=== PATIENT | male | born 1975 | race Two or more races ===

== ENCOUNTER 2020-03-10 01:45 | Emergency (ER) | payer BC ==
[2020-03-10] MEDS ORDERED: LORazepam 2 MG/ML VIAL IV STA (01:51)
[2020-03-10] MEDS ORDERED: HALOPERIDOL 5MG/ML VIAL (J1630 PER 1) IM STA (01:51)
[2020-03-10 02:00] LABS: HEMATOCRIT 49.9 % (42.0-52.0); HEMOGLOBIN 16.5 g/dl (13.5-17.5); MEAN CORPUSCULAR HEMOGLOBIN 28.8 pg (27.0-33.0); MEAN CORPUSCULAR HGB CONC 33.1 g/dl (32.0-36.5); MEAN CORPUSCULAR VOLUME 87.1 fl (80.0-96.0); PLATELET COUNT, AUTOMATED 343 10^3/uL (150-450); RED BLOOD COUNT 5.73 10^6/uL (4.30-6.10); WHITE BLOOD COUNT 13.6 10^3/uL (4.0-10.0)
[2020-03-10 02:36] LABS: ACETAMINOPHEN LEVEL < 2.0 UG/ML (10.0-30.0); ALBUMIN 4.4 GM/DL (3.2-5.2); ALT/SGPT 27 U/L (12-78); BILIRUBIN,DIRECT 0.1 MG/DL (0.0-0.2); BILIRUBIN,TOTAL 0.5 MG/DL (0.2-1.0); BLOOD UREA NITROGEN 8 MG/DL (7-18); CALCIUM LEVEL 8.9 MG/DL (8.5-10.1); CARBON DIOXIDE LEVEL 24 MEQ/L (21-32); CHLORIDE LEVEL 106 MEQ/L (98-107); CREATININE FOR GFR 1.11 MG/DL (0.70-1.30); ETHYL ALCOHOL (ETHANOL) 0.251 % (0.000-0.010); GLOMERULAR FILTRATION RATE > 60.0 (>60); GLUCOSE, FASTING 143 MG/DL (70-100); POTASSIUM SERUM 4.6 MEQ/L (3.5-5.1); SALICYLATE LEVEL 3.8 MG/DL (5.0-30.0); SODIUM LEVEL 143 MEQ/L (136-145); TOTAL PROTEIN 8.4 GM/DL (6.4-8.2)
[2020-03-10 02:38] LABS: AMPHETAMINES LEVEL URINE NEGATIVE (NEGATIVE); BARBITURATES URINE NEGATIVE (NEGATIVE); BENZODIAZEPINES URINE NEGATIVE (NEGATIVE); CANNABINOIDS URINE POSITIVE (NEGATIVE); COCAINE METABOLITE URINE NEGATIVE (NEGATIVE); METHADONE URINE NEGATIVE (NEGATIVE); OPIATES URINE NEGATIVE (NEGATIVE); PHENCYCLIDINE URINE NEGATIVE (NEGATIVE)
[2020-03-10 04:00] VITALS: BP 142/90
== END 2020-03-10 15:11 | disposition home or self-care (01) ==
LOC: M ED 01:45 → EDBD 01:45 → M ED 15:11
DX: F10.10 Alcohol abuse, uncomplicated (principal)
CPT/HCPCS: 80048; 80076; 80307; 84443; 85027; 96374; 96375; 99285; G0480; J1630; J2060

== ENCOUNTER → 2020-11-12 | Outpatient (CLI) | payer BC | LOC: M OUTALCOH 13:15 | PROVIDERS: ATTEND Psychiatry & Neurology Psychiatry | DX: Z13.39 Encounter for screening examination for other mental health and behavioral disorders (principal) ==

== ENCOUNTER 2020-12-03 08:40 | Outpatient (RCR) | payer BC | END 2020-12-07 | LOC: M OUTALCOH 08:40 | PROVIDERS: ATTEND Psychiatry & Neurology Psychiatry | DX: F10.20 Alcohol dependence, uncomplicated (principal); F17.200 Nicotine dependence, unspecified, uncomplicated ==

== ENCOUNTER 2021-01-20 00:19 | Emergency (ER) | payer BC ==
[~2021-01-20] VITALS: Ht 175.3 cm; Wt 71.3 kg
--- OUTSIDE RECORDS SUMMARY | 2021-01-20 00:24 | CCD | Summary of Care ---
Author Author [facility] Organization [facility] Address Unknown Phone Unavailable Care Team Providers Care U[employer] [place] Burnisher Name Role Phone Abelardo Thompson MD PP Reason for Visit * Reason Comments Alcohol Problem "Im here to detox from alco hol." * Auth/Cert Diagnoses / Procedures Referred By Contact Referred To Conta ct Specialty Diagnoses Alcohol withdrawal (CMS/HCC) Alcohol abuse Alcohol withdrawal syndrome without complication (CMS/HCC) [place] [address] [address] [address] [place] [address] Referral ID Status Reason Start Date Expiration Visits Vi sits Date Requested Authorized [id number] 1 1 Encounter Details Care Team Description Date Type Department Tone Whitney MD -57 [place] [address] Edilia Pond DO [address] [place] [address] Alcohol withdrawal syndrome without comp lication (CMS/HCC) (Primary Dx) 11/03/2020 Emergency [facility] 11/04/2020 10-42 [place] [address] Discharge Summary - DO John Barbosa 11/04/2020 1:44 PM EDT Inpatient Discharge Summary Patient Name: Amos OTERO Age: 7 1975 45 y.o. Patient Admitting Provider: Tone Whitney MD Discharging Provider: DO EDILIA Barbosa DO Primary Care Physician at Discharge: ABELARDO THOMPSON MD [phone] Admission Date: LOS: 0 Days Discharge Date: 11/04/2020 Admission Diagnoses: Alcohol withdrawal (CMS/[facility]) [F10.239] Alcohol abuse [F10.10] Alcohol withdrawal syndrome without complication (CMS/[facility]) [F10.230] Discharge Diagnoses: Active Problems: Alcohol abuse Essential hypertension History of dysthymic disorder Assessment and Plan: Assessment/Plan Medical Problems Problem List Alcohol abuse Essential hypertension History of dysthymic disorder A & P Notes: Mild alcohol withdrawal with underlying alcohol use disorder resolved. Patient discharged home. He will decide on what type of rehabilitation he would like if he chooses to enter rehabilitation. Discharge Instructions and Follow-Ups: Activity: activity as tolerated Diet: regular diet Recommended follow ups: The patient should follow up with PCP within 1 week(s) of discharge. Future Appts: No future appointments. Follow-up Provider: Primary care provider (PCP) Abelardo Thompson MD [address] [place] [address] Subjective HPI: Alcohol withdrawal resolved. Hospital Course: Patient was brought to hospital on observation status for alcohol use disorder with alcohol withdrawal. Patient only required very low benzodiazepine. By the next day his alcohol withdrawal symptoms are clear resolved. He had no tremors. Patient had no tachycardia throughout his ER visit and hospitalization . Mild elevation of blood pressures however patient does have underlying essential hypertension. As the patient is medically stable this time will be discharged. Patient was interested alcohol rotation however he does not wish to go directly to inpatient alcohol rehabilitation. There is not a bed available at our facility. Patient does not identify that he wishes inpatient rehabilitation at this time. Allergies: Allergies Allergen Reactions Banana Anaphylaxis Severity: Anaphylaxis - Severe; Type: Food; Severity: Anaphylaxis - Severe; Ingredients: banana; Type: Drug; Discharge Medications: Your medication list CONTINUE taking these medications Instructions Last Dose Given Next Dose Due Minipress 1 mg capsule Generic drug: prazosin PARoxetine 20 mg tablet Commonly known as: PAXIL SEROqueL 25 mg tablet Generic drug: QUEtiapine Consults: IP CONSULT TO HOSPITALIST IP CONSULT TO HOSPITAL INTERVENTION SERVICES IP CONSULT TO NUTRITION SERVICES Laboratory Results: Recent Results (from the past 24 hour(s)) Extra Urine Collection Time: 11/03/20 2:00 PM Result Value Ref Range Extra Tube Hold for add-on Urinalysis with reflex microscopic Collection Time: 11/03/20 2:01 PM Result Value Ref Range Color, Urine Light Yellow Yellow, Light Yellow, Straw, Clear, Colorless, Dark Yellow Clarity, Urine Clear Clear pH, Urine 8.0 (A) 5.0, 5.5, 6.0, 6.5, 7.0, 7.5 Leukocytes, Urine Negative Negative, Trace Nitrite, Urine Negative Negative Protein, Urine 100 (A) Negative, Trace mg/dL Glucose, Urine Normal Normal mg/dL Bilirubin, Urine Negative Negative Specific [place], Urine 1.015 1.005 - 1.030 Ketones, Urine Negative Negative, Trace mg/dL Urobilinogen, Urine Normal Normal mg/dL Blood, Urine Negative Negative Urinalysis microscopic Collection Time: 11/03/20 2:01 PM Result Value Ref Range RBC, Urine None Seen 0 - 2 /HPF WBC, Urine 0-2 0 - 2 /HPF Squamous Epithelial, Urine 1+ /lpf Bacteria, Urine None Seen Few, None Seen /HPF Urine Drug Screen Collection Time: 11/03/20 2:01 PM Result Value Ref Range Amphetamine+Me thamphetamine Screen, Ur Negative Negative (Cutoff: 1000 ng/mL) Benzodiazepine s Screen, Urine Negative Negative (Cutoff: 200 ng/mL) Cannabinoid Screen, Urine Positive (A) Negative (Cutoff: 50 ng/mL) Cocaine Screen, Urine Negative Negative (Cutoff: 300 ng/mL) Barbiturate Screen, Ur Negative Negative (Cutoff: 200 ng/mL) Opiate Scrn, Ur Negative Negative (Cutoff: 300 ng/mL) Creatinine, Urine UDS 119.6 >30.0 mg/dL Basic metabolic panel Collection Time: 11/04/20 4:54 AM Result Value Ref Range Sodium 135 135 - 146 mmol/L Potassium 3.6 3.5 - 5.3 mmol/L Chloride 103 98 - 107 mmol/L CO2 27 21 - 32 mmol/L BUN 13 7 - 23 mg/dL Creatinine 0.7 0.7 - 1.3 mg/dL Glucose 106 (H) 65 - 99 mg/dL Calcium 8.7 8.4 - 10.4 mg/dL Anion Gap 5 5 - 15 eGFR >60 >60 mL/min/1.73m*2 BUN/Creatinine Ratio 19 CBC w/ auto diff (Lab Performable) Collection Time: 11/04/20 4:54 AM Result Value Ref Range Auto WBC 6.0 4.0 - 10.5 10*3/uL RBC 4.44 4.00 - 5.80 10*6/ L Hemoglobin 13.6 13.0 - 18.0 g/dL Hematocrit 39.4 37.0 - 50.0 % MCV 88.7 77.0 - 100.0 fL MCH 30.6 26.0 - 33.0 pg MCHC 34.5 31.0 - 36.0 g/dL RDW 13.1 12.0 - 17.0 % MPV 11.1 8.0 - 12.0 fL Neutrophils Relative 55.7 35.0 - 78.0 % Lymphocytes Relative 34.1 20.0 - 42.0 % Monocytes Relative 6.4 0.0 - 15.0 % Eosinophils Relative 2.9 <=10.0 % Basophils Relative 0.7 <=2.0 % Neutrophils Absolute 3.32 1.40 - 8.40 10*3/uL Lymphocytes Absolute 2.03 1.00 - 4.00 10*3/uL Monocytes Absolute 0.38 0.00 - 1.50 10*3/uL Eosinophils Absolute 0.17 <=0.70 10*3/uL Basophils Absolute 0.04 <=0.10 10*3/uL Platelets 146 125 - 425 10*3/uL Immature Neutrophils Relative 0.2 <=0.5 % Immature Neutrophils Absolute 0.01 <=0.40 10*3/uL Procedures: Radiology Studies: CT Head wo IV Contrast PROCEDURE: CT HEAD/BRAIN W/O CONTRAST ORD#:[id number] EXAM DATE: 03/19/2018 14:04 ACC#: [id number] -REPORT: HISTORY: seizure. TECHNIQUE: Noncontrast CT of the head. This CT exam was performed using one or more of the following dose reduction techniques: automated exposure control, adjustment of the mA and/or kV according to patient size, and/or use of iterative reconstruction techniques. COMPARISON: None. FINDINGS: The ventricles are normal in size. No acute intracranial hemorrhage, mass effect, or midline shift is seen. Polypoid mucosal disease is noted in the sphenoid sinuses bilaterally. There is dehiscence of the lamina papyracea bilaterally. There is under pneumatization of the left mastoid complex. -IMPRESSION: No CT evidence of acute intracranial abnormality. DWS: [id number] -TECHNICAL NOTE: This CT exam was performed using one or more of the following dose reduction techniques: automated exposure control, adjustment of the mA and/or kV according to patient size, and/or use of iterative reconstruction techniques. [facility] RADIOLOGY FLUOROSCOPY TIME SINCE 07/08/2009: 0 sec (=0.00 min) EXAM DATE: 03/19/2018 14:04 ORDERED BY:LUCITA BOWIE [employer] [facility] PACS IMAGES READ BY: ROSANGELA CASTANEDA MD SIGNED 03/19/2018 14:14 BY ROSANGELA CASTANEDA MD [facility] [[email or web address]] ACC#: [id number] Pending Labs: Discharge Disposition: Discharge to Home (Routine) Code Status at Discharge: FULL Objective Physical Examination: Physical Exam Constitutional: Appearance: He is well-developed. Cardiovascular : Rate and Rhythm: Normal rate and regular rhythm. Heart sounds: Normal heart sounds. No murmur heard. Pulmonary: Effort: Pulmonary effort is normal. Breath sounds: Normal breath sounds. Abdominal: General: Bowel sounds are normal. Palpations: Abdomen is soft. Neurological: Comments: No tremors. Gait normal. Physical Exam at Discharge: Condition of Patient on Discharge: Good Visit Vitals BP 140/90 (BP Location: Rt Upper Arm, Patient Position: Sitting) Pulse 80 Temp 36.5 C (97.7 F) (Oral) Resp 18 Ht 5' 9" Wt 156 lb 15.5 oz (71.2 kg) SpO2 100% BMI 23.18 kg/m Smoking Status Current Every Day Smoker BSA 1.86 m Attendings Time: Total discharge planning, communication/d iscussion and coordination of care today was less than 30 min EDILIA POND DO Allergies Comments Active Allergy Reactions Severity Noted Date Severity: Anaphylaxis - Severe; Type: Food; Severity: Anaphylaxis - Severe; Ingredients: banana; Type: Drug; Banana Anaphylaxis High 12/26/2017 documented as of this encounter (statuses as of 11/05/2020) Medications End Date Status Medication Sig Dispensed Refills Start Date Active QUEtiapine (SEROqueL) 25 Take 1 tablet 0 mg tablet by mouth. Active prazosin (Minipress) 1 mg Take 1 0 capsule capsule by mouth. Active PARoxetine (PAXIL) 20 mg Take 1 tablet 0 tablet by mouth once a day. documented as of this encounter (statuses as of 11/05/2020) Active Problems Problem Noted Date Alcohol abuse 11/03/2020 Essential hypertension 11/03/2020 History of dysthymic disorder 11/03/2020 documented as of this encounter (statuses as of 11/05/2020) Resolved Problems Problem Noted Date Resolved Date Alcohol withdrawal 11/03/2020 11/04/2020 documented as of this encounter (statuses as of 11/05/2020) Immunizations Name Administration Dates Next Due Influenza Split 11/26/2009 Influenza, Quadrivalent 12/30/2017 Td 08/05/2009 documented as of this encounter Social History Date Tobacco Use Types Packs/Day Years Used Current Every Day Smoker 0.5 Comments Alcohol Use Standard Drinks/Week Not Asked 98 (1 standard drink = 0.6 oz pure alcohol) Sex Assigned at Date Recorded Male 11/03/2020 11:04 AM EDT Industry Job Start Date Occupation Not on file Not on file Not on file Date Recorded COVID-19 Exposure Response 11/03/2020 11:06 AM EDT In the last month, have you been in contact with No / Unsure someone who was confirmed or suspected to have Coronavirus / COVID-19? documented as of this encounter Last Filed Vital Signs Reading Time Taken Comments Vital Sign 140/90 11/04/2020 10:58 AM EDT Blood Pressure 80 11/04/2020 10:58 AM EDT Pulse 36.5 C (97.7 F) 11/04/2020 10:58 AM EDT Temperature 18 11/04/2020 10:58 AM EDT Respiratory Rate 100% 11/04/2020 7:03 AM EDT Oxygen Saturation - - Inhaled Oxygen Concentration 71.2 kg (156 lb 15.5 oz) 11/03/2020 6:16 PM EDT Weight 175.3 cm (5' 9") 11/03/2020 6:16 PM EDT Height 23.18 11/03/2020 6:16 PM EDT Body Mass Index documented in this encounter Functional Status Date of Assessment Functional Status Response 11/03/2020 Are you deaf or do you have serious difficulty No hearing? 11/03/2020 Are you blind or do you have serious difficulty No seeing, even when wearing glasses? 11/03/2020 Do you have serious difficulty walking or climbing N o stairs? 11/03/2020 Do you have serious difficulty dressing or No bathing? 11/03/2020 Because of a physical, mental, or emotional No condition, do you have serious difficul ty doing errands alone such as visiting the doct or? Date of Assessment Cognitive Status Response 11/03/2020 Because of a physical, mental, or emotional No condition, do you have serious difficul ty concentrating, remembering, or making d ecisions? (5 years old or older) documented as of this encounter Discharge Summaries * Edilia Pond DO - 11/04/2020 1:44 PM EDT Inpatient Discharge Summary Patient Name: Amos OTERO Age: 7 1975 45 y.o. Patient Admitting Provider: Tone Whitney MD Discharging Provider: DO EDILIA Barbosa DO Primary Care Physician at Discharge: ABELARDO THOMPSON MD [phone] Admission Date: LOS: 0 Days Discharge Date: 11/04/2020 Admission Diagnoses: Alcohol withdrawal (CMS/[facility]) [F10.239] Alcohol abuse [F10.10] Alcohol withdrawal syndrome without complication (CMS/[facility]) [F10.230] Discharge Diagnoses: Active Problems: Alcohol abuse Essential hypertension History of dysthymic disorder Assessment and Plan: Assessment/Plan Medical Problems Problem List Alcohol abuse Essential hypertension History of dysthymic disorder A & P Notes: Mild alcohol withdrawal with underlying alcohol use disorder resolved. Patient discharged home. He will decide on what type of rehabilitation he would like if he chooses to enter rehabilitation. Discharge Instructions and Follow-Ups: Activity: activity as tolerated Diet: regular diet Recommended follow ups: The patient should follow up with PCP within 1 week(s) of discharge. Future Appts: No future appointments. Follow-up Provider: Primary care provider (PCP) Abelardo Thompson MD [address] [place] [address] Subjective HPI: Alcohol withdrawal resolved. Hospital Course: Patient was brought to hospital on observation status for alcohol use disorder w ith alcohol withdrawal. Patient only required very low benzodiazepine. By the next day his alcohol withdrawal symptoms are clear resolved. He had no tremors. Patient had no tachycardia throughout his ER visit and hospitalization. Mild elevation of blood pressures however patient does have underlying essential hype rtension. As the patient is medically stable this time will be discharged. Jacquelyn mathew was interested alcohol rotation however he does not wish to go directly to inpatient alcohol rehabilitation. There is not a bed available at our facility. Patient does not identify that he wishes inpatient rehabilitation at this time . Allergies: Allergies Allergen Reactions Banana Anaphylaxis Severity: Anaphylaxis - Severe; Type: Food; Severity: Anaphylaxis - Severe; Ingredients: banana; Type: Drug; Discharge Medications: Your medication list CONTINUE taking these medications Instructions Last Dose Given Next Dose Due Minipress 1 mg capsule Generic drug: prazosin PARoxetine 20 mg tablet Commonly known as: PAXIL SEROqueL 25 mg tablet Generic drug: QUEtiapine Consults: IP CONSULT TO HOSPITALIST IP CONSULT TO HOSPITAL INTERVENTION SERVICES IP CONSULT TO NUTRITION SERVICES Laboratory Results: Recent Results (from the past 24 hour(s)) Extra Urine Collection Time: 11/03/20 2:00 PM Result Value Ref Range Extra Tube Hold for add-on Urinalysis with reflex microscopic Collection Time: 11/03/20 2:01 PM Result Value Ref Range Color, Urine Light Yellow Yellow, Light Yellow, Straw, Clear, Colorless, Dark Y ellow Clarity, Urine Clear Clear pH, Urine 8.0 (A) 5.0, 5.5, 6.0, 6.5, 7.0, 7.5 Leukocytes, Urine Negative Negative, Trace Nitrite, Urine Negative Negative Protein, Urine 100 (A) Negative, Trace mg/dL Glucose, Urine Normal Normal mg/dL Bilirubin, Urine Negative Negative Specific [place], Urine 1.015 1.005 - 1.030 Ketones, Urine Negative Negative, Trace mg/dL Urobilinogen, Urine Normal Normal mg/dL Blood, Urine Negative Negative Urinalysis microscopic Collection Time: 11/03/20 2:01 PM Result Value Ref Range RBC, Urine None Seen 0 - 2 /HPF WBC, Urine 0-2 0 - 2 /HPF Squamous Epithelial, Urine 1+ /lpf Bacteria, Urine None Seen Few, None Seen /HPF Urine Drug Screen Collection Time: 11/03/20 2:01 PM Result Value Ref Range Amphetamine+Methamphetamine Screen, Ur Negative Negative (Cutoff: 1000 ng/mL) Benzodiazepines Screen, Urine Negative Negative (Cutoff: 200 ng/mL) Cannabinoid Screen, Urine Positive (A) Negative (Cutoff: 50 ng/mL) Cocaine Screen, Urine Negative Negative (Cutoff: 300 ng/mL) Barbiturate Screen, Ur Negative Negative (Cutoff: 200 ng/mL) Opiate Scrn, Ur Negative Negative (Cutoff: 300 ng/mL) Creatinine, Urine UDS 119.6 >30.0 mg/dL Basic metabolic panel Collection Time: 11/04/20 4:54 AM Result Value Ref Range Sodium 135 135 - 146 mmol/L Potassium 3.6 3.5 - 5.3 mmol/L Chloride 103 98 - 107 mmol/L CO2 27 21 - 32 mmol/L BUN 13 7 - 23 mg/dL Creatinine 0.7 0.7 - 1.3 mg/dL Glucose 106 (H) 65 - 99 mg/dL Calcium 8.7 8.4 - 10.4 mg/dL Anion Gap 5 5 - 15 eGFR >60 >60 mL/min/1.73m*2 BUN/Creatinine Ratio 19 CBC w/ auto diff (Lab Performable) Collection Time: 11/04/20 4:54 AM Result Value Ref Range Auto WBC 6.0 4.0 - 10.5 10*3/uL RBC 4.44 4.00 - 5.80 10*6/L Hemoglobin 13.6 13.0 - 18.0 g/dL Hematocrit 39.4 37.0 - 50.0 % MCV 88.7 77.0 - 100.0 fL MCH 30.6 26.0 - 33.0 pg MCHC 34.5 31.0 - 36.0 g/dL RDW 13.1 12.0 - 17.0 % MPV 11.1 8.0 - 12.0 fL Neutrophils Relative 55.7 35.0 - 78.0 % Lymphocytes Relative 34.1 20.0 - 42.0 % Monocytes Relative 6.4 0.0 - 15.0 % Eosinophils Relative 2.9 <=10.0 % Basophils Relative 0.7 <=2.0 % Neutrophils Absolute 3.32 1.40 - 8.40 10*3/uL Lymphocytes Absolute 2.03 1.00 - 4.00 10*3/uL Monocytes Absolute 0.38 0.00 - 1.50 10*3/uL Eosinophils Absolute 0.17 <=0.70 10*3/uL Basophils Absolute 0.04 <=0.10 10*3/uL Platelets 146 125 - 425 10*3/uL Immature Neutrophils Relative 0.2 <=0.5 % Immature Neutrophils Absolute 0.01 <=0.40 10*3/uL Procedures: Radiology Studies: CT Head wo IV Contrast PROCEDURE: CT HEAD/BRAIN W/O CONTRAST ORD#:[id number] EXAM DATE: 03/19/2018 14:04 ACC#: [id number] -REPORT: HISTORY: seizure. TECHNIQUE: Noncontrast CT of the head. This CT exam was performed using one or more of the following dose reduction techniques: automated exposure control, adjustment of the mA and/or kV according to patient size, and/or use of iterative reconstruction techniques. COMPARISON: None. FINDINGS: The ventricles are normal in size. No acute intracranial hemorrhage, mass effect, or midline shift is seen. Polypoid mucosal disease is noted in the sphenoid sinuses bilaterally. There is dehiscence of the lamina papyracea bilaterally. There is under pneumatization of the left mastoid complex. -IMPRESSION: No CT evidence of acute intracranial abnormality. DWS: [id number] -TECHNICAL NOTE: This CT exam was performed using one or more of the following dose reduction techniques: automated exposure control, adjustment of the mA and/or kV according to patient size, and/or use of iterative reconstruction techniques. [facility]UM[facility] RADIOLOGY FLUOROSCOPY TIME SINCE 07/08/2009: 0 sec (=0.00 min) EXAM DATE: 03/19/2018 14:04 ORDERED BY:LUCITA BOWIE [facility] PACS IMAGES READ BY: ROSANGELA CASTANEDA MD SIGNED 03/19/2018 14:14 BY ROSANGELA CASTANEDA MD [facility] [[email or web address]] ACC#: [id number] Pending Labs: Discharge Disposition: Discharge to Home (Routine) Code Status at Discharge: FULL Objective Physical Examination: Physical Exam Constitutional: Appearance: He is well-developed. Cardiovascular: Rate and Rhythm: Normal rate and regular rhythm. Heart sounds: Normal heart sounds. No murmur heard. Pulmonary: Effort: Pulmonary effort is normal. Breath sounds: Normal breath sounds. Abdominal: General: Bowel sounds are normal. Palpations: Abdomen is soft. Neurological: Comments: No tremors. Gait normal. Physical Exam at Discharge: Condition of Patient on Discharge: Good Visit Vitals BP 140/90 (BP Location: Rt Upper Arm, Patient Position: Sitting) Pulse 80 Temp 36.5 C (97.7 F) (Oral) Resp 18 Ht 5' 9" Wt 156 lb 15.5 oz (71.2 kg) SpO2 100% BMI 23.18 kg/m Smoking Status Current Every Day Smoker BSA 1.86 m Attendings Time: Total discharge planning, communication/discussion and coordination of care tosal y was less than 30 min EDILIA POND DO documented in this encounter Discharge Instructions * Discharge Instr - AVS First Page* Safia Sampson RN - 11/04/2020 12:46 PM EDT Seek Emergency Treatment If needed, seek immediate medical attention at your local emergency department o r urgent care. Should you develop worsening chest discomfort, worsening shortne ss of breath, or other issues that may be immediately life threatening, call 9-1 -1. documented in this encounter H&P Notes * Tone Whitney MD - 11/03/2020 4:18 PM EDT Images from the original note were not included. [facility] Hospitalist History & Physical Examination Patient Name: Amos Lilly Patient Admission Date: 11/03/2020 12:22 PM Date of Service: 11/03/20 Attending Provider: Tone Whitney MD Length of Stay in Days: 0 ISOLATION: CODE STATUS: FULL Chief Complaint: Alcohol abuse, with withdrawal symptoms, wants to go to rehab History of Present Illness: this is a 45-year-old male with past medical history of hypertension, dysthymic disorder and alcohol abuse. He was inmate for 16 yr and was released in 2018. Afterwards he struggled with a lcohol and substance abuse. 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 After this episode he remained sober for 3 years, and relapsed earlier this year. At this point drinks 12-14 beers every day. He has tried to cut down his alcohol c onsumption by himself but feels after a couple of days due to easy access and av ailability. Reached out to [facility] yesterday for a possible inpatient detox, but was de clined due to no bed availability. He presented to ER today after experiencing withdrawal symptoms. His last alcohol consumption was yesterday at 9 PM. He is complaining of anorexia, diaphoresis, nausea and 4 episodes of vomiting. He was complaining of some tactile hallucinations. In ER his vitals were blood pressu re152/101, heart rate 64, respiratory rate 18, SPO2 100%. He was given Valium 10 mg in the ER. His blood alcohol level was less than 0.01. And his lab work was unremarkable. Past Medical History: History reviewed. No pertinent past medical history. Past Surgical History: History reviewed. No pertinent surgical history. Family History: Reviewed and positive for HTN in father Social History: Alcohol intake, 12-14 beers/day Breast/ PAP Examinations N/A Allergies: Allergies Allergen Reactions Banana Anaphylaxis Severity: Anaphylaxis - Severe; Type: Food; Severity: Anaphylaxis - Severe; Ingredients: banana; Type: Drug; Review of Systems: Review of Systems Constitutional: Positive for appetite change. Negative for chills, fatigue, feve r and unexpected weight change. Respiratory: Negative for cough, chest tightness and wheezing. Cardiovascular: Negative for chest pain and palpitations. Gastrointestinal: Positive for nausea and vomiting. Negative for abdominal pain. Endocrine: Negative. Genitourinary: Negative. Allergic/Immunologic: Negative for food allergies. Neurological: Positive for headaches. Negative for weakness. Psychiatric/Behavioral: Negative for behavioral problems and hallucinations. The patient is nervous/anxious. Phical Examination: Vital Signs: Vitals 11/03/2020 11/03/2020 11/03/2020 11/03/2020 11/03/2020 11/03/2020 11/03/2020 Systolic 154 - - 134 - - 152 Diastolic 100 - - 109 - - 90 Pulse 64 68 58 80 59 60 59 Temp - - - - - - 98.1 Resp 16 16 19 18 14 21 18 Height (in) - - - - - - 69 Weight (lb) - - - - - - 156.97 BMI (kg/m2) - - - - - - 23.18 kg/m2 BSA (m2) - - - - - - 1.86 m2 Some recent data might be hidden Examination: Physical Exam Constitutional: Appearance: Normal appearance. Eyes: Conjunctiva/sclera: Right eye: Right conjunctiva is injected. Left eye: Left conjunctiva is injected. Pupils: Pupils are equal, round, and reactive to light. Cardiovascular: Rate and Rhythm: Normal rate and regular rhythm. Pulses: Normal pulses. Heart sounds: Normal heart sounds. No murmur heard. Pulmonary: Effort: Pulmonary effort is normal. Breath sounds: Normal breath sounds. No wheezing, rhonchi or rales. Abdominal: General: Bowel sounds are normal. Palpations: Abdomen is soft. Musculoskeletal: General: Normal range of motion. Cervical back: No rigidity. Skin: General: Skin is warm and dry. Capillary Refill: Capillary refill takes less than 2 seconds. Neurological: General: No focal deficit present. Mental Status: He is oriented to person, place, and time. Psychiatric: Mood and Affect: Mood is anxious. Labortary Data: Results from last 7 days Lab Units 11/03/20 1317 HEMOGLOBIN g/dL 14.9 HEMATOCRIT % 42.3 WBC AUTO 10*3/uL 6.3 PLATELETS AUTO 10*3/uL 198 Lab Results Component Value Date NEUTOPHILPCT 78.8 (H) 11/03/2020 LYMPHOPCT 14.4 (L) 11/03/2020 MONOPCT 5.4 11/03/2020 EOSPCT 0.5 11/03/2020 Results from last 7 days Lab Units 11/03/20 1317 SODIUM mmol/L 142 POTASSIUM mmol/L 4.4 CHLORIDE mmol/L 104 GLUCOSE mg/dL 119* BUN mg/dL 13 CREATININE mg/dL 0.8 CALCIUM mg/dL 9.5 MAGNESIUM mg/dL 1.7 Lab Results Component Value Date PROT 8.2 11/03/2020 ALBUMIN 4.5 11/03/2020 AST 113 (H) 11/03/2020 ALT 107 (H) 11/03/2020 ALKPHOS 112 11/03/2020 TSH 1.060 12/28/2017 No results found for: LDH Lab Results Component Value Date INR 0.97 11/03/2020 Assesment & Plan of Care: 1. Acute alcohol withdrawal with past h/o DT and seizures 2. Dysthymic disorder 3. HTN Plan: CIWA score of 12 for NV, diaphoresis, tongue fasciculations, tactile hallucnitio ns and mild headache Admit for observation Diazepam as per ciwa score Ativan IV PRN for seizure. He is getting banana bag. Oral multivitamins. Will check phosphate levels, replace as needed. Will get urine for toxicology to r/o concomitant abuse. In-patient rehab no longer available at [facility]. Discussed with shelter case manager regardi ng placement once medically stable. Continue minipress for HTN. Continue paxil and seroquel for dysthymic disorder. DVT ppx with lovenox. Disposition: Needs in patient detox program Author: TONE WHITNEY MD Note created: 11/03/2020 at: 8:15 PM OTHER DIAGNOSTICS: EKG Encounter Date: 11/03/20 ECG 12 lead Result Value Diagnosis Class Abnormal Ventricular Heart Rate 63 Atrial Heart Rate 63 VA Interval 198 QRSD Interval 80 QT Interval 406 QTC Interval 415 P [place] 77 QRS [place] 73 T Wave [place] 43 Impression Normal sinus rhythm Minimal voltage criteria for LVH, may be normal variant Septal infarct , age undetermined Abnormal ECG When compared with ECG of 19-MAR-2018 14:01, Septal infarct is now present ST no longer elevated in Anterior leads Nonspecific T wave abnormality now evident in Anterior leads Confirmed by Cassius Godinez ([id number]) on 11/03/2020 1:43:08 PM Imaging: CT Head wo IV Contrast PROCEDURE: CT HEAD/BRAIN W/O CONTRAST ORD#:[id number] EXAM DATE: 03/19/2018 14:04 ACC#: [id number] -REPORT: HISTORY: seizure. TECHNIQUE: Noncontrast CT of the head. This CT exam was performed using one or more of the following dose reduction techniques: automated exposure control, adjustment of the mA and/or kV according to patient size, and/or use of iterative reconstruction techniques. COMPARISON: None. FINDINGS: The ventricles are normal in size. No acute intracranial hemorrhage, mass effect, or midline shift is seen. Polypoid mucosal disease is noted in the sphenoid sinuses bilaterally. There is dehiscence of the lamina papyracea bilaterally. There is under pneumatization of the left mastoid complex. -IMPRESSION: No CT evidence of acute intracranial abnormality. DWS: [id number] -TECHNICAL NOTE: This CT exam was performed using one or more of the following dose reduction techniques: automated exposure control, adjustment of the mA and/or kV according to patient size, and/or use of iterative reconstruction techniques. CUMULATIVE [facility] RADIOLOGY FLUOROSCOPY TIME SINCE 07/08/2009: 0 sec (=0.00 min) EXAM DATE: 03/19/2018 14:04 ORDERED BY:LUCITA BOWIE [employer] [facility] PACS IMAGES READ BY: ROSANGELA CASTANEDA MD SIGNED 03/19/2018 14:14 BY ROSANGELA CASTANEDA MD [facility] [[email or web address]] ACC#: [id number] Other Diagnostics: Home Medications: Prior to Admission medications Medication Sig Start Date End Date Taking? Authorizing Provider PARoxetine (PAXIL) 20 mg tablet Take 1 tablet by mouth once a day. Historical Provider, prazosin (Minipress) 1 mg capsule Take 1 capsule by mouth. Historical Provide rMD QUEtiapine (SEROqueL) 25 mg tablet Take 1 tablet by mouth. Historical Provide MD verónica Other assessment/ Problem List: Assessment/Plan Medical Problems Problem List * (Principal) Alcohol withdrawal (CMS/HCC) Essential hypertension Alcohol abuse History of dysthymic disorder Author: TONE WHITNEY MD Note created: 11/03/2020 at: 8:15 PM documented in this encounter Nursing Notes * Safia Sampson RN - 11/04/2020 12:50 PM EDT Pt tired, spent a lot of writers shift napping. Pt is easy to wake and pleasant. Monitored for change in condition and medicated per MAR. Provided discharge pap erwork to pt who is agreeable with discharge and states understanding of instruc tions. * DIANNE DOLAN - 11/04/2020 4:11 AM EDT Pt resting in bed without pain with call bains within reach. VSS. Assessment isaías suyapa. No complaints of pain. CIWA 0. Bed check off. No acute complications. * Monisha Hollins RN - 11/03/2020 8:52 PM EDT Patient arrived to unit at 1810 from ED. Patient is resting bed. Patient has had no complaints of pain. Patient received and ate dinner. Patient states that he would like to go to alcohol rehab. No complications. documented in this encounter ED Notes * Kingsley Bynum RN - 11/03/2020 11:13 AM EDT Patient states he wants to detox from alcohol. Patient states he has about 14 be ers a day. No tremors present. documented in this encounter Miscellaneous Notes * Hospital Course - Edilia Pond DO - 11/04/2020 1:43 PM EDT Patient was brought to hospital on observation status for alcohol use disorder w ith alcohol withdrawal. Patient only required very low benzodiazepine. By the next day his alcohol withdrawal symptoms are clear resolved. He had no tremors. Patient had no tachycardia throughout his ER visit and hospitalization. Mild elevation of blood pressures however patient does have underlying essential hype rtension. As the patient is medically stable this time will be discharged. Jacquelyn mathew was interested alcohol rotation however he does not wish to go directly to inpatient alcohol rehabilitation. There is not a bed available at our facility. Patient does not identify that he wishes inpatient rehabilitation at this time . * Case Management - Sapphire Cabello - 11/04/2020 1:25 PM EDT Spoke with pt's nurse, who states pt was just discharged. Pt discharged prior to this expert medical writer being able to complete safety evaluation. * Care Plan - Safia Sampson RN - 11/04/2020 8:33 AM EDT Problem: Pain - Adult Goal: Verbalizes/displays adequate comfort level or baseline comfort level Outcome: Progressing Problem: Skin/Tissue Integrity Goal: Skin integrity remains intact Outcome: Progressing Goal: Oral mucous membranes remain intact Outcome: Progressing Problem: Safety Adult - Fall Goal: Free from fall injury Outcome: Progressing Problem: Discharge Planning Goal: Discharge to home or other facility with appropriate resources Outcome: Progressing Problem: Metabolic/Fluid and Electrolytes - Adult Goal: Electrolytes maintained within normal limits Outcome: Progressing Goal: Hemodynamic stability and optimal renal function maintained Outcome: Progressing Goal: Glucose maintained within prescribed range Outcome: Progressing Problem: Musculoskeletal - Adult Goal: Return mobility to safest level of function Outcome: Progressing Goal: Return ADL status to a safe level of function Outcome: Progressing Goals: End of Shift Summary: See nursing note * Case Management - Shreya Orantes RN - 11/04/2020 7:38 AM EDT Obs admit alchol abuse w/ WD syptoms wants rehab. PO vitamin replacement, IV multiple vit bag x 1L, PRN valium per CIWA -AR score. HIS consult Monitor labs. . Unable to confirm d/c plan at this time CM will con tinue to follow ---- Received call from Levi Ahmadi RN addiction medicine , regarding HIS consult . Pt does not want help at this time. The expert medical writer was asked by Levi to give pt in formation on [facility] in [address] [place] [id number] the is where Pt resides . Information provided to pt by Sapphire Mustafa. Pt being d/c today fup per d/c instructions. * Care Plan - Nery Patton RN - 11/04/2020 5:25 AM EDT Problem: Pain - Adult Goal: Verbalizes/displays adequate comfort level or baseline comfort level Outcome: Progressing Problem: Skin/Tissue Integrity Goal: Skin integrity remains intact Outcome: Progressing Goal: Oral mucous membranes remain intact Outcome: Progressing Problem: Safety Adult - Fall Goal: Free from fall injury Outcome: Progressing Problem: Discharge Planning Goal: Discharge to home or other facility with appropriate resources Outcome: Progressing Problem: Chronic Conditions and Co-morbidities Goal: Patient's chronic conditions and co-morbidity symptoms are monitored and m aintained or improved Outcome: Progressing Problem: Metabolic/Fluid and Electrolytes - Adult Goal: Electrolytes maintained within normal limits Outcome: Progressing Goal: Hemodynamic stability and optimal renal function maintained Outcome: Progressing Goal: Glucose maintained within prescribed range Outcome: Progressing Problem: Musculoskeletal - Adult Goal: Return mobility to safest level of function Outcome: Progressing Goal: Return ADL status to a safe level of function Outcome: Progressing Goals: Identify possible barriers to meeting goals/advancing plan of care: HIS consult Stability of the patient: Stable End of Shift Summary: Pt received from previous RN at 0300. Pt asleep during my time. No tremors noted when awakened for assessment. Call bains within reach. * Care Plan - Monisha Holilns RN - 11/03/2020 10:40 PM EDT Problem: Discharge Planning Goal: Discharge to home or other facility with appropriate resources Outcome: Not Progressing Flowsheets (Taken 11/03/20201923) Discharge to home or other facility with appropriate resources: Identify barriers to discharge with patient and caregiver Arrange for needed discharge resources and transportation as appropriate Identify discharge learning needs (meds, wound care, etc) Refer to discharge planning if patient needs post-hospital services based on physician order or complex needs related to functional status, cognitive garry lity or social support system Problem: Metabolic/Fluid and Electrolytes - Adult Goal: Electrolytes maintained within normal limits Outcome: Not Progressing Flowsheets (Taken 11/03/20201924) Electrolytes maintained within normal limits: Monitor labs and assess patient for signs and symptoms of electrolyte imb alances Administer electrolyte replacement as ordered Monitor response to electrolyte replacements, including repeat lab result s as appropriate Problem: Musculoskeletal - Adult Goal: Return mobility to safest level of function Outcome: Not Progressing Flowsheets (Taken 11/03/20201924) Return mobility to safest level of function: Assess patient stability and activity tolerance for standing, transferrin g and ambulating with or without assistive devices Assist with transfers and ambulation using safe patient handling equipmen t as needed Instruct patient/family in ordered activity level Goal: Return ADL status to a safe level of function Outcome: Not Progressing Flowsheets (Taken 11/03/20201924) Return activities of daily living status to a safe level of function: Assess patient's activities of daily living deficits and provide assistiv e devices as needed Assist and instruct patient to increase activity and self care Problem: Pain - Adult Goal: Verbalizes/displays adequate comfort level or baseline comfort level Outcome: Progressing Problem: Infection - Adult Goal: Absence of infection during hospitalization Outcome: Progressing Goal: Absence of fever/infection during anticipated neutropenic period Outcome: Progressing Problem: Skin/Tissue Integrity Goal: Skin integrity remains intact Outcome: Progressing Goal: Oral mucous membranes remain intact Outcome: Progressing Problem: Safety Adult - Fall Goal: Free from fall injury Outcome: Progressing Problem: Chronic Conditions and Co-morbidities Goal: Patient's chronic conditions and co-morbidity symptoms are monitored and m aintained or improved Outcome: Progressing Problem: Metabolic/Fluid and Electrolytes - Adult Goal: Hemodynamic stability and optimal renal function maintained Outcome: Progressing Goal: Glucose maintained within prescribed range Outcome: Progressing Problem: Musculoskeletal - Adult Goal: Maintain proper alignment of affected body part Outcome: Progressing Goals: Monitor vital signs. Monitor for withdrawal symptoms. Monitor pain. Identify possible barriers to meeting goals/advancing plan of care: Withdrawal s ymptoms Stability of the patient: Moderately Stable - Low risk of patient condition decl ining or worsening End of Shift Summary: Report received from ED RN. Patient alert and oriented x4 upon arrival to unit. Blood pressure slightly elevated, refer to flowsheets for documentation, otherwise VSS. CIWA score 5, see MAR for medications. Reassessed CIWA at a score of 4. Patient has no complaints of pain. Patient's last BM was t ranjit prior to admission. Scheduled medications administered. Patient not on tele metry. Admission documentation completed. Patient declines to appoint a health c are proxy at this time. Patient states that he would like to go to alcohol rehab ilitation. Patient resting in bed with brakes on, call bains within reach, bed at lowest height. documented in this encounter Plan of Treatment Health Maintenance Due Date Last Done Comments CT Colonography 1974 Cologuard 1974 Colonoscopy 1974 Colorectal Cancer 1974 Screening FIT-DNA 1974 FIT 1974 FOBT 1974 HIV Screening 1974 Hepatitis C Screening 1974 Sigmoidoscopy 1974 Pneumococcal Vaccine: 1980 Pediatrics (0 to 5 Years) and At-Risk Patients (6 to 64 Years) (1 of 2 - PPSV23) DTaP,Tdap,and Td Vaccines 09/02/2009 08/05/2009 (2 - Tdap) MMR Vaccines (1 of 1 - 01/27/2018 Standard series) Influenza Vaccine (#1) 2020 12/30/2017, 11/26/2009 Diabetes Screening 12/28/2020 12/28/2017 Lipid Panel 12/28/2022 12/28/2017 HIB Vaccines Aged Out No longer eligible based on patient's age to complete this topic HPV Vaccines Aged Out No longer eligible based on patient's age to complete this topic Hepatitis A Vaccines Aged Out No longer eligibl e based on patient's age to complete this topic Hepatitis B Vaccines Aged Out No longer eligibl e based on patient's age to complete this topic IPV Vaccines Aged Out No longer eligible based on patient's age to complete this topic Meningococcal Vaccine Aged Out No longer eligib le based on patient's age to complete this topic documented as of this encounter Procedures Comments Procedure Name Priority Date/Time Associated Diag nosis CBC AUTO DIFF Routine 11/04/2020 4:54 AM EDT CBC WITH AUTO Routine 11/04/2020 DIFFERENTIAL 4:54 AM EDT BASIC METABOLIC PANEL Routine 11/04/2020 4:54 AM EDT DRUG SCREEN, URINE Add-On 11/03/2020 2:01 PM EDT URINALYSIS MICROSCOPIC STAT 11/03/2020 2:01 PM EDT URINALYSIS WITH REFLEX STAT 11/03/2020 MICROSCOPIC 2:01 PM EDT EXTRA URINE STAT 11/03/2020 2:00 PM EDT COVID-19 ORDERABLE [facility] STAT 11/03/2020 1:36 PM EDT SARS-COV-2 BY NAAT STAT 11/03/2020 1:36 PM EDT ECG 12-LEAD STAT 11/03/2020 1:21 PM EDT CBC AUTO DIFF STAT 11/03/2020 1:17 PM EDT CBC WITH AUTO STAT 11/03/2020 DIFFERENTIAL 1:17 PM EDT APTT STAT 11/03/2020 1:17 PM EDT PROTIME-INR STAT 11/03/2020 1:17 PM EDT PHOSPHORUS Add-On 11/03/2020 1:17 PM EDT MAGNESIUM STAT 11/03/2020 1:17 PM EDT ETHANOL STAT 11/03/2020 1:17 PM EDT COMPREHENSIVE METABOLIC STAT 11/03/2020 PANEL 1:17 PM EDT EXTRA TUBES Routine 11/03/2020 1:16 PM EDT YELLOW TOP Routine 11/03/2020 1:16 PM EDT LAVENDER TOP Routine 11/03/2020 1:16 PM EDT documented in this encounter Results * CBC w/ auto diff (Lab Performable) (11/04/2020 4:54 AM EDT) Auto WBC 6.0 4.0 - 10.5 10*3/uL [facility]ON GENERAL RBC 4.44 4.00 - 5.80 10*6/ S [facility] L GENERAL Hemoglobin 13.6 13.0 - 18.0 g/dL [facility] Hematocrit 39.4 37.0 - 50.0 % [facility] GENERAL MCV 88.7 77.0 - 100.0 fL [facility] GENERAL MCH 30.6 26.0 - 33.0 pg [facility] GENERAL MCHC 34.5 31.0 - 36.0 g/dL [facility] GENERAL RDW 13.1 12.0 - 17.0 % [facility] GENERAL MPV 11.1 8.0 - 12.0 fL [facility] GENERAL Neutrophils 55.7 35.0 - 78.0 % [facility] Relative GENERAL Lymphocytes 34.1 20.0 - 42.0 % [facility] Relative GENERAL Monocytes 6.4 0.0 - 15.0 % [facility] Relative GENERAL Eosinophils 2.9 <=10.0 % [facility] Relative GENERAL Basophils 0.7 <=2.0 % [facility] Relative GENERAL Neutrophils 3.32 1.40 - 8.40 10*3/uL [facility] Absolute GENERAL Lymphocytes 2.03 1.00 - 4.00 10*3/uL [facility] Absolute GENERAL Monocytes 0.38 0.00 - 1.50 10*3/uL [facility] Absolute GENERAL Eosinophils 0.17 <=0.70 10*3/uL [facility] Absolute GENERAL Basophils 0.04 <=0.10 10*3/uL [facility] Absolute GENERAL Platelets 146 125 - 425 10*3/uL [facility] ON GENERAL Immature 0.2 <=0.5 % [facility] Neutrophils GENERAL Relative Immature 0.01 <=0.40 10*3/uL [facility] Neutrophils GENERAL Absolute Specimen Blood - Blood, Venous Performing Organization Address City/State/ZIP Code P julianne Number [facility] GENERAL [address] [place] [address] * Basic metabolic panel (11/04/2020 4:54 AM EDT) Sodium 135 135 - 146 mmol/L [facility] GENERAL Potassium 3.6 3.5 - 5.3 mmol/L [facility] GENERAL Chloride 103 98 - 107 mmol/L [facility] GENERAL CO2 27 21 - 32 mmol/L [facility] GENERAL BUN 13 7 - 23 mg/dL [facility] Creatinine 0.7 0.7 - 1.3 mg/dL [facility] Glucose 106 (H) 65 - 99 mg/dL [facility] Calcium 8.7 8.4 - 10.4 mg/dL [facility] N [facility] Anion Gap 5 5 - 15 [facility] eGFR >60 >60 mL/min/1.73m*2 [facility] GENER[facility] BUN/Creatinine 19 [facility] Ratio GENERAL Specimen Blood - Blood, Venous Performing Organization Address [facility] P julianne Number [facility] [place] [place] [address] * Urine Drug Screen (11/03/2020 2:01 PM EDT) Amphetamine+Met Negative Negative (Cutoff: [facility] hamphetamine 1000 ng/mL) GENERAL Screen, Ur Benzodiazepines Negative Negative (Cutoff: [facility] Screen, Urine 200 ng/mL) GENERAL Cannabinoid Positive (A) Negative (Cutoff: [facility] Screen, Urine ng/mL) GENERAL Cocaine Screen, Negative Negative (Cutoff: [facility] Urine 300 ng/mL) GENERAL Barbiturate Negative Negative (Cutoff: [facility] Screen, Ur 200 ng/mL) GENERAL Opiate Scrn, Ur NegativeComment: Please note Negative (Cutoff : [facility] that the Opiate assay does not 300 ng/mL) GENERAL detect Oxycodone and Metabolites. Creatinine, 119.6 >30.0 mg/dL [facility] Urine UDS GENERAL Specimen Urine - Urine, Clean Catch Narrative [facility] - 11/03/2020 9:27 PM EDT Drug of Abuse tests are screening results only. Positive results are not confirmed by independent methods and should be used for medical (treatment) purposes only. Unconfirmed screening results should not be used for non-medical purposes(employment or legal testing). Performing Organization Address [facility] P julianne Number [facility] [place] [address] * Urinalysis microscopic (11/03/2020 2:01 PM EDT) RBC, Urine None Seen 0 - 2 /HPF [facility] GENER[facility] WBC, Urine 0-2 0 - 2 /HPF [facility] [place] GENERAL Squamous 1+ /lpf [facility] Epithelial, GENERAL Urine Bacteria, Urine None Seen Few, None Seen /HPF [facility] [place] GENERAL Specimen Urine - Urine, Clean Catch Performing Organization Address [facility] P julianne Number [facility] [place] [place] [address] * Urinalysis with reflex microscopic (11/03/2020 2:01 PM EDT) Color, Urine Light Yellow Yellow, Light [facility] Yellow, Straw, GENERAL Clear, Colorless, Dark Yellow Clarity, Urine Clear Clear [facility] [place] GENERAL pH, Urine 8.0 (A) 5.0, 5.5, 6.0, 6.5, [facility] 7.0, 7.5 GENERAL Leukocytes, Negative Negative, Trace [facility] Urine GENERAL Nitrite, Urine Negative Negative [facility] GENER[facility] Protein, Urine 100 (A) Negative, Trace [facility] mg/dL GENERAL Glucose, Urine Normal Normal mg/dL [facility] GENERAL Bilirubin, Negative Negative [facility] Urine GENERAL Specific 1.015 1.005 - 1.030 [facility] [place], Urine GENERAL Ketones, Urine Negative Negative, Trace [facility] mg/dL GENERAL Urobilinogen, Normal Normal mg/dL [facility] Urine GENERAL Blood, Urine Negative Negative [facility] [place] GENERAL Specimen Urine - Urine, Clean Catch Performing Organization Address [facility] P julianne Number [facility] [place] [place] [address] * EXTRA URINE (11/03/2020 2:00 PM EDT) Extra Tube Hold for add-onComment: Auto [facility] [place] resulted GENERAL Specimen Urine - Urine, Clean Catch Performing Organization Address [facility] P julianne Number [facility] [place] [place] [address] * SARS-COV-2 by NAAT (11/03/2020 1:36 PM EDT) SARS-COV-2 by Negative Negative, [facility] NAAT [facility] Specimen Swab - Nasopharyngeal structure (body structure) Narrative [facility] - 11/03/2020 4:09 PM EDT NUCLEIC ACID SEQUENCES OF THE 2019 NOVEL CORONAVIRUS WERE NOT DETECTED BY PCR. NOTE: THIS TEST WAS DEVELOPED FOR THE PURPOSE OF DIAGNOSTIC TESTING TO ALLOW FOR RAPID RESPONSE DURING A DECLARED PUBLIC HEALTH EMERGENCY AND HAS EUA CLEARANCE FROM THE FDA. NEGATIVE RESULTS DO NOT PRECLUDE 2019_nCoV INFECTION AND SHOULD NOT BE USED THE SOLE BASIS FOR PATIENT MANAGEMENT DECISIONS. Performing Organization Address City/State/ZIP Code P julianne Number [facility] [id number] [place] [address] * ECG 12 lead (11/03/2020 1:21 PM EDT) Diagnosis Class Abnormal MUSE Ventricular 63 BPM MUSE Heart Rate Atrial Heart 63 BPM MUSE Rate VA Interval 198 ms MUSE QRSD Interval 80 ms MUSE QT Interval 406 ms MUSE QTC Interval 415 ms MUSE P [place] 77 degrees MUSE QRS [place] 73 degrees MUSE T Wave [place] 43 degrees MUSE Specimen Impressions MUSE - 11/03/2020 1:21 PM EDT Normal sinus rhythm Minimal voltage criteria for LVH, may be normal variant Septal infarct , age undetermined Abnormal ECG When compared with ECG of 19-MAR-2018 14:01, Septal infarct is now present ST no longer elevated in Anterior leads Nonspecific T wave abnormality now evident in Anterior leads Confirmed by Cassius Godinez ([id number]) on 11/03/2020 1:43:08 PM Narrative Procedure Note Cassius Godinez MD - 11/03/2020 IMPRESSION: Normal sinus rhythm Minimal voltage criteria for LVH, may be normal variant Septal infarct , age undetermined Abnormal ECG When compared with ECG of 19-MAR-2018 14:01, Septal infarct is now present ST no longer elevated in Anterior leads Nonspecific T wave abnormality now evident in Anterior leads Confirmed by Cassius Godinez ([id number]) on 11/03/2020 1:43:08 PM Performing Organization Address City/State/ZIP Code P julianne Number [address] [place] [address] * Phosphorus (11/03/2020 1:17 PM EDT) Phosphorus 3.4 2.5 - 4.5 mg/dL [facility] Specimen Blood - Blood, Venous Performing Organization Address City/State/ZIP Code P julianne Number [facility] [address] [place] [address] * CBC w/ auto diff (Lab Performable) (11/03/2020 1:17 PM EDT) [facility] Auto WBC 6.3 4.0 - 10.5 10*3/uL [facility] RBC 4.76 4.00 - 5.80 10*6/ [facility] L GENERAL Hemoglobin 14.9 13.0 - 18.0 g/dL [facility] GENERAL Hematocrit 42.3 37.0 - 50.0 % [facility] MCV 88.9 77.0 - 100.0 fL [facility] MCH 31.3 26.0 - 33.0 pg [facility] MCHC 35.2 31.0 - 36.0 g/dL [facility] GENERAL RDW 13.4 12.0 - 17.0 % [facility] MPV 10.5 8.0 - 12.0 fL [facility] Neutrophils 78.8 (H) 35.0 - 78.0 % [facility] Relative GENERAL Lymphocytes 14.4 (L) 20.0 - 42.0 % [facility] Relative GENERAL Monocytes 5.4 0.0 - 15.0 % [facility] Relative GENERAL Eosinophils 0.5 <=10.0 % [facility] Relative GENERAL Basophils 0.6 <=2.0 % [facility] Relative GENERAL Neutrophils 4.99 1.40 - 8.40 10*3/uL [facility] Absolute GENERAL Lymphocytes 0.91 (L) 1.00 - 4.00 10*3/uL [facility] Absolute GENERAL Monocytes 0.34 0.00 - 1.50 10*3/uL [facility] Absolute GENERAL Eosinophils 0.03 <=0.70 10*3/uL [facility] Absolute GENERAL Basophils 0.04 <=0.10 10*3/uL [facility] Absolute GENERAL Platelets 198 125 - 425 10*3/uL [facility] ON GENERAL Immature 0.3 <=0.5 % [facility] Neutrophils GENERAL Relative Immature 0.02 <=0.40 10*3/uL [facility] Neutrophils GENERAL Absolute Specimen Blood - Blood, Venous Performing Organization Address [facility] P julianne Number [facility] [place] [place] [address] * Magnesium (11/03/2020 1:17 PM EDT) Magnesium 1.7 1.6 - 2.4 mg/dL [facility] Specimen Blood - Blood, Venous Performing Organization Address [facility] P julianne Number [facility] [place] [place] [address] * Ethanol (11/03/2020 1:17 PM EDT) Ethanol Lvl <0.01 <0.01 g/dL [facility] Specimen Blood - Blood, Venous Narrative [facility] - 11/03/2020 2:05 PM EDT This test is for medical use only Performing Organization Address [facility] P julianne Number [facility] [place] [address] * APTT (11/03/2020 1:17 PM EDT) aPTT 37 22 - 37 Seconds [facility] Specimen Blood - Blood, Venous Narrative [facility] - 11/03/2020 1:43 PM EDT aPTT THERAPEUTIC RANGE FOR UNFRACTIONATED HEPARIN IS 61-100 seconds. aPTT Therapeutic range for unfractionated heparin in Acute Coronary Syndrome-NH patients is 50-70 seconds. Performing Organization Address [facility] P julianne Number [facility] [place] [address] * Protime-INR (11/03/2020 1:17 PM EDT) Protime 11.6 9.0 - 13.0 seconds [facility] INR 0.97 0.76 - 1.09 [facility] Specimen Blood - Blood, Venous Narrative [facility] - 11/03/2020 1:43 PM EDT LESS INTENSE THERAPEUTIC RANGE: 2.00 TO 3.00 MORE INTENSE THERAPEUTIC RANGE: 2.50 TO 3.50 THERAPEUTIC RANGE FOR MECHANICAL HEART VALVE: 2.50 TO 3.50 Note: The INR is intended to be used only for patients on coumadin type anticoagulants at stable dosing levels Performing Organization Address [facility] P julianne Number [facility] [address] [place] [address] * Comprehensive metabolic panel (11/03/2020 1:17 PM EDT) Sodium 142 135 - 146 mmol/L [facility] Potassium 4.4 3.5 - 5.3 mmol/L [facility] GENERAL Chloride 104 98 - 107 mmol/L [facility] CO2 31 21 - 32 mmol/L [facility] Anion Gap 7 5 - 15 [facility] BUN 13 7 - 23 mg/dL [facility] Creatinine 0.8 0.7 - 1.3 mg/dL [facility] BUN/Creatinine 16 [facility] Ratio GENERAL Glucose 119 (H) 65 - 99 mg/dL [facility] Calcium 9.5 8.4 - 10.4 mg/dL [facility] GENERAL AST 113 (H) <59 U/L [facility] ALT (SGPT) 107 (H) <50 U/L [facility] Alkaline 112 38 - 126 U/L [facility] Phosphatase GENERAL Total Protein 8.2 6.3 - 8.2 g/dL [facility] Albumin 4.5 3.5 - 5.0 g/dL [facility] A/G Ratio 1.22 [facility] Total Bilirubin 0.8 0.1 - 1.3 mg/dL [facility] eGFR >60 >60 mL/min/1.73m*2 [facility] Specimen Blood - Blood, Venous Performing Organization Address [facility]/ZIP Code P julianne Number [facility] [place] [place] [address] * Lavender Top (11/03/2020 1:16 PM EDT) Extra Tube Hold for add-onComment: [facility] Specimen Blood - Blood, Venous Performing Organization Address City/[facility]/ZIP Code P julianne Number [facility] [place] [place] [address] * Yellow Top (11/03/2020 1:16 PM EDT) Extra Tube Hold for add-onComment: [facility] resulted GENERAL Specimen Blood - Blood, Venous Performing Organization Address City/[facility]/ZIP Code P julianne Number [facility] [place] [place] [address] documented in this encounter Visit Diagnoses Diagnosis Alcohol withdrawal syndrome without com plication (CMS/HCC) Alcohol abuse Nondependent alcohol abuse, unspecified drinking behavior Essential hypertension Unspecified essential hypertension History of dysthymic disorder documented in this encounter Administered Medications Action Date Dose Rate Site Medication Order MAR Action 11/03/2020 1:31 PM EDT 10 mg diazePAM (VALIUM) tablet 10 mg Given 10 mg, oral, Once, On Tue11/03/20 at 1300, For 1 dose diazePAM (VALIUM) tablet 10 mg 10 mg, oral, Every 1 hour PRN, other, for CIWA-AR score of 10-19, Starting on Tue11/03/20 at 1617, For 7 days, Dose: 10 mg PO every 1 hour PRN for CIWA-AR score 10-19. Hold for sedation. 11/04/2020 8:26 AM EDT 10 mg diazePAM (VALIUM) tablet 10 mg Given 10 mg, oral, Every 4 hours PRN, other, for CIWA-AR score 5-9, Starting on Tue11/03/20 at 1617, For 7 days, Dose: 10 m g PO every 4 hours PRN for CIWA-AR score 5-9. Hold for sedation. 10 mg Given 11/03/2020 9:22 PM EDT 10 mg Given 11/03/2020 5:25 PM EDT diazePAM (VALIUM) tablet 15 mg 15 mg, oral, Every 1 hour PRN, other, For CIWA-Ar score greater than 19, Starting on Tue11/03/20 at 1617, For 7 days, Dose: 15 mg PO every 1 hour PRN for CIWA-Ar score greater than 19. Hold for sedation. 11/04/2020 8:26 AM EDT 40 mg Right Lo wer Abdomen enoxaparin (LOVENOX) syringe 40 mg Given 40 mg, subcutaneous, Every 24 hours scheduled, First dose on Tue11/03/20 at 1618, For 30 days, Subcutaneous Injection Only! Give subcutaneous in the abdominal wall only, Indications: venous thrombosis 40 mg Left Lower Abdomen Given 11/03/2020 5:21 PM EDT 11/04/2020 8:26 AM EDT 1 mg folic acid (FOLVITE) tablet 1 mg Given 1 mg, oral, Daily with breakfast, First dose on Tue11/04/20 at 0800, For 30 day s 11/04/2020 8:26 AM EDT 1 tablet multivitamin 1 tablet Given 1 tablet, oral, Daily, First dose on 11/03/20 at 1730, For 30 days, This medication MUST be disposed of in black pharmaceutical waste bin. Do NOT dispose of in blue bin 1 tablet Given 11/03/2020 5:21 PM EDT 11/04/2020 8:26 AM EDT 20 mg PARoxetine (PAXIL) tablet 20 mg Given 20 mg, oral, Daily, First dose on Tue11/04/20 at 0900, For 30 days, HAZARDOUS - Handle with care 11/03/2020 9:22 PM EDT 1 mg prazosin (MINIPRESS) capsule 1 mg Given 1 mg, oral, Nightly, First dose on Tue11/03/20 at 2200, For 30 days 11/04/2020 8:26 AM EDT 25 mg QUEtiapine (SEROquel) tablet 25 mg Given 25 mg, oral, Every morning, First dose on Tue11/04/20 at 0900, For 30 days 11/03/2020 2:56 PM EDT 250 mL/hr 250 mL/hr sodium chloride 0.9 % infusion 1,000 mL New Bag with multiple vitamin 10 mL, thiamine 100 mg, folic acid 1 mg infusion 250 mL/hr, intravenous, at 250 mL/hr, Once, On Tue11/03/20 at 1417, For 1 dos e sodium chloride flush 2 mL 2 mL, intravenous, As needed, line care , Starting on Tue11/03/20 at 1617, 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 11/03/2020 11/04/2020 Medication Order 11/02/2020 1331 (Given - Provider: Erlinda huitron RN) diazePAM (VALIUM) tablet 10 mg (COMPLETED) 10 mg, oral, Once, On Tue11/03/20 at 1300, For 1 dose 172 (Given - Provider: Erlinda huitron RN) 08 (Given - Provider: Safia Sampson RN) enoxaparin (LOVENOX) syringe 40 mg 40 mg, subcutaneous, Every 24 hours scheduled, First dose on Tue11/03/20 at 1618, For 30 days, Subcutaneous Injection Only! Give subcutaneous in the abdominal wall only, Indications: venous thrombosis 825 (Given - Provider: Safia Sampson , LOKESH) folic acid (FOLVITE) tablet 1 mg 1 mg, oral, Daily with breakfast, First dose on Tue11/04/20 at 0800, For 30 day s 172 (Given - Provider: Erlinda huitron RN) 08 (Given - Provider: Safia Sampson , LOKESH) multivitamin 1 tablet 1 tablet, oral, Daily, First dose on 11/03/20 at 1730, For 30 days, This medication MUST be disposed of in black pharmaceutical waste bin. Do NOT dispose of in blue bin 08 (Given - Provider: Safia Sampson , LOKESH) PARoxetine (PAXIL) tablet 20 mg 20 mg, oral, Daily, First dose on Tue11/04/20 at 0900, For 30 days, HAZARDOUS - Handle with care 2121 (Given - Provider: Monisha xie RN) prazosin (MINIPRESS) capsule 1 mg 1 mg, oral, Nightly, First dose on Tue11/03/20 at 2200, For 30 days 08 (Given - Provider: Safia Sampson RN) QUEtiapine (SEROquel) tablet 25 mg 25 mg, oral, Every morning, First dose on Tue11/04/20 at 0900, For 30 days 1456 (New Bag - Provider: Erlinda epstein RN)1942 (Stopped - Provider: DIANNE DOLAN - Comment: completed) sodium chloride 0.9 % infusion 1,000 mL with multiple vitamin 10 mL, thiamine 100 mg, folic acid 1 mg infusion (COMPLETED) 250 mL/hr, intravenous, at 250 mL/hr, Once, On Tue11/03/20 at 1417, For 1 dos e 2121 (Given - Provider: Monisha xie RN) 825 (Given - Provider: Safia Sampson RN)123 (Given - Provider: Safia Sampson RN) thiamine (VITAMIN B-1) tablet 100 mg 100 mg, oral, 3 times daily, First dose on Tue11/03/20 at 2100, For 3 days 11/03/2020 11/04/2020 Medication Order 11/02/2020 172 (See Alternative - Provider: Amilcar Wyatt RN)2121 (See Alternative - Provider: Monisha Hollins RN) 08 (See Alternative - Provider: Safia Sampson RN) diazePAM (VALIUM) tablet 10 mg(Linked Group 1) 10 mg, oral, Every 1 hour PRN, other, for CIWA-AR score of 10-19, Starting on Tue11/03/20 at 1617, For 7 days, Dose: 10 mg PO every 1 hour PRN for CIWA-AR score 10-19. Hold for sedation. 172 (Given - Provider: Erlinda huitron RN)2121 (Given - Provider: Monisha Hollins RN) 08 (Given - Provider: Safia Sampson RN) diazePAM (VALIUM) tablet 10 mg(Linked Group 1) 10 mg, oral, Every 4 hours PRN, other, for CIWA-AR score 5-9, Starting on Tue11/03/20 at 1617, For 7 days, Dose: 10 m g PO every 4 hours PRN for CIWA-AR score 5-9. Hold for sedation. 1724 (See Alternative - Provider: Amilcar Wyatt, RN)2121 (See Alternative - Provider: Monisha Hollins, LOKESH) 825 (See Alternative - Provider: Safia Sampson, LOKESH) diazePAM (VALIUM) tablet 15 mg(Linked Group 1) 15 mg, oral, Every 1 hour PRN, other, For CIWA-Ar score greater than 19, Starting on Tue11/03/20 at 1617, For 7 days, Dose: 15 mg PO every 1 hour PRN for CIWA-Ar score greater than 19. Hold for sedation. 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
Dose: 15 mg PO ever y 1 hour PRN for CIWA-Ar score greater than 19. Hold for sedation.
Or diazePAM (VALIUM) tablet 10 mgJump to m ed 10 mg, oral, Every 1 hour PRN, other, f or CIWA-AR score of 10-19, Starting on Tue11/03/20 at 1617, For 7 days
Dose: 10 mg PO every 1 ho ur PRN for CIWA-AR score 10-19. Hold for sedation.
Or diazePAM (VALIUM) tablet 10 mgJump to m ed 10 mg, oral, Every 4 hours PRN, other, for CIWA-AR score 5-9, Starting on Tue11/03/20 at 1617, For 7 days
Dose: 10 mg PO every 4 hours VA N for CIWA-AR score 5-9. Hold for sedation.
Group 2: Insert peripheral IV (COMPLETED) Once, On Tue11/03/20 at 1618, For 1 [facility] Performed And Maintain IV access (CANCELED) Until discontinued, Starting on 10/09 at 1618, Until Specified And Saline lock IV (COMPLETED) Once, On Tue11/03/20 at 1618, For 1 [facility] Performed And sodium chloride flush 2 mLJump to med 2 mL, intravenous, As needed, line care , Starting on Tue11/03/20 at 1617
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
--- OUTSIDE RECORDS SUMMARY | 2021-01-20 00:24 | CCD | Continuity of Care Document ---
Author Author [facility] Organization [facility] Address Unknown Phone Unavailable Care Team Providers Care Pigment Processor Name Role Phone Seema Post Unavailable Unavailable Allergies, Adverse Reactions, Alerts Substance Reaction Status Criticality banana Active No Information Medications Medication Instructions Dosage Effective Dates (start - stop) Sta tus Comments doxycycline monohydrate 100 mg tablet 1 tab po bid x 7 days (#14 ) - Active Problems Condition Effective Dates (start - stop) Clinical Status C omments Human immunodeficiency virus [HIV] counseling Encntr screen for infections w sexl mode of transmiss Contact w and exposure to infect w a sexl mode of transmiss Other sex counseling Encounter for oth general cnsl and advice on contraception Procedures Procedure Date OFFICE/OUTPATIENT VISIT, NEW CHYLMD TRACH, URINE N.GONORRHOEAE, URINE CHYLMD TRACH, PHARYNGEAL N.GONORRHOEAE, PHARYNGEAL HCS Without Test CVR Blood Pressure CVR Med.Svc. Height/Weight CVR Back Stayer.Svc. Contraceptive CVR Back Stayer.Svc. Other CVR Back Stayer.Svc. STI / H Results Test Name Date and Time Measure Units Reference Range Abnormal Flag St atus Comments Panel Description: Chlamydia trachomatis rRNA [Presence] in Specimen by ADRIANNE with probe detection Final Urine CT/GC Combo - CT 00:00:00 Negative N Final Performed by:
[facility] ([id number])

Panel Description: Amplified GC - Urine Final Urine CT/GC Combo - GC 00:00:00 Negative N Final : NoThis information has been disclosed to you from confidential records which are protected by law. Privacy laws prohibityou from making any further disclosure of this information without the specific written consent of the person to whom itpertains, or otherwise permitted by law. Any unauthorized further disclosure in violation of the law may result in a fineor correction sentence or both. A general authorization for the release of medical or other information is not, except inlimited circumstances set forth in this part, sufficient authorization for further disclosure.This document contains private and confidential health information protected by state and federal law. If youhave received this document in error, please call the Director Private for [facility] at ext [phone] [email or web address] [email or web address]

Performed by:
[facility] ([id number])

Advance Directives Directive Yes / No Effective Date File Name No Information Encounters Encounter Description Practice Location Reason(s) For Visit Diagnose s Date Provider Providers Copied on Encounter OFFICE/OUTPATIENT VISIT, [facility], [address] [place] [address], [id number], tel:[phone] [facility] STI Exposure/Screening/Testing (M) (chief complaint) Human immunodeficiency virus [HIV] counselingEncntr screen for infections w sexl mode of transmissContact w and exposure to infect w a sexl mode of transmissOther sex counselingEncounter for oth general cnsl and advice on contraception Ko Stephenson. [address] [place] [address], [id number], [place]. tel:[phone] Referring Provider: Seema Thayer, [address] [place] [address], [id number]. tel:[phone] Family History Family Member Diagnosis Age At Onset No Information Immunizations Vaccine Date Status Comments No Information Payers Payer name Insurance type Covered green party ID Authorization(s ) Medicaid MC [id number] Social History Type Description Quantity Date Captured Comments Alcohol Use Details Unknown Caffeine Use Details Unknown Tobacco Use Status Cigarette smoker Smoking Status Current every day smoker Smoking Tobacco Use Details Cigarette: No Details Available Cigarette: No Details Available Sex Male Vital Signs Date / Time: Height Weight BMI Pulse Rate Blood Pressure Temperatu re Respiratory Rate Body Surface Area Head Circumference BMI percentile Pulse Ox In haled Ox 11:22 AM 69.00 in 157.60 lbs 23.27 kg/meter(2) 138/8 2 mm[Hg] Chief Complaint And Reason For Visit Most recent encounter only, dated '12/29/2020 11:15'. STI Exposure/Screening/Testing (M) (chief complaint) Reason For Referral Reason For Referral No Information Plan Of Treatment Date Type Action Status Goal Tobacco cessation counseling com pleted History Of Present Illness Encounter Date Complaint History Of Present I llness No Information Functional Status Date Functional Assessment No Information Medications Administered Medication Instructions Dosage Effective Dates (start - stop) Sta tus Comments No Information Instructions Date Instruction Additional Informati on No Information Assessments Type Assessment Date assessment Human immunodeficiency virus [HIV] couns eling assessment Encntr screen for infections w sexl mode of transmiss assessment Contact w and exposure to infect w a sex l mode of transmiss assessment Other sex counseling assessment Encounter for oth general cnsl and advic e on contraception Goals Health Concern Goal Type Priority Status Date No Information Medical Equipment Description Device [place] Device Identifier Effective Fabian es (start - stop) Status No Information Mental Status Date Cognitive Assessment Orientation - Oriented to ti me, place, person, situation.Normal Orientation Health Concerns Observation Date No Information Concern Status Date No Information Physical Examination Exam Findings Details Neurological Normal Level of consciousne ss - Normal. Orientation - Normal. Psychiatric Normal Orientation - [place] ed to time, place, person & situation.
--- OUTSIDE RECORDS SUMMARY | 2021-01-20 00:24 | CCD ---
Author Author [facility] Organization [facility] Address Unknown Phone Unavailable Care Team Providers Care Hide Examiner Name Role Phone Dalton Thayer Unavailable Unavailable Dalton Thayer Unavailable Unavailable Dalotn Thayer Unavailable Unavailable Dalton Thayer Unavailable Unavailable Dalton Thayer Unavailable Unavailable Dalton Thayer Unavailable Unavailable Goliad, J Seema PA Unavailable Unavailable Dalton Thayer PA Unavailable Unavailable Dalton Thayer PA Unavailable Unavailable GoliadDalton PA Unavailable Unavailable Dalton Thayer PA Unavailable Unavailable Dalton Thayer PA Unavailable Unavailable Dalton Thayer PA Unavailable Unavailable Goliad J Seema PA Unavailable Unavailable Goliad, J Seema PA Unavailable Unavailable Goliad, J Seema PA Unavailable Unavailable Goliad, J Seema PA Unavailable Unavailable Dalton Thayer PA Unavailable Unavailable Dalton Thayer PA Unavailable Unavailable Dalton Thayer PA Unavailable Unavailable Flaca, Dalton Stephenson PA Unavailable Unavailable Flaca, Dalton Stephenson PA Unavailable Unavailable MD Annita Cruz MD Unavailable Anthony AUGUSTINE MD Annita Unavailable Alisa, E Shaneka Unavailable Unavailable Alisa, E Shaneka Unavailable Unavailable Alisa, E Shaneka Unavailable Unavailable Alisa, E Shaneka Unavailable Unavailable Alisa, E Shaneka Unavailable Unavailable Alisa, E Shaneka Unavailable Unavailable Alisa, E Shaneka Unavailable Unavailable Alisa, E Shaneka Unavailable Unavailable Alisa, E Shaneka Unavailable Unavailable Alisa, E Shaneka Unavailable Unavailable Alisa, E Shaneka Unavailable Unavailable Alisa, E Shaneka Unavailable Unavailable Alisa, E Shaneka Unavailable Unavailable Alisa, E Shaneka Unavailable Unavailable Alisa, E Shaneka Unavailable Unavailable Alisa, E Shaneka Unavailable Unavailable Alisa, E Shaneka Unavailable Unavailable Alisa, E Shaneka Unavailable Unavailable Alisa, E Shaneka Unavailable Unavailable Alisa, E Shaneka Unavailable Unavailable Alisa, E Shaneka Unavailable Unavailable Alisa, E Shaneka Unavailable Unavailable Alisa, E Shaneka Unavailable Unavailable Alisa, E Shaneka Unavailable Unavailable Alisa, E Shaneka Unavailable Unavailable Alisa, E Shaneka Unavailable Unavailable Alisa, E Sahneka Unavailable Unavailable Alisa, E Shaneka Unavailable Unavailable Alisa, E Shaneka Unavailable Unavailable Alisa, E Shaneka Unavailable Unavailable Alisa, E Shaneka Unavailable Unavailable Alisa, E Shaneka Unavailable Unavailable Alisa, E Shaneka Unavailable Unavailable Alisa, E Shaneka Unavailable Unavailable Alisa, E Shaneka Unavailable Unavailable Alisa, E Shaneka Unavailable Unavailable Marcin Riggs MD Unavailable Unavailable Oneil, Marcin Gabriel MD Unavailable Unavailable Oneil, Marcin Gabriel MD Unavailable Unavailable Oneil, Marcin Gabriel MD Unavailable Unavailable Oneil, Marcin Gabriel MD Unavailable Unavailable Oneil, Marcin Gabriel MD Unavailable Unavailable Oneil, Marcin Gabriel MD Unavailable Unavailable Oneil, Marcin Gabriel MD Unavailable Unavailable Oneil, Marcin Gabriel MD Unavailable Unavailable Oneil, Marcin Gabriel MD Unavailable Unavailable Oneil, Marcin Gabriel MD Unavailable Unavailable Oneil, Marcin Gabriel MD Unavailable Unavailable Oneil, Marcin Gabriel MD Unavailable Unavailable Oneil, Marcin Gabriel MD Unavailable Unavailable Oneil, Marcin Gabriel MD Unavailable Unavailable Oneil, Marcin Gabriel MD Unavailable Unavailable Oneil, Marcin Gabriel MD Unavailable Unavailable Oneil, Marcin Gabriel MD Unavailable Unavailable Oneil, Marcin Gabriel MD Unavailable Unavailable Oneil, Marcin Gabriel MD Unavailable Unavailable Oneil, Marcin Gabriel MD Unavailable Unavailable Oneil, Marcin Gabriel MD Unavailable Unavailable Oneil, Marcin Gabriel MD Unavailable Unavailable Oneil, Marcin Gabriel MD Unavailable Unavailable Oneil, Marcin Gabriel MD Unavailable Unavailable Oneil, Marcin Gabriel MD Unavailable Unavailable Oneil, Marcin Gabriel MD Unavailable Unavailable Oneil, Marcin Gabriel MD Unavailable Unavailable Oneil, Marcin Gabriel MD Unavailable Unavailable Oneil, Macrin Gabriel MD Unavailable Unavailable Oneil, Marcin Gabriel MD Unavailable Unavailable Oneil, Marcin Gabriel MD Unavailable Unavailable Oneil, Marcin Gabriel MD Unavailable Unavailable Oneil, Marcin Gabriel MD Unavailable Unavailable Oneil, Marcin Gabriel MD Unavailable Unavailable Oneil, Marcin Gabriel MD Unavailable Unavailable Oneil, Marcin Gabriel MD Unavailable Unavailable Oneil, Marcin Gabriel MD Unavailable Unavailable Oneil, Marcin Gabriel MD Unavailable Unavailable Oneil, Marcin Gabriel MD Unavailable Unavailable Oneil, Marcin Gabriel MD Unavailable Unavailable Oneil, Marcin Gabriel MD Unavailable Unavailable Oneil, Marcin Gabriel MD Unavailable Unavailable Oneil, Marcin Gabriel MD Unavailable Unavailable Oneil, Marcin Gabriel MD Unavailable Unavailable Oneil, Marcin Gabriel MD Unavailable Unavailable Oneil, Marcin Gabriel MD Unavailable Unavailable Oneil, Marcin Gabriel MD Unavailable Unavailable Oneil, Marcin Gabriel MD Unavailable Unavailable Oneil, Marcin Gabriel MD Unavailable Unavailable Oneil, Marcin Gabriel MD Unavailable Unavailable Oneil, Marcin Gabriel MD Unavailable Unavailable Oneil, Marcin Gabriel MD Unavailable Unavailable Oneil, Marcin Gabriel MD Unavailable Unavailable Oneil, Marcin Gabriel MD Unavailable Unavailable Oneil, Marcin Gabriel MD Unavailable Unavailable Oneil, Marcin Gabriel MD Unavailable Unavailable Oneil, Marcin Gabriel MD Unavailable Unavailable Oneil, Marcin Gabriel MD Unavailable Unavailable Oneil, Marcin Gabriel MD Unavailable Unavailable Oneil, Marcin Gabriel MD Unavailable Unavailable Oneil, Marcin Gabriel MD Unavailable Unavailable Oneil, Marcin Gabriel MD Unavailable Unavailable Oneil, A Nery AUGUSTINE Unavailable Unavailable Oneil, A Nery AUGUSTINE Unavailable Unavailable Oneil, A Nery AUGUSTINE Unavailable Unavailable Oneil, A Nery AUGUSTINE Unavailable Unavailable Oneil, A Nery AUGUSTINE Unavailable Unavailable Oneil, A Nery AUGUSTINE Unavailable Unavailable Oneil, A Nery AUGUSTINE Unavailable Unavailable Oneil, A Nery AUGUSTINE Unavailable Unavailable Oneil, A Nery AUGUSTINE Unavailable Unavailable Oneil, A Nery AUGUSTINE Unavailable Unavailable Oneil, A Nery AUGUSTINE Unavailable Unavailable Oneil, A Nery AUGUSTINE Unavailable Unavailable Oneil, A Nery AUGUSTINE Unavailable Unavailable Oneil, A Nery AUGUSTINE Unavailable Unavailable Oneil, A Nery AUGUSTINE Unavailable Unavailable Oneil, A Nery AUGUSTINE Unavailable Unavailable Oneil, A Nery AUGUSTINE Unavailable Unavailable Oneil, A Nery AUGUSTINE Unavailable Unavailable Oneil, A Nery AUGUSTINE Unavailable Unavailable Oneil, A Nery AUGUSTINE Unavailable Unavailable Alisa, E Shaneka Unavailable Unavailable Alisa, E Shaneka Unavailable Unavailable Alisa, E Shaneka Unavailable Unavailable Alisa, E Shaneka Unavailable Unavailable Alisa, E Shaneka Unavailable Unavailable Alisa, E Shaneka Unavailable Unavailable Alisa, E Shaneka Unavailable Unavailable Alisa, E Shaneka Unavailable Unavailable Alisa, E Shaneka Unavailable Unavailable Alisa, E Shaneka Unavailable Unavailable Alisa, E Shaneka Unavailable Unavailable Alisa, E Shaneka Unavailable Unavailable Alisa, E Shaneka Unavailable Unavailable Alisa, E Shaneka Unavailable Unavailable Alisa, E Shaneka Unavailable Unavailable Alisa, E Shaneka Unavailable Unavailable Alisa, E Shaneka Unavailable Unavailable Alisa, E Shaneka Unavailable Unavailable Alisa, E Shaneka Unavailable Unavailable Alisa, E Shaneka Unavailable Unavailable Alisa, E Shaneka Unavailable Unavailable Alisa, E Shaneka Unavailable Unavailable Alisa, E Shaneka Unavailable Unavailable Alisa, E Shaneka Unavailable Unavailable Alisa, E Shaneka Unavailable Unavailable Alisa, E Shaneka Unavailable Unavailable Alisa, E Shaneka Unavailable Unavailable Alisa, E Shaneka Unavailable Unavailable Alisa, E Shaneka Unavailable Unavailable Alisa, E Shaneka Unavailable Unavailable Alisa, E Shaneka Unavailable Unavailable Alisa, E Shaneka Unavailable Unavailable Alisa, E Shaneka Unavailable Unavailable Alisa, E Shaneka Unavailable Unavailable Alisa, E Shaneka Unavailable Unavailable Alisa, E Shaneka Unavailable Unavailable [place]ori [place] DO Unavailable Unavailab le Qandah, Basem Dionicio Aziz DO Unavailable Unavailab le Qandah, Basem Dionicio Aziz DO Unavailable Unavailab le Qandah, Basem Dionicio Aziz DO Unavailable Unavailab le Qandah, Basem Dionicio Aziz DO Unavailable Unavailab le Qandah, Basem Dionicio Aziz DO Unavailable Unavailab le Qandah, Basem Dionicio Aziz DO Unavailable Unavailab le Qandah, Basem Dionicio Aziz DO Unavailable Unavailab le Qandah, Basem Dionicio Aziz DO Unavailable Unavailab le Qandah, Basem Dionicio Aziz DO Unavailable Unavailab le Qandah, Basem Dionicio Aziz DO Unavailable Unavailab le Qandah, Basem Dionicio Aziz DO Unavailable Unavailab le Qandah, Basem Dionicio Aziz DO Unavailable Unavailab le Qandah, Basem Dionicio Aziz DO Unavailable Unavailab le Qandah, Basem Dionicio Aziz DO Unavailable Unavailab le Qandah, Basem Dionicio Aziz DO Unavailable Unavailab le Qandah, Basem Dionicio Aziz DO Unavailable Unavailab le Qandah, Basem Dionicio Aziz DO Unavailable Unavailab le Qandah, Basem Dionicio Aziz DO Unavailable Unavailab le Qandah, Basem Dionicio Aziz DO Unavailable Unavailab le Qandah, Basem Dionicio Aziz DO Unavailable Unavailab le Qandah, Basem Dionicio Aziz DO Unavailable Unavailab le Qandah, Basem Dionicio Aziz DO Unavailable Unavailab le Qandah, Basem Dionicio Aziz DO Unavailable Unavailab le Qandah, Basem Dionicio Aziz DO Unavailable Unavailab le Qandah, Basem Dionicio Aziz DO Unavailable Unavailab le Qandah, Basem Dionicio Aziz DO Unavailable Unavailab le Qandah, Basem Dionicio Aziz DO Unavailable Unavailab le Qandah, Basem Dionicio Aziz DO Unavailable Unavailab le Qandah, Basem Dionicio Aziz DO Unavailable Unavailab le Qandah, Basem Dionicio Aziz DO Unavailable Unavailab le Qandah, Basem Dionicio Aziz DO Unavailable Unavailab le Qandah, Basem Dionicio Aziz DO Unavailable Unavailab le Qandah, Basem Dionicio Aziz DO Unavailable Unavailab le Qandah, Basem Dionicio Aziz DO Unavailable Unavailab le Qandah, Basem Dionicio Aziz DO Unavailable Unavailab le Qandah, Basem Dionicio Aziz DO Unavailable Unavailab le Qandah, Basem Dionicio Aziz DO Unavailable Unavailab le Qandah, Basem Dionicio Aziz DO Unavailable Unavailab le Qandah, Basem Dionicio Aziz DO Unavailable Unavailab le Qandah, Basem Dionicio Aziz DO Unavailable Unavailab le Qandah, Basem Dionicio Aziz DO Unavailable Unavailab le Qandah, Basem Dionicio Aziz DO Unavailable Unavailab le Qandah, Basem Dionicio Aziz DO Unavailable Unavailab le Qandah, Basem Dionicio Aziz DO Unavailable Unavailab le Qandah, Basem Dionicio Aziz DO Unavailable Unavailab le Qandah, Basem Dionicio Aziz DO Unavailable Unavailab le Qandah, Basem Dionicio Aziz DO Unavailable Unavailab le Qandah, Basem Dionicio Aziz DO Unavailable Unavailab le Qandah, Basem Dionicio Aziz DO Unavailable Unavailab le Qandah, Basem Dionicio Aziz DO Unavailable Unavailab le Qandah, Basem Dionicio Aziz DO Unavailable Unavailab le Qandah, Basem Dionicio Aziz DO Unavailable Unavailab le Qandah, Basem Dionicio Aziz DO Unavailable Unavailab le Qandah, Basem Dionicio Aziz DO Unavailable Unavailab le Qandah, Basem Dionicio Aziz DO Unavailable Unavailab le Qandah, Basem Dionicio Aziz DO Unavailable Unavailab le Qandah, Basem Dionicio Aziz DO Unavailable Unavailab le Qandah, Basem Dionicio Aziz DO Unavailable Unavailab le Qandah, Basem Dionicio Aziz DO Unavailable Unavailab le Qandah, Basem Dionicio Aziz DO Unavailable Unavailab le Qandah, Basem Dionicio Aziz DO Unavailable Unavailab le Qandah, Basem Dionicio Aziz DO Unavailable Unavailab le Qandah, Basem Dionicio Aziz DO Unavailable Unavailab le Qandah, Basem Dionicio Aziz DO Unavailable Unavailab le Qandah, Basem Dionicio Aziz DO Unavailable Unavailab le Qandah, Basem Dionicio Aziz DO Unavailable Unavailab le Qandah, Basem Dionicio Aziz DO Unavailable Unavailab le Qandah, Basem Dionicio Aziz DO Unavailable Unavailab le Qandah, Basem Dionicio Aziz DO Unavailable Unavailab le Qandah, Basem Dionicio Aziz DO Unavailable Unavailab le Qandah, Basem Dionicio Aziz DO Unavailable Unavailab le Qandah, Basem Dionicio Aziz DO Unavailable Unavailab le Qandah, Basem Dionicio Aziz DO Unavailable Unavailab le Qandah, Basem Dionicio Aziz DO Unavailable Unavailab le Qandah, Basem Dionicio Aziz DO Unavailable Unavailab le Qandah, Basem Dionicio Aziz DO Unavailable Unavailab le Gehr, J Goran MS, PAC Unavailable Unavailable Gehr, J Goran MS, PAC Unavailable Unavailable Gehr, J Goran MS, PAC Unavailable Unavailable Gehr, J Goran MS, PAC Unavailable Unavailable Gehr, J Goran MS, PAC Unavailable Unavailable Gehr, J Goran MS, PAC Unavailable Unavailable Gehr, J Goran MS, PAC Unavailable Unavailable Gehr, J Goran MS, PAC Unavailable Unavailable Gehr, J Goran MS, PAC Unavailable Unavailable Gehr, J Goran MS, PAC Unavailable Unavailable Gehr, J Goran MS, PAC Unavailable Unavailable Gehr, J Goran MS, PAC Unavailable Unavailable Gehr, J Goran MS, PAC Unavailable Unavailable Gehr, J Goran MS, PAC Unavailable Unavailable Gehr, J Goran MS, PAC Unavailable Unavailable Gehr, J Goran MS, PAC Unavailable Unavailable Gehr, J Goran MS, PAC Unavailable Unavailable Gehr, J Goran MS, PAC Unavailable Unavailable Gehr, J Goran MS, PAC Unavailable Unavailable Gehr, J Goran MS, PAC Unavailable Unavailable Gehr, J Goran MS, PAC Unavailable Unavailable Gehr, J Goran MS, PAC Unavailable Unavailable Gehr, J Goran MS, PAC Unavailable Unavailable Gehr, J Goran MS, PAC Unavailable Unavailable Gehr, J Goran MS, PAC Unavailable Unavailable Gehr, J Goran MS, PAC Unavailable Unavailable Gehr, J Goran MS, PAC Unavailable Unavailable Gehr, J Goran MS, PAC Unavailable Unavailable Gehr, J Goran MS, PAC Unavailable Unavailable Gehr, J Goran MS, PAC Unavailable Unavailable SPEICHER, P EDILIA MD Unavailable Unavailable SPEICHER, P EDILIA MD Unavailable Unavailable SPEICHER, P EDILIA MD Unavailable Unavailable SPEICHER, P EDILIA MD Unavailable Unavailable SPEICHER, P EDILIA MD Unavailable Unavailable SPEICHER, P EDILIA MD Unavailable Unavailable SPEICHER, P EDILIA MD Unavailable Unavailable SPEICHER, P EDILIA MD Unavailable Unavailable SPEICHER, P EDILAI MD Unavailable Unavailable SPEICHER, P EDILIA MD Unavailable Unavailable SPEICHER, P EDILIA MD Unavailable Unavailable SPEICHER, P EDILIA MD Unavailable Unavailable Re-disclosure Warning The records that you are about to access may contain information from federally-assisted alcohol or drug abuse programs. If such information is present, then the following federally mandated warning applies: This information has been disclosed to you from records protected by federal confidentiality rules (42 CFR part 2). The federal rules prohibit you from making any further disclosure of this information unless further disclosure is expressly permitted by the written consent of the person to whom it pertains or as otherwise permitted by 42 CFR part 2. A general authorization for the release of medical or other information is NOT sufficient for this purpose. The Federal rules restrict any use of the information to criminally investigate or prosecute any alcohol or drug abuse patient.The records that you are about to access may contain highly sensitive health information, the redisclosure of which is protected by Article 27-F of the [facility] Public Health law. If you continue you may have access to information: Regarding HIV / AIDS; Provided by facilities licensed or operated by the [facility] Office of Mental Health; or Provided by the [facility] Office for People With Developmental Disabilities. If such information is present, then the following [facility] mandated warning applies: This information has been disclosed to you from confidential records which are protected by state law. State law prohibits you from making any further disclosure of this information without the specific written consent of the person to whom it pertains, or as otherwise permitted by law. Any unauthorized further disclosure in violation of state law may result in a fine or snf sentence or both. A general authorization for the release of medical or other information is NOT sufficient authorization for further disc losure. Allergies and Adverse Reactions Type Description Substance Reaction Status Data Source(s ) Propensity to adverse reactions banana extract Banana Extract Active [facility] ([facility]) Propensity to adverse reactions ALLERGIES NOT ON FILE ALLERGIES NOT O N FILE [facility] Propensity to adverse reactions NO KNOWN ALLERGIES NO KNOWN ALLERGIES [facility] Propensity to adverse reactions NO KNOWN ALLERGIES NO KNOWN ALLERGIES [facility] Family History Family Member Name Family Member Gender Family Member Status Date o f Status Description Data Source(s) Unknown Female Diagnosis 02/13/2010 12:00:00 AM EST [facility] ([facility]) Unknown Female Diagnosis 02/13/2010 12:00:00 AM EST [facility] ([facility]) Encounters Encounter Providers Location Date Indications Data Source(s ) [facility]: [facility] [place] 08:31:00 AM EST - 01/05/2021 08:31:00 AM EST [facility] ([facility]) OFFICE/OUTPATIENT VISIT, [facility] Attender: Seema PARSONS [facility] 12/29/2020 11:15:00 AM EST - 12/29/2020 11:15:00 AM ES T Encounter for oth general cnsl and advice on contraceptionOther sex counselingContact w and exposure to infect w a sexl mode of transmissEncntr screen for infections w sexl mode of transmissHuman immunodeficiency virus [HIV] counseling [facility] ([facility]) Encounter for oth general cnsl and advic e on contraception Other sex counseling Contact w and exposure to infect w a sex l mode of transmiss Encntr screen for infections w sexl mode of transmiss Human immunodeficiency virus [HIV] couns eli Observation Attender: EDILIA POND MDAttender: MD Annita steven MD 11/03/2020 12:22:00 PM EDT - 11/04/2020 01:30:00 PM EDT Alcohol Problem [facility] Alcohol Problem Patient discharged. Office Visit Attender: Goran Christianson MS, PAC [facility] 10:15:00 AM EST [facility] ([facility]) Outpatient Attender: Shaneka Garayerrer: Shaneka nevarez [place]-[facility] 01/14/2020 10:12:05 AM EST - 01/14/2020 11:59:00 PM EST [facility] Patient discharged. Outpatient Attender: Shaneka Garayerrer: Shaneka nevarez [place] 01/14/2020 10:11:53 AM EST - 01/14/2020 10:11:53 AM EST [facility] Patient discharged. Outpatient Attender: Shaneka Mcconnelleferrer: Shaneka nevarez [place] 01/14/2020 10:11:39 AM EST - 01/14/2020 10:11:39 AM EST [facility] Patient discharged. Attender: Shaneka Cuellar [place] 12/31/2019 09:48:19 A M EST [facility] Outpatient Attender: Jaci [facility] 12/27/2019 12:30:00 P M EST [facility] ([facility]) Unknown [address] [place] [address] 12/25/2019 12:00:00 AM EST eCW1 ([facility]) Outpatient [address] [place] [address] 12/17/2019 12:00:00 AM EST eCW1 ([facility]) Outpatient Attender: Shaneka Garayerrer: Shaneka nevarez 5F-DI 12/04/2019 10:17:06 AM EDT - 12/04/2019 11:59:00 PM EDT [facility] Patient discharged. 5F-DI 12/04/2019 10:09:31 AM EDT [facility] Attender: Shaneka Cuellar 5F-FLCS 12/04/2019 10:08:30 A M EDT [facility] Attender: Shaneka Cuellar 5F-FLCS 12/04/2019 10:05:25 A M EDT [facility] Outpatient Attender: Shaneka Garayerrer: Shaneka nevarez 5F-DI 12/04/2019 09:31:11 AM EDT - 12/04/2019 10:16:00 AM EDT [facility] Patient discharged. Attender: Shaneka Cuellar 5F-FLCS 11/30/2019 04:55:21 P M EDT [facility] Unknown [address] [place] [address] 11/22/2019 12:00:00 AM EDT eCW1 ([facility]) Medications Medication Brand Name Start Date Product Form Dose Route Admi nistrative Instructions Pharmacy Instructions Status Indications Reaction Description Data Source(s) Doxycycline Monohydrate 100 MG Oral Tabl et doxycycline monohydrate 100 mg tablet doxycycline monohydrate 100 mg tablet 12/29/2020 12:00:00 AM EST completed 1 tab po bid x 7 days (#14) [facility] ([facility]) Insurance Providers Payer name Policy type / Coverage type Policy ID Covered democrat ID Covered democrat's relationship to sepulveda Policy Sepulveda Plan Information MEDICAID [id number] Patient [id number] CORRECTIONAL FACILITIES [id number] Patient is Insur ed [id number] [place] [id number] A [id number] CORRECTIONS B [id number] Self [id number] BLUE CHOICE/BLUE CHOICE OPTIO Medicaid [id number] [place]ICAID [place] [id number] Self [id number] [place]ID [place] [id number] Self [id number] [place] [id number] Self [id number] [place] [id number] Self [id number] [place]ICAID [place] [id number] [id number] [place] [id number] Self [id number] [place] [id number] Self [id number] [place] [id number] xxxxxxxxxxxx [id number] EXCELLUS MEDICAID REPLACEMENT Excellus [id number] self [id number] [place] [id number] Self [id number] Medicaid [id number] Self [id number] Excellus [id number] self [id number] Medicaid [id number] Self [id number] BCBS [place] [id number] SP [id number] [place] PPO [id number] SP [id number] "" Excellus [id number] Self [id number] Medicaid [id number] Self [id number] [place] PPO [id number] SP [id number] Excell [id number] Self [id number] Problems, Conditions, and Diagnoses Code Display Name Description Problem Type Effective Dates Data Source(s) F10.230 Alcohol dependence with withdrawal, unco mplicated Alcohol dependence with withdrawal, uncomplicated Diagnosis 11/03/2020 12:22:00 PM EDT [facility] Alcohol Problem Alcohol Problem Diagnosis 11/03/2020 12:2 2:00 PM EDT [facility] from [facility] etoh withdrawal from [facility] etoh withdrawal Di agnosis 11/03/2020 10:56:00 AM EDT [facility] M41.9 Scoliosis, unspecified Scoliosis, unspecified Diagnosi s 01/14/2020 10:11:39 AM EST [facility] M41.9 Scoliosis, unspecified Scoliosis, unspecified Diagnosi s 12/04/2019 10:17:06 AM EDT [facility] M41.9 [id number] Scoliosis of cervicothoracic spi ne, unspecified scoliosis type Problem 12/17/2019 12:00:00 AM EST eCW1 ([facility]) Surgeries/Procedures Procedure Description Date Indications Data Source(s) CVR Head Filter Press Tender.Svc. STI / H 12/29/2020 12:00:00 AM EST - 12/29/2020 12:00:00 AM EST [facility] ([facility]) CVR Head Filter Press Tender.Svc. Other 12/29/2020 12:00:00 AM EST - 2020 12:00:00 AM EST [facility] ([facility]) CVR Head Filter Press Tender.Svc. Contraceptive 12/29/2020 12 :00:00 AM EST - 12/29/2020 12:00:00 AM EST [facility] ([facility]) CVR Med.Svc. Height/Weight 12/29/2020 12 :00:00 AM EST - 12/29/2020 12:00:00 AM EST [facility] ([facility] [place] [facility]) CVR Blood Pressure 12/29/2020 12:00:00 AM EST - 2020 12:00:00 AM EST [facility] ([facility]) HCS Without Test 12/29/2020 12:00:00 AM EST - 12/30/19 12:00:00 AM EST [facility] ([facility]) N.GONORRHOEAE, PHARYNGEAL 12/29/2020 12: 00:00 AM EST - 12/29/2020 12:00:00 AM EST [facility] ([facility]) CHYLMD TRACH, PHARYNGEAL 12/29/2020 12:0 0:00 AM EST - 12/29/2020 12:00:00 AM EST [facility] ([facility]) N.GONORRHOEAE, URINE 12/29/2020 12:00:00 AM EST - 12/29/2020 12:00:00 AM EST [facility] ([facility]) CHYLMD TRACH, URINE 12/29/2020 12:00:00 AM EST - 12/29 12:00:00 AM EST [facility] ([facility]) OFFICE/OUTPATIENT VISIT, [facility] 12/29/2020 12:00:00 AM EST - 12/29/2020 12:00:00 AM EST [facility] ([facility]) CONTRAINDICATION TO SAUL/ARB CONTRAINDICATION TO SAUL/ARB 10/09 12:40:57 PM EDT [facility] DISCHARGE PATIENT DISCHARGE PATIENT 11/04/2020 12:40:57 PM EDT [facility] IV TO SALINE LOCK IV TO SALINE LOCK 11/04/2020 12:40:57 PM EDT [facility] FOLLOW UP PRIMARY PHYSICIAN FOLLOW UP PRIMARY PHYSICIAN 10/09 12:40:52 PM EDT [facility] DISCHARGE ACTIVITY DISCHARGE ACTIVITY 11/04/2020 12:40:52 PM EDT [facility] ADULT DISCHARGE DIET ADULT DISCHARGE DIET 11/04/2020 12:40:52 PM ED T [facility] NOTIFY PROVIDER (COMMUNICATION) NOTIFY PROVIDER (COMMUNICATI ON) 11/04/2020 12:40:52 PM EDT [facility] IP CONSULT TO NUTRITION SERVICES IP CONSULT TO NUTRITION SER VICES 11/04/2020 08:00:29 AM EDT [facility] BASIC METABOLIC PANEL BASIC METABOLIC PANEL 11/04/2020 04:54:00 AM EDT [facility] IP CONSULT TO HOSPITAL INTERVENTION SERVICES IP CONSUL T TO HOSPITAL INTERVENTION SERVICES 11/03/2020 04:17:08 PM EDT [facility] SALINE LOCK IV SALINE LOCK IV 11/03/2020 04:17:08 PM EDT [facility] INSERT SALINE LOCKIV INSERT SALINE LOCKIV 11/03/2020 04:17:08 PM ED T [facility] MAINTAIN IV ACCESS MAINTAIN IV ACCESS 11/03/2020 04:17:08 PM EDT [facility] PULSE OXIMETRY PULSE OXIMETRY 11/03/2020 04:17:08 PM EDT [facility] VITAL SIGNS VITAL SIGNS 11/03/2020 04:17:08 PM EDT [facility] ACTIVITY ACTIVITY 11/03/2020 04:17:08 PM EDT [facility] ADULT DIET ADULT DIET 11/03/2020 04:17:08 PM EDT [facility] FULL CODE FULL CODE 11/03/2020 04:17:08 PM EDT [facility] ALCOHOL AND OR DRUG ASSESSMENT ALCOHOL AND OR DRUG ASSESSMEN T 11/03/2020 04:17:[address] [facility] PLACE IN OBSERVATION PLACE IN OBSERVATION 11/03/2020 04:16:46 PM ED T [facility] ED TO FLOOR BED REQUEST ED TO FLOOR BED REQUEST 11/03/2020 04:08:30 PM EDT [facility] IP CONSULT TO HOSPITALIST IP CONSULT TO HOSPITALIST 11/03/2020 0 2:15:17 PM EDT [facility] DRUG SCREEN, URINE DRUG SCREEN, URINE 11/03/2020 02:01:00 PM EDT [facility] URINALYSIS MICROSCOPIC URINALYSIS MICROSCOPIC 11/03/2020 02:01:00 P M EDT [facility] URINALYSIS WITH REFLEX MICROSCOPIC URINALYSIS WITH REFLEX AL CROSCOPIC 11/03/2020 02:01:00 PM EDT [facility] EXTRA URINE EXTRA URINE 11/03/2020 02:00:00 PM EDT [facility] SARS-COV-2 BY NAAT SARS-COV-2 BY NAAT 11/03/2020 01:36:00 PM EDT [facility] COVID-19 ORDERABLE [facility] COVID-19 ORDERABLE [facility] 11/03/2020 01:36:00 P M EDT [facility] ECG 12-LEAD ECG 12-LEAD 11/03/2020 01:21:39 PM EDT [facility] PHOSPHORUS PHOSPHORUS 11/03/2020 01:17:00 PM EDT [facility] CBC AUTO DIFF CBC AUTO DIFF 11/03/2020 01:17:00 PM EDT [facility] MAGNESIUM MAGNESIUM 11/03/2020 01:17:00 PM EDT [facility] ETHANOL ETHANOL 11/03/2020 01:17:00 PM EDT [facility] APTT APTT 11/03/2020 01:17:00 PM EDT [facility] PROTIME-INR PROTIME-INR 11/03/2020 01:17:00 PM EDT [facility] COMPREHENSIVE METABOLIC PANEL COMPREHENSIVE METABOLIC PANEL 11/03/2020 01:17:00 PM EDT [facility] CBC WITH AUTO DIFFERENTIAL CBC WITH AUTO DIFFERENTIAL 2020 01:17:00 PM EDT [facility] LAVENDER TOP LAVENDER TOP 11/03/2020 01:16:00 PM EDT [facility] YELLOW TOP YELLOW TOP 11/03/2020 01:16:00 PM EDT [facility] EXTRA TUBES EXTRA TUBES 11/03/2020 01:16:00 PM EDT [facility] XR SCOLIOSIS 1 VIEW <td>XR SCOLIOSIS 1 VIEW</td> <td>Routine</td><td>12/04/2019 10:18 AM EDT</td><td> Scoliosis, unspecified</td><td> </td> 12/04/2019 02:18:15 PM EDT Scoliosis, unspecified [facility] Scoliosis, unspecified Results ID Date Data Source [id number] 12/29/2020 12:00:00 AM EST [facility] ([facility]) Name Value Range Interpretation Code Description Data Dipika rce(s) Supporting Document(s) Negative Normal (applies to non-numeric resul ts) Urine CT/GC Combo - GC [facility] ([facility]) : NoThis information has been di sclosed to you from confidential records which are protected by law. Privacy laws prohibityou from making any further disclosure of this information without the specific written consent of the person to whom itpertains, or otherwise permitted by law. Any unauthorized further disclosure in violation of the law may result in a fineor snf sentence or both. A general authorization for the release of medical or other information is not, except inlimited circumstances set forth in this part, sufficient authorization for further disclosure.This document contains private and confidential health information protected by state and federal law. If youhave received this document in error, please call the Atmospheric Technician for CDD at ext [phone] [email or web address] [email or web address] Performed by: [employer] ([id number]) ID Date Data Source [id number] 12/29/2020 12:00:00 AM EST [facility] ([facility]) Name Value Range Interpretation Code Description Data Dipika rce(s) Supporting Document(s) Negative Normal (applies to non-numeric resul ts) Urine CT/GC Combo - CT [facility] ID Date Data Source [id number] 11/04/2020 05:28:29 PM EDT [facility] Name Value Range Interpretation Code Description Data Dipika rce(s) Supporting Document(s) Disch [facility]m [facility] HILCPf4uYmNEIdDs51/UKUwbRKKyl5QbYOblOHp2OIrxEWGrR9RwJAV6sV7pVTE9ZTvYLtIwRwFyAOL6 lbm [file] 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/jG8fK/OVa75q9S/j35Kz73Le6iu2d6mrgtxB+qTNyLYrprD [file] ICAgICAgICAgICAgICAgICAgICAgICAgICAgICAgIC AgICAgICAgICAgICAgICAgICAgICAgICAgICAgICAgICAgICAgICAgICAgICAgICAgICAgICAgICAgIC AgDQogICAgICAgICAgICAgICAgICAgICAgICAgICAgICAgICAgICAgICAgICAgICAgICAgICAgICAgIC AgICAgICAgICAgICAgICAgICAgICAgICAgICAgICAg ICAgICAgICAgICAgDQogICAgICAgICAgICAgICAgICAgICAgICAgICAgICAgICAgICAgICAgICAgICAg ICAgICAgICAgICAgICAgICAgICAgICAgICAgICAgICAgICAgICAgICAgICAgICAgICAgICAgDQogICAg ICAgICAgICAgICAgICAgICAgICAgICAgICAgICAgIC AgICAgICAgICAgICAgICAgICAgICAgICAgICAgICAgICAgICAgICAgICAgICAgICAgICAgICAgICAgIC AgICAgDQogICAgICAgICAgICAgICAgICAgICAgICAgICAgICAgICAgICAgICAgICAgICAgICAgICAgIC AgICAgICAgICAgICAgICAgICAgICAgICAgICAgICAg ICAgICAgICAgICAgICAgDQogICAgICAgICAgICAgICAgICAgICAgICAgICAgICAgICAgICAgICAgICAg ICAgICAgICAgICAgICAgICAgICAgICAgICAgICAgICAgICAgICAgICAgICAgICAgICAgICAgICAgDQog ICAgICAgICAgICAgICAgICAgICAgICAgICAgICAgIC AgICAgICAgICAgICAgICAgICAgICAgICAgICAgICAgICAgICAgICAgICAgICAgICAgICAgICAgICAgIC AgICAgICAgDQogICAgICAgICAgICAgICAgICAgICAgICAgICAgICAgICAgICAgICAgICAgICAgICAgIC AgICAgICAgICAgICAgICAgICAgICAgICAgICAgICAg ICAgICAgICAgICAgICAgICAgDQogICAgICAgICAgICAgICAgICAgICAgICAgICAgICAgICAgICAgICAg ICAgICAgICAgICAgICAgICAgICAgICAgICAgICAgICAgICAgICAgICAgICAgICAgICAgICAgICAgICAg DQogICAgICAgICAgICAgICAgICAgICAgICAgICAgIC AgICAgICAgICAgICAgICAgICAgICAgICAgICAgICAgICAgICAgICAgICAgICAgICAgICAgICAgICAgIC GvZCCyOBShKQRtWOj6R2xtOLIiEISbXK6rKPj8Dg4+ADdHBlGrUKK3haMexW0LNA3aw0YvDDfzVFBag0 ClKQq8QS8ZUTJlEEkkTG8MWEaxtj7LPCJbWEUaqCUA q6maRbVeFVO5RTGtPnwkYF5XRHMhV3jtvfBmQDGqQNZJLPsqTWDSPGsxIJURHCOlKYBwKcUqSnFsJYDn RQNvSHYMOWN3BPEyDgSwYJMtANIzHY5XBAUeN332auYiDU3ROe0YCoHiXO1cja5SPLAsYKIgCpfHRbo4 CBovQC2KfXInqDN4MvSmFTLJQkDeO6ebh4YfXHAhFM DCCXvmLK2Ys2ZefTCsGIl+Vd8FKQ8sc9FuFPn9BkTxHC8pas3UMNfKKpIrB0JccCtyBPDyu6BbDAFsIA VLjX0hJZP7NVG2MJ3ptwffJOJMnIFyY1athsxeZW0sLKDnVT5nBK5fODNlVZSyHwD3UTOICA5FPHZsTC LjfNWwPANlZDJUJY1GPMkuQIC7IOFupsJbyTHhHEif YE4KUHWbugNfZZRvHNKJUVf+Qx5CEF9gm4DhJKp7AIUgQI5iok6KNZdAXzHtW3E5iNOhZ5R5GHhhJt7T UODsHCFvXBPzJLUNENceRL4ZOU9easG6SX9PxRXrWSIjJBAugJDhPYn4E77quBYrUMwvAX1MCQR+Nahid+ Wx1ILJJcMTUuDJNjSqJdVHCZVoUmZ3UnU7DMj0WtH9 CvGT03lGovgwWhTRzcGD8NJT6yBFEsMGYWEJ4FoYDkfQ0feiF1TsYlUOPWNnYeO08zfIHsIZJpHIQfYT SzJw2FAKLeT4KidpDpaLfeznZtSBHdDHLIGT9RETtkssVmaETdfBwwFG42uUsyAO0JRx0ZSrSnMK3urd 0OmIUsXl1KZFR6KR1GOFDoKHJpFLUhHAF2GCEsBfFf JLooQAQkWLYdZYG8UPHxZTEvNO2PKeUzELBnCsb9VQJkPXSyRPYgrp0FOZNmJOM6XVK7RiIsOPFiWDGv OCiwURQqCJViQTS3IYFhKQNxYY7IWwFkLODzOBO3WDPxZRVaOGOrsa1TIVRrVGTxLkK7QPJeLPLlATOa MVgkUGYdFHL3KFM5LFBdQUMcLG8NYgLbAQTaIUTuEc ZnCZYmDJSvvc1AGCVwMTYtShChZVVrGTQaDDYrANqsBJDkFHF2XXMkATFgYPHrGA0DSxJxTSUnNOitTQ ixFUTuXFPjhr4ELPKkQLPgAPTqLWVdQFToFBPoGBdeGDWaQRAvOwF1UCPiMBZiUV4KXvOoBVCrFRK5Yi LrEZQyDIDaor2EECSyJWOpRvD2VLNbPCNuKUFnQYhh SKVoLRRsSNT7CILpCXBeBY6IOgOdXJZwPBElGuHaGOSbPRXkhk9UWLWhDWSjKgUjFaSnGIWgEOEyRXmh CODpPHG0Eiw0GRLpLCBcQY0TCrEyFTJlEDazPQJsMYGvBEWouw1DRUPnZVFaVFg0RhNoTERrNSFrNXrn PIEdACH8FHL5QNDrXIQfRR1CCxTdSYClXYvaPQTtQE TsGWJqqg9JVLZsSFOuXJCuPESuIZYmRUFgESsrDEJlKZUaUCDtKBZfCGYpKY2OSlYiPKAkPbF8XVHxOO RjWXMupm5TNBToKNTgQTL2XZXtGFIvMPUnNYhnDPZuDTStOLI3CKXfNDXiWV2WKwXeIKCmEpXkGQmtMA EkBARlho1GNNSwQRJdIeHzJDRyMEBjDWYtWBwyOYVy IPZlRuH3TPFrCSNrSR3UYcHsLEAbAoBxFZQxVHIwAZEack1JLTUmMEXdQuYvBrLoJWNcZZXgAFmeHXAm OWG5IAU3STWnHPItJH2QWhIdKCYhVfV6TkUuAEGcVAFnfj9XSEPiCYOiSqCdASSwWLZrFNNvKNrdMQJc JUY8JRI3ZGNzYBRgHV3TCrFkKGUiWorbPHTvFDWuBQ Ijqn1KXXOiVGUkFIW3BzWjFDCsNJUfRDbcOIRnKSN1CSftHJVjOGQwDA3VYeCuERRnGxy7UvKhYKHwNK Emar5CNOSjJJL1VDNrGuAzSYHfYUQpRBvlBMIaBNHsMLd4PBJtHQLhSD8FQwHvAMJkXBI5UaKlFEIxSA Qskr8ZsDGppJxyar0GQMcWHb3XzWvuWZT7UWhkKy4h uSY2QPNfUKCYSu5LqkNyZCFmZXASQGjjXRJtBULbDHJtIVPcCsZqQmG2OxVcIzMlHhI6GDX3AcCbXQXb XjH1QOT4S9GvVnVlGFC6XazfSjP3XkLkQiA0YEAzHdP1VCN+JZ0sNFc+Lh0Jz4MqljR6rsXuQJq9HMg0 NZ5FBHJTB3WKPh== ID Date Data Source [id number] 11/04/2020 05:28:21 PM EDT [facility] Name Value Range Interpretation Code Description Data Dipika rce(s) Supporting Document(s) Nursing [facility] VNROHx3tCbAGVsZd74/DQUnxCXLsk8DzOYbwSCc9IDfjKPNeI8KnYFQ2yP9qBXR6ZVrTQgSaTgJkTEH9 lbm UgHvvTFzCtHOFhKznPBfGeQOaqAkrcyFArLE8CmVS9FESdP49vIDBcWUMcY3StFCCbOOr+Tx9HRFMmxL EjCX8ZJbpV4Vdsq6k2UO1qxQ/PjqnYEOATIDlRIeNwdgCEr7d4ar6uoBZLxG6y76grc58jDzj/M/Zr5C wJRcl9iB09uf/PhaKUin9/sKsrjJwe1e/7BCAJom5A P/1eqeoAjup4P8QYTnVEXHBF3wIc/uY9FblxE7o14rK63xbGOZH6+gyBJxVZH49bk+s7ThkvtNPfwFZ1 0Vj7eGWmAG7pGRyZhLpbOmpLiU+eUDiytKWqMpr0fmlGtpzW4ZslSSMw8dbQJHAD0C9FI5taWKGszaYZ ZboA3PJMq1vlHPsJP66jk94Hssw9Zzpsg+WqWEq4UN X7E1wuLZ58UG8RxNCe50Xzn1DKiqivSNMhyBdmRtGrYZmK8XwwoCWJQ+dM350gGr4y4wu93WmO++BkVq jJvLvmk9BdS3BcQ/VgIS3abjw4d1B0oSsIi7yMESozRliIyFa7oJo22PTgIekZnMkjB+fOm1fxQBLfVo rz2J1DJ9JXm+faECW4R5EFhedfiAMredPOquvaz+Nikhil [file] LxYPsNDkUxRX8GEEo= ID Date Data Source [id number] 11/04/2020 05:44:52 AM EDT [facility] Name Value Range Interpretation Code Description Data Dipika rce(s) Supporting Document(s) SODIUM (MMOL/L) IN SER/PLAS 135-146 [facility] POTASSIUM (MMOL/L) IN SER/PLAS 3.5-5.3 [facility] CHLORIDE (MMOL/L) IN SER/PLAS 98-107 [facility] CARBON DIOXIDE, TOTAL (MMOL/L) IN SER/PLAS 21-32 [facility] UREA NITROGEN (MG/DL) IN SER/PLAS 7-23 [facility] CREATININE (MG/DL) IN SER/PLAS 0.7-1.3 [facility] GLUCOSE (MG/DL) IN SER/PLAS 65-99 Above high normal [facility] CALCIUM (MG/DL) IN SER/PLAS 8.4-10.4 [facility] ANION GAP IN SER/PLAS 5-15 [facility] GLOMERULAR FILTRATION RATE ML/MIN/1.73 SQ M.PREDICTED >60 [facility] UREA NITROGEN/CREATININE (MASS RATIO) IN SER/PLAS [facility] ID Date Data Source [id number] 11/04/2020 05:33:18 AM EDT [facility] Name Value Range Interpretation Code Description Data Dipika rce(s) Supporting Document(s) LEUKOCYTES(10*3/UL) IN BLOOD BY AUTOMATED COUNT 4.0-10.5 [facility] ERYTHROCYTES (10*6/UL) IN BLOOD BY AUTOMATED COUNT 4.00-5. 80 [facility] HEMOGLOBIN (G/DL) IN BLOOD 13.0-18.0 [facility] HEMATOCRIT (%) IN BLOOD BY AUTOMATED COUNT 37.0-50.0 [facility] ERYTHROCYTE MEAN CORPUSCULAR VOLUME (FL) BY AUTOMATED COUNT 77.0-100.0 [facility] ERYTHROCYTE MEAN CORPUSCULAR HEMOGLOBIN (PG) BY AUTOMATED COUNT 26.0-33.0 [facility] ERYTHROCYTE MEAN CORPUSCULAR HEMOGLOBIN CONCENTRATION (G/DL) BY AUTOMATED 31.0-36.0 [facility] ERYTHROCYTE DISTRIBUTION WIDTH (RATIO) BY AUTOMATED COUNT 12.0-17.0 [facility] PLATELET MEAN VOLUME (FL) IN BLOOD BY AUTOMATED COUNT 8.0- 12.0 [facility] NEUTROPHILS/100 LEUKOCYTES IN BLOOD BY AUTOMATED COUNT 35. 0-78.0 [facility] LYMPHOCYTES/100 LEUKOCYTES IN BLOOD BY AUTOMATED COUNT 20. 0-42.0 [facility] MONOCYTES/100 LEUKOCYTES IN BLOOD BY AUTOMATED COUNT 0.0-1 5.0 [facility] EOSINOPHILS/100 LEUKOCYTES IN BLOOD BY AUTOMATED COUNT <=1 0.0 [facility] BASOPHILS/100 LEUKOCYTES IN BLOOD BY AUTOMATED COUNT <=2.0 [facility] NEUTROPHILS (10*3/UL) IN BLOOD BY AUTOMATED COUNT 1.40-8.4 0 [facility] LYMPHOCYTES (10*3/UL) IN BLOOD BY AUTOMATED COUNT 1.00-4.0 0 [facility] MONOCYTES (10*3/UL) IN BLOOD BY AUTOMATED COUNT 0.00-1.50 [facility] EOSINOPHILS (10*3/UL) IN BLOOD BY AUTOMATED COUNT <=0.70 [facility] BASOPHILS (10*3/UL) IN BLOOD BY AUTOMATED COUNT <=0.10 [facility] PLATELETS (10*3/UL) IN BLOOD AUTOMATED COUNT 125-425 [facility] IMMATURE NEUTROPHILS/100 LEUKOCYTES IN BLOOD BY AUTOMATED COUNT <=0.5 [facility] IMMATURE NEUTROPHILS (10*3/UL) IN BLOOD BY AUTOMATED COUNT <=0.40 [facility] ID Date Data Source [id number] 11/04/2020 04:12:26 AM EDT [facility] Name Value Range Interpretation Code Description Data Dipika rce(s) Supporting Document(s) Nursing [facility] OZAOYu4zXbDISoOo88/EOAqkJJKxx9FlPGvlSJe0LFrjBSWjD3YcNJU8hE8pCLK0VWvZDlZkKeCfYGC1 lbm NcVwmXLyCfKWXyDqlHLkOjPIliDktetPUhRR6KlUX2VMKmL83pXIZwRGGqP5HvDYs8Ef5+AOehFSU7jq JzwL4DCTLTTIgW9mTMqm+0/+NMpVmdW9xFaPyR0ssWMQ1SjSiQhwFmJjrr53WIt146gra+B+6TD3HoJG SffHxu/w3iZQb369o42ttQWQr/84840mB8Wfn+JWqx QM/W0r0zWGU8ZTWqEwRtqmo/EUjW7L8jJz6dAykKUjOfoJfODsRs/lpvXWQ/tOoRIcAZqjFH1XQAwh3P 0OdP0UXoDEuHEWavhJIFuzXAUMDmPrk5enAXJWNg5flUqAghOmxnLkuNKoFhTNArESFsPIQGTFLHjUbt iEBNcacOHm41fEbgpqCNNDljEu27nFN2TUPJBydDbo FHcDYb9fJdCezGcNZmZFFf9vWIjFQbfNQF5McmKYbFUCEihcwE7S8buUaqLfGq2w/Qi3t1hSlvK1vXxd ND26ybPjU0jJCgy5lut7BcrFAANEWlO+X4g3YA8iNkmn0BowK0gB7QMBOCwCsXhXRUp+E9SAfszrdtEm J52lGpk8kyoEm67WVBUx0fOVA3JSgvGfnlGjdFHQdj ElvJ0kbLYDGZSpDxbbrLcueeqNrNAtoStlxbB3BhLg3xCw6UnceEnBIEm7Xf8h1auKSHPt+f2xL4weEQ MX7VeVz267S1Aokh1+uwzG62nYHcEJ25UOsXMwcVAI7yc0VZaVcSGIl1WDMBsSoLmNp3341UrvQr/LILLIE [file] [place] [file] AgICAgICAgICAgICAgICAgICAgICAgICAgICAgICAgICAgICAgICAgICAgICAgICAgICAgICAgICAgIC UbLMCtBDEwVU3BANIbLKZlDERpKHWwRBIzQENnBAGd ICAgICAgICAgICAgICAgICAgICAgICAgICAgICAgICAgICAgICAgICAgICAgICAgICAgICAgICAgICAg DROiLCRqAVZiOMQgKZWsTCPnDA4JLNIkSENbBYBcVLQhUUSuKZAtWHQhQYTdINWnZJUtDBRzKUHzNXYf ICAgICAgICAgICAgICAgICAgICAgICAgICAgICAgIC WvEEKoEATxHVZkQYVdJEFiKHGpONXiWRVsWQUwXB7GTTHzLFLxUNTsFKVrTZWyHSKmKZUuJQFhHPApYZ AgICAgICAgICAgICAgICAgICAgICAgICAgICAgICAgICAgICAgICAgICAgICAgICAgICAgICAgICAgIC WtLKGmNZFiLFLwLV0HIGUkPIUuEXPiGIGcACFrZTVg ICAgICAgICAgICAgICAgICAgICAgICAgICAgICAgICAgICAgICAgICAgICAgICAgICAgICAgICAgICAg KCKtFVVfTADpCXKmSPHeXYJcDHOyMT8XYBGqMISfYGVmGIYbZXFgQCOdBPMjAOLrPOEqJERgASTcANBb ICAgICAgICAgICAgICAgICAgICAgICAgICAgICAgIC YuQNYfJHUjUDYwDIEmKYIhDBHyLRBvWBLjYQJlVCPpAK2XMCQxYLFhRZTaMLBxLJNmRSTvXBJgHPZjFQ AgICAgICAgICAgICAgICAgICAgICAgICAgICAgICAgICAgICAgICAgICAgICAgICAgICAgICAgICAgIC VsOPIuMUZdAPAuRYYmWI9PXTMoMBRqXSAtMIOgAQQi ICAgICAgICAgICAgICAgICAgICAgICAgICAgICAgICAgICAgICAgICAgICAgICAgICAgICAgICAgICAg RKYdKVNgXODwHFZzPPPaONDxTRBiVCQyBI8RUEVkDSXyLYVzUKWeALZpCZDgJTFeOCKgAIFkVIPyBMVt ICAgICAgICAgICAgICAgICAgICAgICAgICAgICAgIC VrDSDnFFLbJWCyMGHtAXXdEAKmBXCkNTKeGMRhSGQgPXXvEI2LPASfIATtFMUzJHBvBWDcVBMpIZYmVK AgICAgICAgICAgICAgICAgICAgICAgICAgICAgICAgICAgICAgICAgICAgICAgICAgICAgICAgICAgIC MuJTLyOCHxWYZzENYdMSKpRX5XTQ60cGFhw6Y6ZUXq QI6vtny/Hy9MMZrgghGokLElYL3ACmRoNN0pcd4YYoNxRA3ypi1FQYsXDwOlK6Z4tYHqHEPyVOEHKmYg A20cGCviPp18GKtzBCRpJsFfEBg3El2FUrPwS2rtMGKkCsU0NNGnZdAuCNtjRD7Hs8BiqZPhLJm+Pg0K ZB3ow9MwMDuvClLsHV5kdn1SCQyWEzDeY1HwlcR9AY WiFOWzZv5KCRTzAEAfjFKtRkVmOQQKAuCiZ0EwzZ18XKJAVh2+JDzhgcAjQfhNNnFvNABym2HlRRn8TU 1TEFEpDAp6tORmUbBjv5jcHdBJf8LjSUG0MDxOSBStGUIAFmdPJRM7POpkEowlZnCzPGVoPNdfBPKRSO aNHsHxC7Ikr0LsViJ1ATGkNzPkCBgaTZToDeAqLI66 bIioMQ7WMNWgMFSaAI39JLMcCQKfPl2BIo9CMlQtLB3hbg5PYoKcVPFhYxlBAhv7GWxbWZ5MnVEhZ9Jk dOTab3hNPuGbX0XFOREgZZOeSq6JPDQvQmJoCVUaXKkyZD9iKMYoNTBEtLbumbA8AC9RTI4ikjAtJF7Q VrRaLl8iQs7OYpCuZ2RcG9RfYJJxKYMGPWnlRH3GDY xuVM4sHQ2Yx4WBgRTsgS0quk3EDBUvRHWcBmfxyk9ZRwcpX0U0qFwaGSNpEoLcRJZXHLqsAM7HDAVqOD W4GPGjSILwHXLACcGlY05bAE4XY7Rrs25iYfK3IAJxSdGzZPacBB79zNxkcwTjfPXrpHomVN9JKk8+DQ plbmRvYmoNCnhyZWYNCjAgMjUNCjAwMDAwMDAwMDAg GbB0EwXfUt5JELUkPCQbRQRaKwTlIHPzYRMiIFqvIMJgNZP0Dvj7OUSjYUOeVN3NJzAiHVHyCJy8CsSp BKBdYBBlhf3JBFWoDPQgGQR3ZeIdDNFlVUUdZYcgWQVfRSXsCxTaDEQtLSVbHR7AJiWaBBWjGGA2GwHw OSXuRUBuvz7MQDSjVHJqOaP1EtHeOHFdKTGqHQagKM QdAHYfHZw0EGLkEHTlWM8SMnCfDRUhZMS9WRhzTEFbDQLoec9XDSWnSSUsWqqkIsJsKWQpYLMqCIziVN SqQIJxNDB5SORbTSFqQI7BTtVkKBBqEEWvVJDuRCWfOWYlgw7VOLKqDWRvXZU4AMQoSCLnNBPxDMzxFP YcWEH4ZelmIEGyWTNfXP4GNkDfZYVqORJ1YKUuALWj SNVsny6BIJOmHRWlRnNjSOGkMDEdHOFdNEdmODRuTIM6TxB0JHJvBBNfZH0AFmTxIJLsNDqaWBegLWWn WKXxoc2XPLXeCMVlAtW9SkXkGIQdASJyHToiSLDxAJG3EqF0EBNfFSEsLK3YMwOhHAVsRZuvIGJfFSTu LRWjwr3YIIZtDYUkLDLtIZHoZZVmTTVuUGazAHGfCH Z2VTeyXUDoNXHqWL1NFcIbKBErUFd8PnPvRUWcENJbnc5BmZHifEhypm9YZHmYIc0NtShrTCC7QQemZq 1dzIYaUCVcDZYTEt5FamFeKYKiEHSILEtcZGHjZQFfRZFzJQFtXwWdRJE6LSZgAUA3XAR0ZLUqI3StRK ofWeW5JZH4QNGkBuG2BYQqIpU7XuTxJWh3DyAdT5N9 YTJlOGE+TC4cZQm+Ud8Yn0OwvaT6bxDdFDtoDQu3OX4FKKJDG7OVVi== ID Date Data Source [id number] 11/03/2020 10:40:06 PM EDT [facility] Name Value Range Interpretation Code Description Data Dipika rce(s) Supporting Document(s) Nursing [facility] es DALOYk0cUjAYTvZn03/IHFxmGFVwz0AaZUqyQRo1ENwrDVReL7KcCNN9rO6vLSX2JVuIVyGiBzRyDOC4 lbm [file] [id number]= ID Date Data Source [id number] 11/03/2020 09:27:50 PM EDT [facility] Name Value Range Interpretation Code Description Data Dipika rce(s) Supporting Document(s) AMPHETAMINE+METHAMPHETAMINE SCREEN (PRESENCE) IN URINE Negative (Cutoff: 1000 ng/mL) [facility] Drug of Abuse tests are screening result s only.Positive results are not confirmed by independent methodsand should be used for medical (treatment) purposes only.Unconfirmed screening results should not be used fornon-medical purposes(employment or legal testing). BENZODIAZEPINES (PRESENCE) IN URINE BY SCREEN METHOD Negative (Cutoff: 200 ng/mL) [facility] CANNABINOID (PRESENCE) IN URINE BY SCREEN METHOD Negative (Cutoff: 50 ng/mL) Abnormal (applies to non-numeric results) [facility] COCAINE (PRESENCE) IN URINE BY SCREEN METHOD Negative (Cut off: 300 ng/mL) [facility] BARBITURATES PRESENCE IN URINE BY SCREEN METHOD Negative (Cutoff: 200 ng/mL) [facility] OPIATES (PRESENCE) IN URINE BY SCREEN METHOD Negative (Cut off: 300 ng/mL) [facility] Please note that the Opiate assay does n ot detect Oxycodone and Metabolites. CREATININE IN URINE FOR UDS >30.0 [facility] ID Date Data Source [id number] 11/03/2020 03:06:27 PM EDT [facility] Name Value Range Interpretation Code Description Data Dipika rce(s) Supporting Document(s) COLOR OF URINE Yellow, Light Yellow, Straw, Clear, Colorle ss, Dark Yellow [facility] CLARITY OF URINE Clear [facility] PH OF URINE 5.0, 5.5, 6.0, 6.5, 7.0, 7.5 Abn ormal (applies to non-numeric results) [facility] LEUKOCYTE ESTERASE PRESENCE IN URINE BY TEST STRIP Negativ e, Trace [facility] NITRITE PRESENCE IN URINE Negative [facility] PROTEIN IN URINE BY TEST STRIP Negative, Trace A bnormal (applies to non- numeric results) [facility] GLUCOSE IN URINE Normal [facility] BILIRUBIN, PRESENCE IN URINE Negative [facility] SPECIFIC GRAVITY OF URINE 1.005-1.030 [facility] KETONES (MG/DL) IN URINE Negative, Trace [facility] UROBILINOGEN (MG/DL) IN URINE Normal [facility] HEMOGLOBIN PRESENCE IN URINE Negative [facility] ID Date Data Source [id number] 11/03/2020 03:35:45 PM EDT [facility] Name Value Range Interpretation Code Description Data Dipika rce(s) Supporting Document(s) RBC (#/HPF) IN URINE SEDIMENT 0-2 [facility] WBC (LEUKOCYTE) (#/HPF) IN URINE SEDIMENT 0-2 [facility] SQUAMOUS EPITHELIAL CELLS IN URINE SEDIMENT [facility] BACTERIA (#/HPF) IN URINE Few, None Seen [facility] ID Date Data Source [id number] 11/03/2020 04:09:53 PM EDT [facility] Name Value Range Interpretation Code Description Data Dipika rce(s) Supporting Document(s) SARS-COV-2 BY NAAT Negative, Indeterminate [facility] NUCLEIC ACID SEQUENCES OF THE 2019 NOVEL CORONAVIRUSWERE NOT DETECTED BY PCR.NOTE: THIS TEST WAS DEVELOPED FOR THE PURPOSE OFDIAGNOSTIC TESTING TO ALLOW FOR RAPID RESPONSEDURING A DECLARED PUBLIC HEALTH EMERGENCY AND HASEUA CLEARANCE FROM THE FDA. NEGATIVE RESULTS DO NOTPRECLUDE 2019_nCoV INFECTION AND SHOULD NOT BEUSED THE SOLE BASIS FOR PATIENT MANAGEMENT DECISIONS. ID Date Data Source [id number] 11/03/2020 01:36:00 PM EDT [facility] Name Value Range Interpretation Code Description Data Dipika rce(s) Supporting Document(s) SARS-CoV-2 RNA Resp Ql ADRIANNE+probe Negative [facility] This lab was ordered by [facility] and reported by [facility]. ID Date Data Source [id number] 11/03/2020 02:05:45 PM EDT [facility] Name Value Range Interpretation Code Description Data Dipika rce(s) Supporting Document(s) MAGNESIUM (MG/DL) IN SER/PLAS 1.6-2.4 [facility] ID Date Data Source [id number] 11/03/2020 02:05:45 PM EDT [facility] Name Value Range Interpretation Code Description Data Dipika rce(s) Supporting Document(s) SODIUM (MMOL/L) IN SER/PLAS 135-146 [facility] POTASSIUM (MMOL/L) IN SER/PLAS 3.5-5.3 [facility] CHLORIDE (MMOL/L) IN SER/PLAS 98-107 [facility] CARBON DIOXIDE, TOTAL (MMOL/L) IN SER/PLAS 21-32 [facility] ANION GAP IN SER/PLAS 5-15 [facility] UREA NITROGEN (MG/DL) IN SER/PLAS 7-23 [facility] CREATININE (MG/DL) IN SER/PLAS 0.7-1.3 [facility] UREA NITROGEN/CREATININE (MASS RATIO) IN SER/PLAS [facility] GLUCOSE (MG/DL) IN SER/PLAS 65-99 Above high normal [facility] CALCIUM (MG/DL) IN SER/PLAS 8.4-10.4 [facility] ASPARTATE AMINOTRANSFERASE (SGOT) (U/L) IN SER/PLAS <59 Above high normal [facility] ALANINE AMINOTRANSFERASE (SGPT) (U/L) IN SER/PLAS <50 Above high normal [facility] ALKALINE PHOSPHATASE (U/L) IN SER/PLAS 38-126 [facility] PROTEIN (G/DL) IN SER/PLAS 6.3-8.2 [facility] ALBUMIN (G/DL) IN SER/PLAS 3.5-5.0 [facility] ALBUMIN/GLOBULIN (G/G RATIO) IN SER/PLAS [facility] BILIRUBIN TOTAL (MG/DL) IN SER/PLAS 0.1-1.3 [facility] GLOMERULAR FILTRATION RATE ML/MIN/1.73 SQ M.PREDICTED >60 [facility] ID Date Data Source [id number] 11/03/2020 02:05:45 PM EDT [facility] Name Value Range Interpretation Code Description Data Dipika rce(s) Supporting Document(s) ETHANOL (G/DL) IN SER/PLAS <0.01 [facility] [facility] This test is for medical use only ID Date Data Source [id number] 11/03/2020 09:00:45 PM EDT [facility] Name Value Range Interpretation Code Description Data Dipika rce(s) Supporting Document(s) PHOSPHATE (MG/DL) IN SER/PLAS 2.5-4.5 [facility] ID Date Data Source [id number] 11/03/2020 01:49:21 PM EDT [facility] Name Value Range Interpretation Code Description Data Dipika rce(s) Supporting Document(s) LEUKOCYTES(10*3/UL) IN BLOOD BY AUTOMATED COUNT 4.0-10.5 [facility] ERYTHROCYTES (10*6/UL) IN BLOOD BY AUTOMATED COUNT 4.00-5. 80 [facility] HEMOGLOBIN (G/DL) IN BLOOD 13.0-18.0 [facility] HEMATOCRIT (%) IN BLOOD BY AUTOMATED COUNT 37.0-50.0 [facility] ERYTHROCYTE MEAN CORPUSCULAR VOLUME (FL) BY AUTOMATED COUNT 77.0-100.0 [facility] ERYTHROCYTE MEAN CORPUSCULAR HEMOGLOBIN (PG) BY AUTOMATED COUNT 26.0-33.0 [facility] ERYTHROCYTE MEAN CORPUSCULAR HEMOGLOBIN CONCENTRATION (G/DL) BY AUTOMATED 31.0-36.0 [facility] ERYTHROCYTE DISTRIBUTION WIDTH (RATIO) BY AUTOMATED COUNT 12.0-17.0 [facility] PLATELET MEAN VOLUME (FL) IN BLOOD BY AUTOMATED COUNT 8.0- 12.0 [facility] NEUTROPHILS/100 LEUKOCYTES IN BLOOD BY AUTOMATED COUNT 35.0-78.0 Above high normal [facility] LYMPHOCYTES/100 LEUKOCYTES IN BLOOD BY AUTOMATED COUNT 20.0-42.0 Below low normal [facility] MONOCYTES/100 LEUKOCYTES IN BLOOD BY AUTOMATED COUNT 0.0-1 5.0 [facility] EOSINOPHILS/100 LEUKOCYTES IN BLOOD BY AUTOMATED COUNT <=1 0.0 [facility] BASOPHILS/100 LEUKOCYTES IN BLOOD BY AUTOMATED COUNT <=2.0 [facility] NEUTROPHILS (10*3/UL) IN BLOOD BY AUTOMATED COUNT 1.40-8.4 0 [facility] LYMPHOCYTES (10*3/UL) IN BLOOD BY AUTOMATED COUNT 1.00 -4.00 Below low normal [facility] MONOCYTES (10*3/UL) IN BLOOD BY AUTOMATED COUNT 0.00-1.50 [facility] EOSINOPHILS (10*3/UL) IN BLOOD BY AUTOMATED COUNT <=0.70 [facility] BASOPHILS (10*3/UL) IN BLOOD BY AUTOMATED COUNT <=0.10 [facility] PLATELETS (10*3/UL) IN BLOOD AUTOMATED COUNT 125-425 [facility] IMMATURE NEUTROPHILS/100 LEUKOCYTES IN BLOOD BY AUTOMATED COUNT <=0.5 [facility] IMMATURE NEUTROPHILS (10*3/UL) IN BLOOD BY AUTOMATED COUNT <=0.40 [facility] ID Date Data Source [id number] 11/03/2020 01:43:04 PM EDT [facility] Name Value Range Interpretation Code Description Data Dipika rce(s) Supporting Document(s) PROTHROMBIN TIME (PT) IN PPP BY COAGULATION ASSAY 9.0-13.0 [facility] LESS INTENSE THERAPEUTIC RANGE: 2.00 TO 3.00MORE INTENSE THERAPEUTIC RANGE: 2.50 TO 3.50THERAPEUTIC RANGE FOR MECHANICAL HEART VALVE: 2.50 TO 3.50Note: The INR is intended to be used only for patients on coumadin type anticoagulants at stable dosing levels INR IN PPP BY COAGULATION ASSAY 0.76-1.09 [facility] ID Date Data Source [id number] 11/03/2020 01:43:04 PM EDT [facility] Name Value Range Interpretation Code Description Data Dipika rce(s) Supporting Document(s) ACTIVATED PARTIAL THROMBOPLASTIN TIME IN PPP BY COAGULATION ASSAY 22-37 [facility] aPTT THERAPEUTIC RANGE FOR UNFRACTIONATE D HEPARIN IS 61-100 seconds.aPTT Therapeutic range for unfractionated heparin in Acute Coronary Syndrome-AL patients is 50-70 seconds. ID Date Data Source [id number] 11/03/2020 11:15:04 AM EDT [facility] Name Value Range Interpretation Code Description Data Dipika rce(s) Supporting Document(s) ED Triage No [facility] s [id number] [file] [id number] ID Date Data Source [id number] 01/14/2020 05:04:43 PM [facility] Imaging XRAY FXPatient: BLAKE WALKER : [birth year] PACS System: NewsWhipProcedure: MRI LUMBAR SPINE WO CONTRAST Provider: SHANEKA GODOY of the lumbar spine without contrastCLINICAL HISTORY: Scoliosis, back pain, right arm numbness. Initial encounter.TECHNIQUE: Multiplanar multisequence MRI of the lumbar spine was performedwithout contrast.COMPARISON: X-rays performed December 04, 2019.FINDINGS:Lumbar vertebral body height is maintained from L1 through L5. Marrow signal ishomogeneous.No focal or diffuse disc protrusions are demonstrat ed. No significant spinal orforaminal stenosis is noted.Visualized portions of the SI joints are congruent.Paraspinal soft tissues appear unremarkable.The conus terminates normally at the T12-L1 level.IMPRESSION: UNREMARKABLE MRI OF THE LUMBAR SPINE.Report edited for Shahzad Díaz MD 01/14/2020 3:16 PM Electronically Signed by Shahzad Díaz MD 01/14/2020 5:04 PM Name Value Range Interpretation Code Description Data Dipika rce(s) Supporting Document(s) ID Date Data Source [id number] 01/14/2020 01:41:20 PM [facility] Imaging XRAY FXPatient: BLAKE WALKER : [birth year] PACS System: NewsWhipProcedure: MRI THORACIC SPINE WO CONTRAST Provider: SHANEKA GODOY of the thoracic spine without contrastCLINICAL HISTORY: Scoliosis and degenerative change with back pain and right armnumbness. Initial encounter.TECHNIQUE: Multiplanar multisequence MRI of the thoracic spine was performedwithout contrast.COMPARISON: X-rays performed December 04, 2019.FINDINGS:Vertebral body height is maintained from T1 through T12. There is scoliosis ofthe upper thoracic spine convex to the left. The lower curve of the thoracicspine is convex to the right.There are mild disc protrusions at T1-T2 and T2-T3 as well as T3-T4 withoutspinal or foraminal stenosis. Remaining thoracic levels demonstrate relativelynormal height and hydration. No spinal or foraminal stenosis is noted at theselevels.Vertebral body height is maintained. Marrow signal is homogeneous.Thoracic spinal cord demonstrates normal signal.Paraspinal soft tissues appear unremarkable.IMPRESSION: 1. Scoliosis of the thoracic spine with the upper curve convex to the left.2. Degenerative change of the upper thoracic levels at T1-T2, T2-T3, and T3-K3itajaza spinal or foraminal stenosis.3. Normal appearance of the thoracic spinal cord.Report edited for Shahzad Díaz MD 01/14/2020 12:22 PM Electronically Signed by Shahzad Díaz MD 01/14/2020 1:41 PM Name Value Range Interpretation Code Description Data Dipika rce(s) Supporting Document(s) ID Date Data Source [id number] 01/14/2020 01:41:13 PM [facility] XRAY FXPatient: BLAKE WALKER : [birth year] PACS [facility] [employer] [facility] WO CONTRAST Provider: SHANEKA GODOY of the cervical spine without contrastCLINICAL HISTORY: Neck pain with right arm numbness. Initial encounter.TECHNIQUE: Multiplanar multisequence MRI of the cervical spine was performedwithout contrast.COMPARISON: X-rays performed August 07, 2018.FINDINGS:Cervical vertebral body height is maintained from C1 through C7. There isreversal of the cervical lordosis with diffuse moderate degenerative disc andfacet disease noted.Craniocervical junction appears intact. Atlantodens interval is congruent.Proliferative changes with Modic type II endplate changes are noted at theC3-C4, C4-C5, C5-C6 and C6-C7 levels.The C2-C3 disc level appears unremarkable.At C3-C4 there is disco-osteophytic protrusion with uncovertebral joint spurringand facet disease producing mild spinal stenosis and moderate bilateral neuralforaminal stenosis.At the C4-C5 disc level there is disco-osteophytic protrusion with uncovertebraljoint spurring and facet disease producing mild spinal stenosis with moderatebilateral neural foraminal stenosis.At the C5-C6 disc level there is disco-osteophytic protrusion with uncovertebraljoint spurring and facet disease producing moderate spinal stenosis and moderatebilateral neural foraminal stenosis.At the C6-C7 disc level there is disco-osteophytic protrusion with uncovertebraljoint spurring and facet disease producing mild spinal stenosis with moderatebilateral neural foraminal stenosis slightly greater on the right.At the C7-T1 disc level there is disco- osteophytic protrusion with uncovertebraljoint spurring and facet disease without spinal stenosis but with moderatebilateral neural foraminal stenosis. There is Modic type I endplate changeswith inflammatory edema adjacent to the posterior aspect of the disc.The cervical cord demonstrates normal signal.Visualized posterior fossa structures and paraspinal soft tissues appearunremarkable.IMPRESSION: 1. Moderate degenerative changes with reversal of the cervical lordosis.2. Multilevel spinal and foraminal stenosis.3. Multilevel Modic type II endplate changes appearing chronic withinflammatory acute Modic type I endplate changes adjacent to the C7-T1 disclevel.Report edited for Shahzad Díaz MD 01/14/2020 12:15 PM Electronically Signed by Shahzad Díaz MD 01/14/2020 1:41 PM Name Value Range Interpretation Code Description Data Dipika rce(s) Supporting Document(s) ID Date Data Source [id number] 12/04/2019 11:20:27 AM EDT [facility] Patient: BLAKE WALKER : 1975 M RN: [phone] PACS System: [employer] [facility] iRewardChartProcedure: XR SCOLIOSIS 1 VIEW Provider: SHANEKA ANNA STUDYCLINICAL HISTORY: Scoliosis study. Scoliosis study was requested in this adultpatient.History provided is recheck of scoliosis.Current exam is read without any prior studies available.If any outside or prior exams could be retrieved these would be helpful.There is a scoliosis levoconvex in the lower cervical and upper thoracic regionat least 20 degrees, dextroconvex in the thoracic region at least 20 degrees.No gross vertebral body anomaly is identified.Lungs are grossly clear. Bowel gas pattern is nonspecific. There isdegenerative change affecting the spine and hips.IMPRESSION: MARKED SCOLIOSIS, DETAILED ABOVE WITH SOME DEGENERATIVE CHANGE INTHE SPINE AND HIPS.NO ACUTE FRACTURE OR GROSS VERTEBRAL BODY ANOMALY IDENTIFIED IN THIS ADULTPATIENT.IF THERE ARE WORRISOME SYMPTOMS CONSIDER FOLLOW- UP CT OR MRI CLINICALLYAPPROPRIATE.Report edited for Shelia Sutton MD 12/04/2019 11:13 AM Electronically Signed by Shelia Sutton MD 12/04/2019 11:20 AM Name Value Range Interpretation Code Description Data Dipika rce(s) Supporting Document(s) Procedure Social History Code Duration Value Status Description Data Source(s ) Smoking 01/05/2021 12:00:00 AM EST Current every day smoker co mpleted Current every day smoker [facility] ([facility]) 12/29/2020 12:00:00 AM EST Cigarette smoker completed Cig arette smoker [facility] ([facility]) Tobacco smoking status NHIS 11/03/2020 12:00:00 AM EDT Current e very day smoker [facility] Cigarettes smoked current (pack per day) - Reported 11/04/19 12:00:00 AM EDT UNK [facility] Alcohol intake 11/03/2020 12:00:00 AM EDT Not Asked [facility] 12/27/2019 12:00:00 AM EST Current Smoker completed Curre nt Smoker [facility] ([facility]) Smoking 12/17/2019 12:00:00 AM EST Current Smoker completed Curre nt Smoker eCW1 ([facility]) Smoking 12/17/2019 12:00:00 AM EST Current Smoker completed Curre nt Smoker eCW1 ([facility]) Vital Signs ID Date Data Source UNK Name Value Range Interpretation Code Description Data Source(s) Body height 175.26 cm 175.26 cm [facility] ([facility]) Body weight 71.486 kg 71.486 kg [facility] ([facility]) Systolic blood pressure 138 mm[Hg] 138 mm[Hg] N extGen ([facility]) Diastolic blood pressure 82 mm[Hg] 82 mm[Hg] [facility] ([facility]) Body mass index (BMI) [Ratio] 23.27 kg/m2 23.27 kg/m2 [facility] ([facility]) Body height 69 [in_i] 69 [in_i] MEDENT ([facility]) 5'9" Body weight 164.00 [lb_av] 164.00 [lb_av] MEDEN T ([facility]) Body mass index (BMI) [Ratio] 24.2 kg/m2 24.2 k g/m2 [facility] Body mass index (BMI) [Ratio] 24.2 kg/m2 24.2 k g/m2 [facility] ([facility]) Body height 69 [in_i] 69 [in_i] [facility] ([facility] 5'9" Body weight 164.00 [lb_av] 164.00 [lb_av] MEDEN T ([facility]) Respiratory rate 18 /min 18 /min MEDENT ( [facility]) Body height 68.5 [in_i] 68.5 [in_i] eCW1 ([facility]placed [facility]) Body weight 164 [lb_av] 164 [lb_av] eCW1 (Replaced by [facility]) Body mass index (BMI) [Ratio] 24.57 kg/m2 24.57 kg/m2 eCW1 ([facility]) Body temperature 99.1 [degF] 99.1 [degF] eCW1 ( [facility]) Heart rate 82 /min 82 /min eCW1 ([facility]) Respiratory rate 18 /min 18 /min eCW1 ([facility]) Oxygen saturation in Arterial blood by Pulse oximetry 96 % 96 % eCW1 ([facility]) Systolic blood pressure 122 mm[Hg] 122 mm[Hg] e CW1 ([facility]) Diastolic blood pressure 74 mm[Hg] 74 mm[Hg] eCW1 ([facility]) ID Date Data Source [id number] 11/11/2020 02:42:17 PM EDT [facility] Name Value Range Interpretation Code Description Data Source(s) WEIGHT 156.97 lb 156.97 lb [facility] HEIGHT 69 in 69 in [facility] WEIGHT 160 lb 160 lb [facility] HEIGHT 69 in 69 in [facility] Patient Treatment Plan of Care Planned Activity Planned Date Details Description Data Source (s) Doxycycline Monohydrate 100 MG Oral Tablet 12/29[facility]00[facility] [facility]
--- OUTSIDE RECORDS SUMMARY | 2021-01-20 00:24 | CCD | Summary of Care ---
Author Author [facility] Organization [facility] Address Unknown Phone Unavailable Care Team Providers Care Corrective Therapist Name Role Phone Abelardo Thompson MD PP Georgette Villela RN [phone] Unavailabl e Encounter Details Care Team Description Date Type Department Georgette Villela, artist scientific Management 11/05/[address] [facility] [address] [place] [address] Allergies Comments Active Allergy Reactions Severity Noted [...] / COVID-19? 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 Explanation Type Date Recorded Power of Rn Gastroenterology [id number] Advance Directives 11/04/2020 7:12 AM and Living Will Advance Directives 10/21/2019 3:10 PM and Living Will Date Inactivated Comments Code Status Date Activated 11/04/2020 3:54 PM Full Code 11/03/2020 4:17 PM Care Teams Start Date End Date Corrective Therapist Relationship Specialty 09/22/19 Abelardo Thompson MD [facility] - [facility] [address] [place] [address] 11/05/20 11/05/20 Georgette Villela Construction Trades TeacherFinancial Supervisor M, RN Care Coordination documented as of this encounter
--- OUTSIDE RECORDS SUMMARY | 2021-01-20 00:24 | CCD | Continuity of Care Document ---
Author Author [facility] Organization [facility] Address Unknown Phone Unavailable Care Team Providers Care Manager Skilled Name Role Phone Nery Riggs MD Unavailable Unavailable Allergies, Adverse Reactions, Alerts Substance Reaction Status Criticality banana Active No Information Medications Medication Instructions Dosage Effective Dates (start - stop) Sta tus Comments doxycycline monohydrate 100 mg tablet 1 tab po bid x 7 days (#14 ) - No Longer Active Problems Condition Effective Dates (start - stop) Clinical Status C omments Human immunodeficiency virus [HIV] counseling Encntr screen for infections w sexl mode of transmiss Contact w and exposure to infect w a sexl mode of transmiss Other sex counseling Encounter for oth general cnsl and advice on contraception Procedures Procedure Date No Information Results Test Name Date and Time Measure Units Reference Range Abnormal Flag St atus Comments No Information Advance Directives Directive Yes / No Effective Date File Name No Information Encounters Encounter Description Practice Location Reason(s) For Visit Diagnose s Date Provider Providers Copied on Encounter [facility], [address] [place] [address], [id number], tel:[phone] [facility] [place] No Information W colton Gabriel. [address] [place] [address], [id number], . tel:[phone] [facility], [address] [place] [address], [id number], tel:[phone] [facility] [place] Human immunodeficie ncy virus [HIV] counselingEncntr screen for infections w sexl mode of transmissContact w and exposure to infect w a sexl mode of transmissOther sex counselingEncounter for oth general cnsl and advice on contraception Flaca swanson. [address] [place] [address], [id number], [place]. tel:[phone] Referring Provider: Seema Thayer, [address], [place], [id number]. tel:[phone] Family History Family Member Diagnosis Age At Onset No Information Immunizations Vaccine Date Status Comments No Information Payers Payer name Insurance type Covered democrat ID Authorization(s ) No Information Social History Type Description Quantity Date Captured Comments Alcohol Use Details Unknown Caffeine Use Details Unknown Tobacco Use Status Smoking Status Current every day smoker Sex Male Vital Signs Date / Time: Height Weight BMI Pulse Rate Blood Pressure Temperatu re Respiratory Rate Body Surface Area Head Circumference BMI percentile Pulse Ox In haled Ox No Information Chief Complaint And Reason For Visit No Information Reason For Referral Reason For Referral No [...] on No Information Assessments Type Assessment Date No Information Goals Health Concern Goal Type Priority Status Date No Information Medical Equipment Description Device [place] Device Identifier Effective Fabian es (start - stop) Status No Information Mental Status Date Cognitive Assessment No Information Health Concerns Observation Date No Information Concern Status Date No Information Physical Examination Exam Findings Details No Information
[2021-01-20 01:37] LABS: ALT/SGPT 136 U/L (12-78); BILIRUBIN,TOTAL 0.5 MG/DL (0.2-1.0); BLOOD UREA NITROGEN 7 MG/DL (7-18); CALCIUM LEVEL 9.4 MG/DL (8.5-10.1); CARBON DIOXIDE LEVEL 27 MEQ/L (21-32); CHLORIDE LEVEL 103 MEQ/L (98-107); CREATININE FOR GFR 0.83 MG/DL (0.70-1.30); GLOMERULAR FILTRATION RATE > 60.0 (>60); GLUCOSE, FASTING 100 MG/DL (70-100); MAGNESIUM LEVEL 2.2 MG/DL (1.8-2.4); POTASSIUM SERUM 3.9 MEQ/L (3.5-5.1); SODIUM LEVEL 138 MEQ/L (136-145); TOTAL PROTEIN 8.2 GM/DL (6.4-8.2)
[2021-01-20 01:39] LABS: CK-MB VALUE MASS 5.2 NG/ML (<3.6); MB/CK RELATIVE INDEX 0.84 (< OR =4)
[2021-01-20 01:45] LABS: BASO # 0.1 10^3/uL (0.0-0.2); BASO % 0.7 % (0.0-1.0); EOS # 0.1 10^3/uL (0.0-0.5); EOS % 0.8 % (0.0-3.0); HEMATOCRIT 43.4 % (42.0-52.0); HEMOGLOBIN 15.4 g/dl (13.5-17.5); LYMPH # 2.2 10^3/uL (1.5-5.0); LYMPH % 29.8 % (24.0-44.0); MEAN CORPUSCULAR HGB CONC 35.5 g/dl (32.0-36.5); MEAN CORPUSCULAR VOLUME 87.3 fl (80.0-96.0); MONO # 0.6 10^3/uL (0.0-0.8); MONO % 7.8 % (2.0-8.0); NEUTROPHILS # 4.4 10^3/uL (1.5-8.5); NEUTROPHILS % 60.5 % (36.0-66.0); PLATELET COUNT, AUTOMATED 196 10^3/uL (150-450); RED BLOOD COUNT 4.97 10^6/uL (4.30-6.10); WHITE BLOOD COUNT 7.3 10^3/uL (4.0-10.0)
[2021-01-20 01:49] LABS: RSV AMPLIFICATION NEGATIVE (NEGATIVE)
--- OUTSIDE RECORDS SUMMARY | 2021-01-20 02:22 | CCD ---
Author Author [facility] Organization [facility] Address Unknown Phone Unavailable Care Team Providers Care Line Rider Name Role Phone Dalton Thayer Unavailable Unavailable Dalton Thayer Unavailable Unavailable Dalton Thayer Unavailable Unavailable Dalton Thayer Unavailable Unavailable Dalton Thayer Unavailable Unavailable Dalton Thayer Unavailable Unavailable Earlimart, J Seema PA Unavailable Unavailable Dalton Thayer PA Unavailable Unavailable Dalton Thayer PA Unavailable Unavailable EarlimartDalton PA Unavailable Unavailable Dalton Thayer PA Unavailable Unavailable Dalton Thayer PA Unavailable Unavailable Dalton Thayer PA Unavailable Unavailable Earlimart J Seema PA Unavailable Unavailable Earlimart, J Seema PA Unavailable Unavailable Earlimart, J Seema PA Unavailable Unavailable Earlimart, J Seema PA Unavailable Unavailable Dalton Thayer PA Unavailable Unavailable Dalton Thayer PA Unavailable Unavailable Dalton Thayer PA Unavailable Unavailable Flaca, Dalton Stephenson PA Unavailable Unavailable Flaca, Dalton Stephenson PA Unavailable Unavailable MD Annita rCuz MD Unavailable Anthony AUGUSTINE MD Annita Unavailable [...] Oneil, Marcin Gabriel MD Unavailable Unavailable Oneil, Marcni Gabriel MD Unavailable Unavailable Oneil, Marcin Gabriel [...] Aziz DO Unavailable Unavailab le Qandah, Basem Dinoicio Aziz DO Unavailable Unavailab le Qandah, Basem [...] by Article 27-F of the [facility] Public Health law. If you continue you may have access to information: Regarding HIV / AIDS; Provided by facilities licensed or operated by the [facility] Office of Mental Health; or Provided by the [facility] Office for People With Developmental Disabilities. If such information is present, then the following [facility] mandated warning applies: This information has been [...] law may result in a fine or usp sentence or both. A general authorization for the release of medical or other information is NOT sufficient authorization for further disc losure. Allergies and Adverse Reactions Type Description Substance Reaction Status Data Source(s ) Propensity to adverse reactions banana extract Banana Extract Active [facility] ([facility]) Propensity to adverse reactions ALLERGIES NOT ON FILE ALLERGIES NOT O N FILE [facility] Propensity to adverse reactions NO KNOWN ALLERGIES NO KNOWN ALLERGIES [facility] Propensity to adverse reactions NO KNOWN ALLERGIES NO KNOWN ALLERGIES [facility] Family History Family Member Name Family Member Gender Family Member Status Date o f Status Description Data Source(s) Unknown Female Diagnosis 02/13/2010 12:00:00 AM EST Next[facility] ([facility]) Unknown Female Diagnosis 02/13/2010 12:00:00 AM EST [facility] ([facility]) Encounters Encounter Providers Location Date Indications Data Source(s ) Attender: Nery Riggs MD [facility] [place] 08:31:00 AM EST - 01/05/2021 08:31:00 AM EST [facility] ([facility]) OFFICE/OUTPATIENT VISIT, [facility] Attender: Seema PARSONS [facility] 12/29/2020 11:15:00 AM EST - 12/29/2020 11:15:00 AM ES T Encounter for oth general cnsl and advice on contraceptionOther sex counselingContact w and exposure to infect w a sexl mode of transmissEncntr screen for infections w sexl mode of transmissHuman immunodeficiency virus [HIV] counseling NextGen ([facility]) Encounter for oth general cnsl and advic e on contraception Other sex counseling Contact w and exposure to infect w a sex l mode of transmiss Encntr screen for infections w sexl mode of transmiss Human immunodeficiency virus [HIV] couns eli Observation Attender: EDILIA POND MDAttender: MD Annita steven MD 11/03/2020 12:22:00 PM EDT - 11/04/2020 01:30:00 PM EDT Alcohol Problem [facility] Alcohol Problem Patient discharged. Office Visit Attender: Goran Christianson MS, PAC [place] Office 10:15:00 AM EST [facility] ([facility]) Outpatient Attender: Shaneka Garayerrer: Shaneka nevarez [facility] 01/14/2020 10:12:05 AM EST - 01/14/2020 11:59:00 [...] EST [facility] ([facility]) Unknown [address] [place] [address] 12/25/2019 12:00:00 AM EST eCW1 ([facility]) Outpatient [address] [place] [address] 12/17/2019 12:00:00 AM EST eCW1 ([facility]) Outpatient Attender: Shaneka Garayerrer: Shaneka nevarez 5F-DI 12/04/2019 10:17:06 AM EDT - 12/04/2019 11:59:00 PM EDT [facility] Patient discharged. 5F-DI 12/04/2019 10:09:31 AM EDT [facility] Attender: Shaneka Cuellar 5F-FLCS 12/04/2019 10:08:30 A M EDT [facility] Attender: Shaneka Cuellar 5F-FLCS 12/04/2019 10:05:25 A M EDT [facility] Outpatient Attender: Shaneka Garayerrer: Shaneka nevarez 5F-DI 12/04/2019 09:31:11 AM EDT - 12/04/2019 10:16:00 AM EDT [facility] Patient discharged. Attender: Shaneka Cuellar 5F-FLCS 11/30/2019 04:55:21 P M EDT [facility] Unknown [address] [place] [address] 11/22/2019 12:00:00 AM EDT eCW1 ([facility]) Medications Medication Brand Name Start Date Product Form Dose Route Admi nistrative Instructions Pharmacy Instructions Status Indications Reaction Description Data Source(s) Doxycycline Monohydrate 100 MG Oral Tabl et doxycycline monohydrate 100 mg tablet doxycycline monohydrate 100 mg tablet 12/29/2020 12:00:00 AM EST completed 1 tab po bid x 7 days (#14) Next Gen ([facility]) Insurance Providers Payer name Policy type / Coverage type Policy ID Covered republican ID Covered republican's relationship to sepulveda Policy Sepulveda Plan Information MEDICAID [id number] Patient [id number] CORRECTIONAL FACILITIES [id number] Patient is Insur ed [id number] [place] [id number] A [id number] CORRECTIONS B [id number] Self [id number] BLUE CHOICE/BLUE CHOICE OPTIO Medicaid [id number] [place] [id number] Self [id number] [place]ID [place] [id number] Self [id number] [place]ID [place] [id number] Self [id number] MEDICAID [place] [id number] Self [id number] MEDICAID [place] [id number] [id number] [place] EXCELL[place] [id number] Self [id number] [place] EXCELL[place] [id number] Self [id number] [place] EXCELLUS [place] [id number] xxxxxxxxxxxx [id number] EXCELLUS MEDICAID REPLACEMENT Excellus [id number] self [id number] [place]ICAID [place] [id number] Self [id number] Medicaid [id number] Self [id number] Excellus [id number] self [id number] Medicaid [id number] Self [id number] BCBS DONNY HMO [id number] SP [id number] [place] PPO [id number] SP [id number] "" Excellus [id number] Self [id number] Medicaid [id number] Self [id number] [place]BS [place] PPO [id number] SP [id number] Excell [id number] Self [id number] Problems, Conditions, and Diagnoses Code Display Name Description Problem Type Effective Dates Data Source(s) F10.230 Alcohol dependence with withdrawal, unco mplicated Alcohol dependence with withdrawal, uncomplicated Diagnosis 11/03/2020 12:22:00 PM EDT [facility] Alcohol Problem Alcohol Problem Diagnosis 11/03/2020 12:2 2:00 PM EDT [facility] from [facility] etoh withdrawal from [facility] etoh withdrawal Di agnosis 11/03/2020 10:56:00 AM EDT [facility] M41.9 Scoliosis, unspecified Scoliosis, unspecified Diagnosi s 01/14/2020 10:11:39 AM EST [facility] M41.9 Scoliosis, unspecified Scoliosis, unspecified Diagnosi s 12/04/2019 10:17:06 AM EDT [facility] M41.9 [id number] Scoliosis of cervicothoracic spi ne, unspecified scoliosis type Problem 12/17/2019 12:00:00 AM EST eCW1 ([facility]) Surgeries/Procedures Procedure Description Date Indications Data Source(s) CVR Data Input Clerk.Svc. STI / H 12/29/2020 12:00:00 AM EST - 12/29/2020 12:00:00 AM EST [facility] ([facility]) CVR Data Input Clerk.Svc. Other 12/29/2020 12:00:00 AM EST - 2020 12:00:00 AM EST [facility] ([facility]) CVR Data Input Clerk.Svc. Contraceptive 12/29/2020 12 :00:00 AM EST - 12/29/2020 12:00:00 AM EST [facility] ([facility]) CVR Med.Svc. Height/Weight 12/29/2020 12 :00:00 AM EST - 12/29/2020 12:00:00 AM EST [facility] ([facility]) CVR Blood Pressure 12/29/2020 12:00:00 AM EST - 2020 12:00:00 AM EST [facility] ([facility]) HCS Without Test 12/29/2020 12:00:00 AM EST - 12/30/19 12:00:00 AM EST [facility] ([facility]) N.GONORRHOEAE, PHARYNGEAL 12/29/2020 12: 00:00 AM EST - 12/29/2020 12:00:00 AM EST [facility] ([facility]) CHYLMD TRACH, PHARYNGEAL 12/29/2020 12:0 0:00 AM EST - 12/29/2020 12:00:00 AM EST [facility] ([facility]) N.GONORRHOEAE, URINE 12/29/2020 12:00:00 AM EST - 12/29/2020 12:00:00 AM EST [facility] ([facility]) CHYLMD TRACH, URINE 12/29/2020 12:00:00 AM EST - 12/29 12:00:00 AM EST [facility] ([facility]) OFFICE/OUTPATIENT VISIT, [facility] 12/29/2020 12:00:00 AM EST - 12/29/2020 12:00:00 AM EST [facility] ([facility]) CONTRAINDICATION TO SAUL/ARB CONTRAINDICATION TO SAUL/ARB 10/09 12:40:57 PM EDT [facility] DISCHARGE PATIENT DISCHARGE PATIENT 11/04/2020 12:40:57 PM EDT [facility] IV TO SALINE LOCK IV TO SALINE LOCK 11/04/2020 12:40:57 PM EDT [facility] FOLLOW UP PRIMARY PHYSICIAN FOLLOW UP PRIMARY PHYSICIAN 10/09 12:40:52 PM EDT [facility] DISCHARGE ACTIVITY DISCHARGE ACTIVITY 11/04/2020 12:40:52 PM EDT [facility] ADULT DISCHARGE DIET ADULT DISCHARGE DIET 11/04/2020 12:40:52 PM ED T [facility] NOTIFY PROVIDER (COMMUNICATION) NOTIFY PROVIDER (COMMUNICATI ON) 11/04/2020 12:40:52 PM EDT [facility] IP CONSULT TO NUTRITION SERVICES IP CONSULT TO NUTRITION SER VICES 11/04/2020 08:00:29 AM EDT [facility] BASIC METABOLIC PANEL BASIC METABOLIC PANEL 11/04/2020 04:54:00 AM EDT [facility] IP CONSULT TO HOSPITAL INTERVENTION SERVICES IP CONSUL T TO HOSPITAL INTERVENTION SERVICES 11/03/2020 04:17:08 PM EDT [facility] SALINE LOCK IV SALINE LOCK IV 11/03/2020 04:17:08 PM EDT [facility] INSERT SALINE LOCKIV INSERT SALINE LOCKIV 11/03/2020 04:17:08 PM ED T [facility] MAINTAIN IV ACCESS MAINTAIN IV ACCESS 11/03/2020 04:17:08 PM EDT [facility] PULSE OXIMETRY PULSE OXIMETRY 11/03/2020 04:17:08 PM EDT [facility] VITAL SIGNS VITAL SIGNS 11/03/2020 04:17:08 PM EDT [facility] ACTIVITY ACTIVITY 11/03/2020 04:17:08 PM EDT [facility] ADULT DIET ADULT DIET 11/03/2020 04:17:08 PM EDT [facility] FULL CODE FULL CODE 11/03/2020 04:17:08 PM EDT [facility] ALCOHOL AND OR DRUG ASSESSMENT ALCOHOL AND OR DRUG ASSESSMEN T 11/03/2020 04:17:08 PM EDT [facility] PLACE IN OBSERVATION PLACE IN OBSERVATION 11/03/2020 04:16:46 PM ED T [facility] ED TO FLOOR BED REQUEST ED TO FLOOR BED REQUEST 11/03/2020 04:08:30 PM EDT [facility] IP CONSULT TO HOSPITALIST IP CONSULT TO HOSPITALIST 11/03/2020 0 2:15:17 PM EDT [facility] DRUG SCREEN, URINE DRUG SCREEN, URINE 11/03/2020 02:01:00 PM EDT [facility] URINALYSIS MICROSCOPIC URINALYSIS MICROSCOPIC 11/03/2020 02:01:00 P M EDT [facility] URINALYSIS WITH REFLEX MICROSCOPIC URINALYSIS WITH REFLEX IN CROSCOPIC 11/03/2020 02:01:00 PM EDT [facility] EXTRA URINE EXTRA URINE 11/03/2020 02:00:00 PM EDT [facility] SARS-COV-2 BY NAAT SARS-COV-2 BY NAAT 11/03/2020 01:36:00 PM EDT [facility] COVID-19 ORDERABLE [facility] COVID-19 ORDERABLE [facility] 11/03/2020 01:36:00 P M EDT [facility] ECG 12-LEAD ECG 12-LEAD 11/03/2020 01:21:39 PM EDT [facility] PHOSPHORUS PHOSPHORUS 11/03/2020 01:17:00 PM EDT [facility] CBC AUTO DIFF CBC AUTO DIFF 11/03/2020 01:17:00 PM EDT [facility] MAGNESIUM MAGNESIUM 11/03/2020 01:17:00 PM EDT [facility] ETHANOL ETHANOL 11/03/2020 01:17:00 PM EDT [facility] APTT APTT 11/03/2020 01:17:00 PM EDT [facility] PROTIME-INR PROTIME-INR 11/03/2020 01:17:00 PM EDT [facility] COMPREHENSIVE METABOLIC PANEL COMPREHENSIVE METABOLIC PANEL 11/03/2020 01:17:00 PM EDT [facility] CBC WITH AUTO DIFFERENTIAL CBC WITH AUTO DIFFERENTIAL 2020 01:17:00 PM EDT [facility] LAVENDER TOP LAVENDER TOP 11/03/2020 01:16:00 PM EDT [facility] YELLOW TOP YELLOW TOP 11/03/2020 01:16:00 PM EDT [facility] EXTRA TUBES EXTRA TUBES 11/03/2020 01:16:00 PM EDT [facility] XR SCOLIOSIS 1 VIEW <td>XR SCOLIOSIS 1 VIEW</td> <td>Routine</td><td>12/04/2019 10:18 AM EDT</td><td> Scoliosis, unspecified</td><td> </td> 12/04/2019 02:18:15 PM EDT Scoliosis, unspecified [facility] Scoliosis, unspecified Results ID Date Data Source [id number] 12/29/2020 12:00:00 AM EST [facility] ([facility]) Name Value Range Interpretation Code Description Data Dipika rce(s) Supporting Document(s) Negative Normal (applies to non-numeric resul ts) Urine CT/GC Combo - GC [facility] ([facility]) : NoThis information has been di sclosed to you from confidential records which are protected by law. Privacy laws prohibityou from making any further disclosure of this information without the specific written consent of the person to whom itpertains, or otherwise permitted by law. Any unauthorized further disclosure in violation of the law may result in a fineor usp sentence or both. A general authorization for the release of medical or other information is not, except inlimited circumstances set forth in this part, sufficient authorization for further disclosure.This document contains private and confidential health information protected by state and federal law. If youhave received this document in error, please call the [employer] [place] ext [phone] [email or web address] Performed by: [employer]EEP ([id number]) ID Date Data Source [id number] 12/29/2020 12:00:00 AM EST [facility] ([facility]) Name Value Range Interpretation Code Description Data Dipika rce(s) Supporting Document(s) Negative Normal (applies to non-numeric resul ts) Urine CT/GC Combo - CT [facility]) ID Date Data Source [id number] 11/04/2020 05:28:29 PM EDT [facility] Name Value Range Interpretation Code Description Data Dipika rce(s) Supporting Document(s) Disch [facility]m [facility] UUJMRe6bXpEIPaDs54/DVLnnCYFsu5FtAUceBLp0KMayQMUaA1XlDKZ1pJ6eIGX0FJpMRyRxEiTiIQF7 lbm [file] 0pOUiRcykFAmxv9xreGiibMq4x+bulk mail technician+4/jG8fK/XMj93e3Y/o00Me61Pd6nw2j6uhnpdF+qTNyLYrprD [file] ICAgICAgICAgICAgICAgICAgICAgICAgICAgICAgIC AgICAgICAgICAgICAgICAgICAgICAgICAgICAgICAgICAgICAgICAgICAgICAgICAgICAgICAgICAgIC AgDQogICAgICAgICAgICAgICAgICAgICAgICAgICAgICAgICAgICAgICAgICAgICAgICAgICAgICAgIC AgICAgICAgICAgICAgICAgICAgICAgICAgICAgICAg ICAgICAgICAgICAgDQogICAgICAgICAgICAgICAgICAgICAgICAgICAgICAgICAgICAgICAgICAgICAg ICAgICAgICAgICAgICAgICAgICAgICAgICAgICAgICAgICAgICAgICAgICAgICAgICAgICAgDQogICAg ICAgICAgICAgICAgICAgICAgICAgICAgICAgICAgIC AgICAgICAgICAgICAgICAgICAgICAgICAgICAgICAgICAgICAgICAgICAgICAgICAgICAgICAgICAgIC AgICAgDQogICAgICAgICAgICAgICAgICAgICAgICAgICAgICAgICAgICAgICAgICAgICAgICAgICAgIC AgICAgICAgICAgICAgICAgICAgICAgICAgICAgICAg ICAgICAgICAgICAgICAgDQogICAgICAgICAgICAgICAgICAgICAgICAgICAgICAgICAgICAgICAgICAg ICAgICAgICAgICAgICAgICAgICAgICAgICAgICAgICAgICAgICAgICAgICAgICAgICAgICAgICAgDQog ICAgICAgICAgICAgICAgICAgICAgICAgICAgICAgIC AgICAgICAgICAgICAgICAgICAgICAgICAgICAgICAgICAgICAgICAgICAgICAgICAgICAgICAgICAgIC AgICAgICAgDQogICAgICAgICAgICAgICAgICAgICAgICAgICAgICAgICAgICAgICAgICAgICAgICAgIC AgICAgICAgICAgICAgICAgICAgICAgICAgICAgICAg ICAgICAgICAgICAgICAgICAgDQogICAgICAgICAgICAgICAgICAgICAgICAgICAgICAgICAgICAgICAg ICAgICAgICAgICAgICAgICAgICAgICAgICAgICAgICAgICAgICAgICAgICAgICAgICAgICAgICAgICAg DQogICAgICAgICAgICAgICAgICAgICAgICAgICAgIC AgICAgICAgICAgICAgICAgICAgICAgICAgICAgICAgICAgICAgICAgICAgICAgICAgICAgICAgICAgIC GxTWPzDOQuVWNmDKf5D4wqPLAlFWLnRC2xXZf6Sh3+FKhNNpRkBRI6xpYxvN5HDT3or4OrYLqmLKBgi2 FfDSr5DP6UCQBoLKrhDE6MGBesvh7NYFOeDEIszNEL z5jjUlTnIAF5YTImDznyGP9MRTWiH4pofkYrTULrVYKBAMmwZHLPKChlWSPPYVCoFSPkFoUrSxBuLTPr KSNmBYHKJEP1XFMrTgBvBGWzLXKrRM6YIENvM462hvItER6MHy0VFgBrBP7wcr7RKYWnVZHbTxlBPgz0 RDosHN5PkMDkqPA7WwCvBNZXThJhS5ajx7CsOLRfTW RKLEjsOR9Py5YxdVBjBUg+Fw4JEU9gi4YaEXu7SsCuXV8qrc6EOUyKShVfA9LspVorDPYpo8PdAEFgIT AHaQ0iKHZ7DKQ4XG0bwjuvUBBPfHXfO9clqftoXV6sRAYmHC4bOW8yVYQbMHCjPfY7YVAZXJ0CUSEiJY XpmNYcNPZkSJYSDR7OKGbzCTP5HJXavgBsuGKqQJlm JD0YRLGzqyMmLFOlXMBDMXi+Ou9ZYK9ku0BrQQo3GMOeWZ3avu2TSFiCQjEnO7N6eSUgJ2Y6BHxrWf7E TTGmQONoMPQbXKILUHwoQV1OGM8xekI4RE4EhCCpKDPcVYSzqPOzJJn3Q28qlVHnAWdvQJ3TPUX+Nahid+ Ll7CNUSmTCTbDLWqHjOgEOFFSvGtN8ZoI3YIn3ZaT2 LdGB10wOjcdxEeHGwoKP9SNB3dFXGrPOJFJT0KpZMvtN0xcoO6CxScIORKVsVwS99zuEPrWFVzXNSsPY SdNg7AKSGtA1TytxDwoZuairZiDRRlYTYWTX7TGXligaEumSVmgEanIT02jTluAB3SAv3SGsKhOP1pef 1RcYBkNd2XNTH5HP6GOQImVIIhWWWgYLX4CKPeKvFn AGlmGIInISHkRAD4DCMcSSVhXL4VNwFxIWEvSgg7BSRwGCLvMGLvwu7DPRHhOKP2GSF2JjVkYZNrZYGt FRycJDLoLTFwANV0PLPyKRMvNB2SVpCtYKMyIJJ2BLPtVXPfWHBgin5PSLJvNIYvIzT0GXHxIFZnPDPs SWmtENDuLVA9GQU6LPGeVVUnER1RVkMnEANtYTXgXd BmMTJxWAYbpk1DROPbXZPvImPhAOPbMWSqSHFdUOupTJIyXNS0OQKvFAOlIFLuEJ6WEfDkOOPdSWnoVZ pzVOOhQYYxlo9YYXWpXNDpIEYgFIDjWSNvBSYfWZpwCIRuQJYyDxM3EYRbONFnEQ1LNjFsHVAvFKA2Gq EfBCUfMRLruy8QQFLjTDNuQtQ4KJNgEPBfGNQdUMcu CPAgEMYgQWI4DINhTUEgXH8BYsUmGDPrWILlSrOwNRMlBORxmd3IJQZoNEZhAqAsSwAmEAJaLLYaWFos LGLxXUW9Ffj6QCQjYHBiNQ9EYtSbEPDpYJljVXWbJEJdVVGhsl6NVFFlJMLaMSu8HmLiJURiVMAiAMxy CMUzQEE5CGE9FUMeKMVuPD7MJcQpMCFxFBspOEZbVO XvACBtbo4VIDPaTOXsMIAzHQLwGNIfBRXvHGueCIExZTJnXICjNENvEYFvER9GCkPkZWSqAwU5GVPcID AtJUTgsw9KIGLgHDAxGGO3ADJzULBdYZSkQTxsEKSpJQToNYR1PKNfIKGuGK4DZwZbOSPaSjSoFJtdSZ DsDDKnor9JLOZsSPSzQdGrYDFiISJmPDPpQPtnVRFu TXHbXzR5BABsPUNjOB2LSaIsEMQkQyMsDNWnYHDvVGNsml9GMRHfKZJgMjWvRlCsTWBgZFHzDYqkFRLs AJD0PNK4DUCcZCXoIE5AVoLsJUYdRfG1IoNqVHQaAIVzwn0IUADgRHUmOpHvYCNlGOIlQFYmAWkiWVUw WST4HIR5XHQnDPAfUS5XPzBoCNWsMfkrTAZuJHXwQB Plfe3MQTMaKDRqXIC5FiPpQSAcWKMbJUgeRGItSWA1NMkjYANdVOOlUM9EBlKsOPPpTyj2HmMlEBDtYR Abbi1ZWZYqGWP1YLRcAgKnFHTyIRDoDVihHKQnDIJzTCg4JBYsBHKdJE4MLkZzDTYsEFD1SwXwWLAmDV Aryl4DvARlyBkrvl5OGHwVOf9YpSvzGEX9JHyrSc5o lWQ6HPDlTHDOSc0RgwEwULXyHSTHHZafEFPcEKDyZBJpTSRzEiDdQzL7GfVeKzJkVkE2IVT1EoYgSJHb YgS8XYL1X3DeElWtAHK4ZisaIaM9OsSfVpJ0ZZZpGuE5QFO+OG4yPLy+Ji9It8EzhrU9ehSiSFi1HLm1 GX7XFEIJD9XPQl== ID Date Data Source [id number] 11/04/2020 05:28:21 PM EDT [facility] Name Value Range Interpretation Code Description Data Dipika rce(s) Supporting Document(s) [facility] es XUCAFi3cSmVUSsBp12/JHXxtGCKew0WfIZexEGc4FEfvOKNiZ3MdADM4pQ6oQXS4GWjEItSzIuXbDHE8 lbm YrIauFZaNvNTXxQecODgLwEXwxFsuqiZLjVF3OvNM3QJIaP74pAWFxLSHrB8CeIVItZXo+Uo2IGNUukX QcVF7GUlgE7Nvba7d6AE2chZ/LzsoSYAUWGCcYKlUiezXBx8y9du4faPIUqE8n99mhd06nEpe/M/Zr5C kXZhb3eQ16so/PhaKUin9/uGxmoReg6i/8RNGSyp2E P/3vdgcTlop1V9PFZgPZQLQC8kTp/nX0FdecM6x14yC89dtTBKO9+aiYAgGUM69ie+c6UbiyzFOtoTM2 8Qu1mPKfYB9eEJyJeNrjMdcMcZ+qTUoghBAvJyq6yraFielE5AldSSKm0ymMCZDH6B2HK0kwXEWlugSZ QzuM1PFHh9arLIwTE69ts09Eexs5Sshgt+SrJJd2MI U0Q2cvEG94EM7LhABp79Qsa7IOesrzHROapJgmZkCrETvT1BftiFHTI+gX695rTz5g8sk70BgP++BkVq cLrGkcd3InO9RqB/IhKO0xylv5s0E3hZcTn4eBXGltWyhSyIr3ePu20LAxIibHmTsvL+kRj4asDEWhPx vz8K5FB2JMl+yhIIN5C7CGontbhJXnbzIYobrhh+Nikhil [file] [id number]= ID Date Data Source [id number] 11/04/2020 05:44:52 AM EDT [facility] Name Value Range Interpretation Code Description Data Dipika rce(s) Supporting Document(s) SODIUM (MMOL/L) IN SER/PLAS 135-146 [facility] POTASSIUM (MMOL/L) IN SER/PLAS 3.5-5.3 [facility] CHLORIDE (MMOL/L) IN SER/PLAS 98-107 [facility] CARBON DIOXIDE, TOTAL (MMOL/L) IN SER/PLAS 21-32 [facility] UREA NITROGEN (MG/DL) IN SER/PLAS 7-23 [facility] CREATININE (MG/DL) IN SER/PLAS 0.7-1.3 [facility] GLUCOSE (MG/DL) IN SER/PLAS 65-99 Above high normal [facility] CALCIUM (MG/DL) IN SER/PLAS 8.4-10.4 [facility] ANION GAP IN SER/PLAS 5-15 [facility] GLOMERULAR FILTRATION RATE ML/MIN/1.73 SQ M.PREDICTED >60 [facility] UREA NITROGEN/CREATININE (MASS RATIO) IN SER/PLAS [facility] ID Date Data Source [id number] 11/04/2020 05:33:18 AM EDT [facility] Name Value Range Interpretation Code Description Data Dipika rce(s) Supporting Document(s) LEUKOCYTES(10*3/UL) IN BLOOD BY AUTOMATED COUNT 4.0-10.5 [facility] ERYTHROCYTES (10*6/UL) IN BLOOD BY AUTOMATED COUNT 4.00-5. 80 [facility] HEMOGLOBIN (G/DL) IN BLOOD 13.0-18.0 [facility] HEMATOCRIT (%) IN BLOOD BY AUTOMATED COUNT 37.0-50.0 [facility] ERYTHROCYTE MEAN CORPUSCULAR VOLUME (FL) BY AUTOMATED COUNT 77.0-100.0 [facility] ERYTHROCYTE MEAN CORPUSCULAR HEMOGLOBIN (PG) BY AUTOMATED COUNT 26.0-33.0 [facility] ERYTHROCYTE MEAN CORPUSCULAR HEMOGLOBIN CONCENTRATION (G/DL) BY AUTOMATED 31.0-36.0 [facility] ERYTHROCYTE DISTRIBUTION WIDTH (RATIO) BY AUTOMATED COUNT 12.0-17.0 [facility] PLATELET MEAN VOLUME (FL) IN BLOOD BY AUTOMATED COUNT 8.0- 12.0 [facility] NEUTROPHILS/100 LEUKOCYTES IN BLOOD BY AUTOMATED COUNT 35. 0-78.0 [facility] LYMPHOCYTES/100 LEUKOCYTES IN BLOOD BY AUTOMATED COUNT 20. 0-42.0 [facility] MONOCYTES/100 LEUKOCYTES IN BLOOD BY AUTOMATED COUNT 0.0-1 5.0 [facility] EOSINOPHILS/100 LEUKOCYTES IN BLOOD BY AUTOMATED COUNT <=1 0.0 [facility] BASOPHILS/100 LEUKOCYTES IN BLOOD BY AUTOMATED COUNT <=2.0 [facility] NEUTROPHILS (10*3/UL) IN BLOOD BY AUTOMATED COUNT 1.40-8.4 0 [facility] LYMPHOCYTES (10*3/UL) IN BLOOD BY AUTOMATED COUNT 1.00-4.0 0 [facility] MONOCYTES (10*3/UL) IN BLOOD BY AUTOMATED COUNT 0.00-1.50 [facility] EOSINOPHILS (10*3/UL) IN BLOOD BY AUTOMATED COUNT <=0.70 [facility] BASOPHILS (10*3/UL) IN BLOOD BY AUTOMATED COUNT <=0.10 [facility] PLATELETS (10*3/UL) IN BLOOD AUTOMATED COUNT 125-425 [facility] IMMATURE NEUTROPHILS/100 LEUKOCYTES IN BLOOD BY AUTOMATED COUNT <=0.5 [facility] IMMATURE NEUTROPHILS (10*3/UL) IN BLOOD BY AUTOMATED COUNT <=0.40 [facility] ID Date Data Source [id number] 11/04/2020 04:12:26 AM EDT [facility] Name Value Range Interpretation Code Description Data Dipika rce(s) Supporting Document(s) Nursing [facility] es [id number]/YOMpsKPNyz4XkEWtaKYm3LXirBOGmX0ZiQEO7iR6rQOK8BKjJQfDwVwXkKLQ8 lbm FlKsmVQdIsPVCfVflZUmMgWKqlIpaonJUyHX9JvUW0KJVpN52dDQTzKZDnF0NqGBd5Yi2+POerMVI2ob NimH4OAUMDEIsL8eZIpi+0/+JTnOyfY3lTmGuS1hjADW5BjKqPguWaHdaj56BFr909wcz+B+3MO4KvJJ SffHxu/f0xLHi361e94iiNAHw/55244tV9Lln+JWqx QM/Q3w9mVYK9SUNlWrWjjfi/AXfA5G5xVm5lPcbYOtLfzVmDVgTj/lpvXWQ/gXxSHsILvwBA3TXGsc4L 3EbG4YAiGDuBMLdmnPQSitMEACLiWwg2dgPADOOd4gtZjLboPvrvHelRSkAhBPGaBCKpROIMIKUGnGle nPHMlxpCZf36kJkbsdYFOVvbSb79xCL1VXYXIyeZwq PCbNAi3oGaMaiMyYSqDDDs9vUEzNAtfXWN5InfCRrBAOTuvpjY2T0nrSkfJoYx3l/Bk7m7oRnmH4lRmh CC97cvVnJ3hUNaq0gdi3EyiNXDYCMxH+E0q6AL3mMtui8MffC1iF8MIHJQlWnMlVIHe+A4IAklimolXe W40yDis2nfdYe63WHIXp6hOEO6RWjhVfjsMihXWYan PqnG9lmLSXEREsJmbroDwqqipTkSQgaDduntY7UjAu4tXp8IijlCuVIOp7Ll9n6zhNGNCy+d0wT0knCP CR4UtCu298F2Bjhv8+tdbB86lYOwMR14DBxEOykCBU8dp9VMbXpAOLv7TMHCeJeRuJj1048JmzDj/LILLIE [file] AgICAgICAgICAgICAgICAgICAgICAgICAgICAgICAgICAgICAgICAgICAgICAgICAgICAgICAgICAgIC EpUYQcCRHyUV6JBQXgTLWoFRVvOHYxNVTuSJGcDBLx ICAgICAgICAgICAgICAgICAgICAgICAgICAgICAgICAgICAgICAgICAgICAgICAgICAgICAgICAgICAg OGGyHQKoHVXeJSZyGCSjXFHzOP1XTSUqZUQgEFYwASGsILAcLVAxCLSnELIeNSRhQUWzIFIoEALkJQDy ICAgICAgICAgICAgICAgICAgICAgICAgICAgICAgIC JwBQOpPRZySINsFDJaFQJdKRRiVENsNFInXIXiDK6GGGOnLBFjZXUxYNYrBUCnQYGqHROtLKHoVSPgJW AgICAgICAgICAgICAgICAgICAgICAgICAgICAgICAgICAgICAgICAgICAgICAgICAgICAgICAgICAgIC PyPHZjEVQqQMEyZH8ZKSCaBAAbELQiJWJvEAOuEFVc ICAgICAgICAgICAgICAgICAgICAgICAgICAgICAgICAgICAgICAgICAgICAgICAgICAgICAgICAgICAg AWWgXUSqIRMkTSMaCCVuUZDuZQBeDG8DVQEfZMTgNZWiKIGwXTJlAOMyGLZkELRsURVaXWXuPYRqHBSi ICAgICAgICAgICAgICAgICAgICAgICAgICAgICAgIC UeQSTzWPEsDZQrMZBbCMMgGRJlRXDzVUPeTNFiZEYdTS6IHMYdQBAjQGUoUXYvPHVuOVRxVPTiREWeUQ AgICAgICAgICAgICAgICAgICAgICAgICAgICAgICAgICAgICAgICAgICAgICAgICAgICAgICAgICAgIC IoZAJhXNCoIGWnOJXjWJ3DDAEhRXAcGDQqANToJNDm ICAgICAgICAgICAgICAgICAgICAgICAgICAgICAgICAgICAgICAgICAgICAgICAgICAgICAgICAgICAg XZOmFCOoRTYvLPBoFGMnUJEyIMTnCZGtTG5LDGXqZJHlVANoIRNrCQGsTTSvKBAuATHbJCYkYMKrQYXo ICAgICAgICAgICAgICAgICAgICAgICAgICAgICAgIC QpDWVsKHVjVPApJXRzVLDoIZOeHVOsTQJbKAKlWKEwDAGdCZ7SXWHaEQKeDRUrEHBdKMOjJSTeRXHyET AgICAgICAgICAgICAgICAgICAgICAgICAgICAgICAgICAgICAgICAgICAgICAgICAgICAgICAgICAgIC CgOLVwTLZcEMVoTWGrQHGdMQ7BVI18xTKau9Y2SDLy FF8sovi/Ez4PXYncbbTivWSvZZ8YClWrVQ1hag1VDgRqFT8ybt0AGTjOQsLlQ6T0jXMrEVEkFIUFCmUe M62xTUvoPb58OSvtWJLqZoElTDe6Tv1LGjIaX7qoLAUcSrM2XJAtLxCaFRgxDX2Xm9XuaHZqOJu+Pg0K YF8ff1AzEEyqIqKuVO9ftr2PSGlTVnAuP1EqlbR1LC HbNFXxJs4GCSRvQYQyiPHoIiXlBVXMYhKkY7BqjP25QFKOTs9+RCatehXsPcyLDgRjYJJuz2GbKPx1SK 4TZGWcMGu9eOGdNhMgw9yaYkLWh0KsOQM2UJiKZYFnVLEWBxkVNJB4UJrdUghvKfFrKCKaGAsoFQVFHZ oTEtEeX1Psr5EvFdJ7GRWrApYkZXolXUBiXfBlOF39 sZihXN9JXDSgNZLrNM81LBOyXPRzYp0TNl4SYvHgWF1uli9WHtDaOLOkRrmNUya9WMvvVI9EwBAcG6Rt aJTzd8kYNxHsV3COGGWuYQNxOf0PCGTqCwQwTATvQAiyOB2kQLBoEIIGxFlzdxM4IE8UJD5smkQkAY2H ElKtLa1iZo6KFpAtF6XrM1RgOFGcUVQHRDdhQJ6TPU mvMH3qGG6Xx1RBzYOnzD6dql8OMOZkHRZpGxhxcb1FMmsoH4F2uGawPHXlXgDjZTBNYArmAQ6QUTDnJJ S6SGDcABMcQNFGZqXnQ48cOM4RZ9Sny54fOdU7ODAkHhNnKFogNP24mLelaxUebRBftLluTZ5YNa7+DQ plbmRvYmoNCnhyZWYNCjAgMjUNCjAwMDAwMDAwMDAg FjQ9YaYmNv5UOKMvRLWgOKFgCtGdTJZdJKJmJTrgBWFkVAS2Bxd4NPOvHHVyKW9UVjWjVEPyVRo0DcOq NPQfOJNywv1YLATjDUQhPPQ5OyAkKAZcGDUpKQxiWOCxKUWrTjPuGQKuNCVqWN8GZmPeMVLkZUV7PkZd RDLpRFZhyg8TCHEdUNZsUhY1YpNpBKUfYFSnTPxgMN QkVXSfWIl8XESpOHTiDM8APsZyTVQoKRO2MDlhOPXqVWVdfn3MTJZgHLSnYlfrOdEnUKPvGSXpEKvnPU UlYXKkVYX5VAWlYWVwKY7RGlUoVXJlCQAqEHTsZACcRBXngt1LSXFvNWVwUVA2PVImTLDiJRAbZHzcPN WhFUO4WxjzYRBaXRQsBM4HXwBbSYCvKVS9YKLbRECx UYXinm4AUOKlEUFlSfOdGOWxQBQcRIKuOYphHZLuJZM0ImO7UHJjSWEsLA4BGjTjLXYlKUjjZQniYKJo ANBiob8HFRHiZOEfQcS4CfXzDKMmOQWlHCrjRIBqHHY3YtK2BOGjNLVaZU3MKiDwEXBwMGgsYAKqOBHd CWGlps6NKXUeCGNjRUSeSYNcRMOiKHErKSaaQQYmYZ W1PJrxYMYeIWSqQP5CFoNzYLXsPJu0LdWsQUReKIGjsu6KrYMmaPqvqj4QRKoMSp5DePmqLWW0BTfjUw 9scVEqNCXjPPPMXd2GlxVgIIBzZQUMLNqeYTIgGVYfIBYeIPCrPcNmGED2LTFlUTU3ASV1OBLwC2VsUK obSyR2KSI8ODHrUwN4FAHgSnH0WbKmOHh9YkQuX1A1 YTJlOGE+FP4xSOs+Cd9Ek3FmwlN8zzYiEYebKQq4GE2FJKRCO6XPXz== ID Date Data Source [id number] 11/03/2020 10:40:06 PM EDT [facility] Name Value Range Interpretation Code Description Data Dipika rce(s) Supporting Document(s) Nursing [facility] es LXQTIl2zXoBWKiWk95/PXCgbVYVeh2NuUYosCCm3KFxnNXYvX3QjXGS3bX6kHGP7VMlRZdIsJuGvBNF1 lbm [file] [id number]= ID Date Data Source [id number] 11/03/2020 09:27:50 PM EDT [facility] Name Value Range Interpretation Code Description Data Dipika rce(s) Supporting Document(s) AMPHETAMINE+METHAMPHETAMINE SCREEN (PRESENCE) IN URINE Negative (Cutoff: 1000 ng/mL) [facility] Drug of Abuse tests are screening [...] SCREEN METHOD Negative (Cut off: 300 ng/mL) [facility] BARBITURATES PRESENCE IN URINE BY SCREEN METHOD Negative (Cutoff: 200 ng/mL) [facility] OPIATES (PRESENCE) IN URINE BY SCREEN METHOD Negative (Cut off: 300 ng/mL) [facility] Please note that the Opiate assay does n ot detect Oxycodone and Metabolites. CREATININE IN URINE FOR UDS >30.0 [facility] ID Date Data Source [id number] 11/03/2020 03:06:27 PM EDT [facility] Name Value Range Interpretation Code Description Data Dipika rce(s) Supporting Document(s) COLOR OF URINE Yellow, Light Yellow, Straw, Clear, Colorle ss, Dark Yellow [facility] CLARITY OF URINE Clear [facility] PH OF URINE 5.0, 5.5, 6.0, 6.5, 7.0, 7.5 Abn ormal (applies to non-numeric results) [facility] LEUKOCYTE ESTERASE PRESENCE IN URINE BY TEST STRIP Negativ e, Trace [facility] NITRITE PRESENCE IN URINE Negative [facility] PROTEIN IN URINE BY TEST STRIP Negative, Trace A bnormal (applies to non- numeric results) [facility] GLUCOSE IN URINE Normal [facility] BILIRUBIN, PRESENCE IN URINE Negative [facility] SPECIFIC GRAVITY OF URINE 1.005-1.030 [facility] KETONES (MG/DL) IN URINE Negative, Trace [facility] UROBILINOGEN (MG/DL) IN URINE Normal [facility] HEMOGLOBIN PRESENCE IN URINE Negative [facility] ID Date Data Source [id number] 11/03/2020 03:35:45 PM EDT [facility] Name Value Range Interpretation Code Description Data Dipika rce(s) Supporting Document(s) RBC (#/HPF) IN URINE SEDIMENT 0-2 [facility] WBC (LEUKOCYTE) (#/HPF) IN URINE SEDIMENT 0-2 [facility] SQUAMOUS EPITHELIAL CELLS IN URINE SEDIMENT [facility] BACTERIA (#/HPF) IN URINE Few, None Seen [facility] ID Date Data Source [id number] 11/03/2020 04:09:53 PM EDT [facility] Name Value Range Interpretation Code Description Data Dipika rce(s) Supporting Document(s) SARS-COV-2 BY NAAT Negative, Indeterminate [facility] NUCLEIC ACID SEQUENCES OF THE 2019 NOVEL CORONAVIRUSWERE NOT DETECTED BY PCR.NOTE: THIS TEST WAS DEVELOPED FOR THE PURPOSE OFDIAGNOSTIC TESTING TO ALLOW FOR RAPID RESPONSEDURING A DECLARED PUBLIC HEALTH EMERGENCY AND HASEUA CLEARANCE FROM THE FDA. NEGATIVE RESULTS DO NOTPRECLUDE 2019_nCoV INFECTION AND SHOULD NOT BEUSED THE SOLE BASIS FOR PATIENT MANAGEMENT DECISIONS. ID Date Data Source [id number] 11/03/2020 01:36:00 PM EDT [facility] Name Value Range Interpretation Code Description Data Dipika rce(s) Supporting Document(s) SARS-CoV-2 RNA Resp Ql ADRIANNE+probe Negative [facility] This lab was ordered by [facility] and reported by [facility]. ID Date Data Source [id number] 11/03/2020 02:05:45 PM EDT [facility] Name Value Range Interpretation Code Description Data Dipika rce(s) Supporting Document(s) MAGNESIUM (MG/DL) IN SER/PLAS 1.6-2.4 [facility] ID Date Data Source [id number] 11/03/2020 02:05:45 PM EDT [facility] Name Value Range Interpretation Code Description Data Dipika rce(s) Supporting Document(s) SODIUM (MMOL/L) IN SER/PLAS 135-146 Un [facility] POTASSIUM (MMOL/L) IN SER/PLAS 3.5-5.3 [facility] CHLORIDE (MMOL/L) IN SER/PLAS 98-107 [facility] CARBON DIOXIDE, TOTAL (MMOL/L) IN SER/PLAS 21-32 [facility] ANION GAP IN SER/PLAS 5-15 [facility] UREA NITROGEN (MG/DL) IN SER/PLAS 7-23 [facility] CREATININE (MG/DL) IN SER/PLAS 0.7-1.3 [facility] UREA NITROGEN/CREATININE (MASS RATIO) IN SER/PLAS [facility] GLUCOSE (MG/DL) IN SER/PLAS 65-99 Above high normal [facility] CALCIUM (MG/DL) IN SER/PLAS 8.4-10.4 [facility] ASPARTATE AMINOTRANSFERASE (SGOT) (U/L) IN SER/PLAS <59 Above high normal [facility] ALANINE AMINOTRANSFERASE (SGPT) (U/L) IN SER/PLAS <50 Above high normal [facility] ALKALINE PHOSPHATASE (U/L) IN SER/PLAS 38-126 [facility] PROTEIN (G/DL) IN SER/PLAS 6.3-8.2 [facility] ALBUMIN (G/DL) IN SER/PLAS 3.5-5.0 [facility] ALBUMIN/GLOBULIN (G/G RATIO) IN SER/PLAS [facility] BILIRUBIN TOTAL (MG/DL) IN SER/PLAS 0.1-1.3 [facility] GLOMERULAR FILTRATION RATE ML/MIN/1.73 SQ M.PREDICTED >60 [facility] ID Date Data Source [id number] 11/03/2020 02:05:45 PM EDT [facility] Name Value Range Interpretation Code Description Data Dipika rce(s) Supporting Document(s) ETHANOL (G/DL) IN SER/PLAS <0.01 [facility] This test is for medical use only ID Date Data Source [id number] 11/03/2020 09:00:45 PM EDT [facility] Name Value Range Interpretation Code Description Data Dipika rce(s) Supporting Document(s) PHOSPHATE (MG/DL) IN SER/PLAS 2.5-4.5 [facility] ID Date Data Source [id number] 11/03/2020 01:49:21 PM EDT [facility] Name Value Range Interpretation Code Description Data Dipika rce(s) Supporting Document(s) LEUKOCYTES(10*3/UL) IN BLOOD BY AUTOMATED COUNT 4.0-10.5 [facility] ERYTHROCYTES (10*6/UL) IN BLOOD BY AUTOMATED COUNT 4.00-5. 80 [facility] HEMOGLOBIN (G/DL) IN BLOOD 13.0-18.0 [facility] HEMATOCRIT (%) IN BLOOD BY AUTOMATED COUNT 37.0-50.0 [facility] ERYTHROCYTE MEAN CORPUSCULAR VOLUME (FL) BY AUTOMATED COUNT 77.0-100.0 [facility] ERYTHROCYTE MEAN CORPUSCULAR HEMOGLOBIN (PG) BY AUTOMATED COUNT 26.0-33.0 [facility] ERYTHROCYTE MEAN CORPUSCULAR HEMOGLOBIN CONCENTRATION (G/DL) BY AUTOMATED 31.0-36.0 [facility] ERYTHROCYTE DISTRIBUTION WIDTH (RATIO) BY AUTOMATED COUNT 12.0-17.0 [facility] PLATELET MEAN VOLUME (FL) IN BLOOD BY AUTOMATED COUNT 8.0- 12.0 [facility] NEUTROPHILS/100 LEUKOCYTES IN BLOOD BY AUTOMATED COUNT 35.0-78.0 Above high normal [facility] LYMPHOCYTES/100 LEUKOCYTES IN BLOOD BY AUTOMATED COUNT 20.0-42.0 Below low normal [facility] MONOCYTES/100 LEUKOCYTES IN BLOOD BY AUTOMATED COUNT 0.0-1 5.0 [facility] EOSINOPHILS/100 LEUKOCYTES IN BLOOD BY AUTOMATED COUNT <=1 0.0 [facility] BASOPHILS/100 LEUKOCYTES IN BLOOD BY AUTOMATED COUNT <=2.0 [facility] NEUTROPHILS (10*3/UL) IN BLOOD BY AUTOMATED COUNT 1.40-8.4 0 [facility] LYMPHOCYTES (10*3/UL) IN BLOOD BY AUTOMATED COUNT 1.00 -4.00 Below low normal [facility] MONOCYTES (10*3/UL) IN BLOOD BY AUTOMATED COUNT 0.00-1.50 [facility] EOSINOPHILS (10*3/UL) IN BLOOD BY AUTOMATED COUNT <=0.70 [facility] BASOPHILS (10*3/UL) IN BLOOD BY AUTOMATED COUNT <=0.10 [facility] PLATELETS (10*3/UL) IN BLOOD AUTOMATED COUNT 125-425 [facility] IMMATURE NEUTROPHILS/100 LEUKOCYTES IN BLOOD BY AUTOMATED COUNT <=0.5 [facility] IMMATURE NEUTROPHILS (10*3/UL) IN BLOOD BY AUTOMATED COUNT <=0.40 [facility] ID Date Data Source [id number] 11/03/2020 01:43:04 PM EDT [facility] Name Value Range Interpretation Code Description Data Dipika rce(s) Supporting Document(s) PROTHROMBIN TIME (PT) IN PPP BY COAGULATION ASSAY 9.0-13.0 [facility] LESS INTENSE THERAPEUTIC RANGE: 2.00 TO 3.00MORE INTENSE THERAPEUTIC RANGE: 2.50 TO 3.50THERAPEUTIC RANGE FOR MECHANICAL HEART VALVE: 2.50 TO 3.50Note: The INR is intended to be used only for patients on coumadin type anticoagulants at stable dosing levels INR IN PPP BY COAGULATION ASSAY 0.76-1.09 [facility] ID Date Data Source [id number] 11/03/2020 01:43:04 PM EDT [facility] Name Value Range Interpretation Code Description Data Dpiika rce(s) Supporting Document(s) ACTIVATED PARTIAL THROMBOPLASTIN TIME IN PPP BY COAGULATION ASSAY 22-37 [facility] aPTT THERAPEUTIC RANGE FOR UNFRACTIONATE D HEPARIN IS 61-100 seconds.aPTT Therapeutic range for unfractionated heparin in Acute Coronary Syndrome-IN patients is 50-70 seconds. ID Date Data Source [id number] 11/03/2020 11:15:04 AM EDT [facility] Name Value Range Interpretation Code Description Data Dipika rce(s) Supporting Document(s) ED Triage No [facility] [id number] lb [file] [id number]= ID Date Data Source [id number] 01/14/2020 05:04:43 PM [facility] agnetic Imaging XRAY FXPatient: BLAKE WALKER : [birth year] PACS System: Jiva TechnologyProcedure: MRI LUMBAR SPINE WO CONTRAST Provider: SHANEKA [...] rce(s) Supporting Document(s) ID Date Data Source [id number] 01/14/2020 01:41:20 PM [facility] agnetic Imaging XRAY FXPatient: BLAKE WALKER : [birth year] PACS System: Jiva TechnologyProcedure: MRI THORACIC SPINE WO CONTRAST Provider: SHANEKA [...] upper thoracic levels at T1-T2, T2-T3, and T3-Y7ibocwkr spinal or foraminal stenosis.3. Normal appearance of the thoracic spinal cord.Report edited for Shahzad Díaz MD 01/14/2020 12:22 PM Electronically Signed by Shahzad Díaz MD 01/14/2020 1:41 PM Name Value Range Interpretation Code Description Data Dipika rce(s) Supporting Document(s) ID Date Data Source [id number] 01/14/2020 01:41:13 PM [facility] XRAY FXPatient: BLAKE WALKER : [birth year] PACS [facility]: [facility] CONTRAST Provider: SHANEKA [...] rce(s) Supporting Document(s) ID Date Data Source [id number] 12/04/2019 11:20:27 AM EDT [facility] Patient: BLAKE WALKER : 1975 M RN: [id number] PACS System: [facility] TizraProcedure: XR SCOLIOSIS 1 VIEW Provider: SHANEKA ANNA [...] day smoker [facility] ([facility]) 12/29/2020 12:00:00 AM EST Cigarette smoker completed Cig arette smoker [facility] ([facility]) Tobacco smoking status NHIS 11/03/2020 12:00:00 AM EDT Current e very day smoker [facility] Cigarettes smoked current (pack per day) - Reported 11/04/19 12:00:00 AM EDT [facility] Alcohol intake 11/03/2020 12:00:00 AM EDT Not Asked [facility] 12/27/2019 12:00:00 AM EST Current Smoker completed Curre nt Smoker MEDENT ([facility]) Smoking 12/17/2019 12:00:00 AM EST Current Smoker completed Curre nt Smoker eCW1 ([facility]) Smoking 12/17/2019 12:00:00 AM EST Current Smoker completed Curre nt Smoker eCW1 ([facility]) Vital Signs ID Date Data Source UNK Name Value Range Interpretation Code Description Data Source(s) Body height 175.26 cm 175.26 cm [facility] ([facility]) Body weight 71.486 kg 71.486 kg [facility] ([facility]) Systolic blood pressure 138 mm[Hg] 138 mm[Hg] N extGen ([facility]) Diastolic blood pressure 82 mm[Hg] 82 mm[Hg] [facility] ([facility]) Body mass index (BMI) [Ratio] 23.27 kg/m2 23.27 kg/m2 [facility] ([facility]) Body height 69 [in_i] 69 [in_i] [facility] ([facility]) 5'9" Body weight 164.00 [lb_av] 164.00 [lb_av] MEDEN T ([facility]) Body mass index (BMI) [Ratio] 24.2 kg/m2 24.2 k g/m2 [facility] ([facility] Body mass index (BMI) [Ratio] 24.2 kg/m2 24.2 k g/m2 [facility] ([facility]) Body height 69 [in_i] 69 [in_i] [facility] ([facility] 5'9" Body weight 164.00 [lb_av] 164.00 [lb_av] MEDEN T ([facility]) Respiratory rate 18 /min 18 /min MED[facility] ( [facility]) Body height 68.5 [in_i] 68.5 [in_i] eCW1 ([facility]) Body weight 164 [lb_av] 164 [lb_av] eCW1 ([facility]) Body mass index (BMI) [Ratio] 24.57 kg/m2 24.57 kg/m2 eCW1 ([facility]) Body temperature 99.1 [degF] 99.1 [degF] eCW1 ( [facility]) Heart rate 82 /min 82 /min eCW1 ([facility]) Respiratory rate 18 /min 18 /min eCW1 ([facility]) Oxygen saturation in Arterial blood by Pulse oximetry 96 % 96 % eCW1 ([facility]) Systolic blood pressure 122 mm[Hg] 122 mm[Hg] e CW1 ([facility]) Diastolic blood pressure 74 mm[Hg] 74 mm[Hg] eCW1 ([facility]) ID Date Data Source [id number] 11/11/2020 02:42:17 PM EDT [facility] Name Value Range Interpretation Code Description Data Source(s) WEIGHT 156.97 lb 156.97 lb [facility] HEIGHT 69 in 69 in [facility] WEIGHT 160 lb 160 lb [facility] HEIGHT 69 in 69 in [facility] Patient Treatment Plan of Care Planned Activity Planned Date Details Description Data Source (s) Doxycycline Monohydrate 100 MG Oral Tablet 12/29/2020 12:00:[address] [facility])
[2021-01-20] MEDS ORDERED: ISOVUE-370 76% 100ML VIAL As Ordered ONE (02:37)
--- NOTE | 2021-01-20 03:38 | REPVR ---
PROCEDURE INFORMATION: Exam: XR Chest Exam date and time: 01/20/21 (1:14am) Age: 45 years old Clinical indication: Chest pain TECHNIQUE: Imaging protocol: XR of the chest Views: 1 view COMPARISON: No relevant prior studies available FINDINGS: Lungs: Unremarkable. No consolidation. Pleural spaces: Unremarkable. No pleural effusions. No pneumothorax. Heart/Mediastinum: Unremarkable. No cardiomegaly. Bones/joints: Dextroscoliosis of the mid and lower thoracic spine. IMPRESSION: No acute findings. Electronically signed by: Nettie Viveros On 01/20/2021 03:37:24 AM
--- NOTE | 2021-01-20 03:44 | REPVR ---
PROCEDURE INFORMATION: Exam: CTA Chest with Contrast Exam date and time: 01/20/21 (3:07am) Age: 45 years old Clinical indication: Pleuritic chest pain. Elevated D-dimer. TECHNIQUE: Imaging protocol: Computed tomographic angiography of the chest with contrast. 3D rendering (Not supervised by radiologist): MIP and/or 3D reconstructed images were created by the technologist. Radiation optimization: All CT scans at this facility use at least one of these dose optimization techniques: automated exposure control; mA and/or kV adjustment per patient size (includes targeted exams where dose is matched to clinical indication); or iterative reconstruction. Contrast material: Iso Contrast volume: 75 ml Contrast route: IV COMPARISON: Frontal CXR of 01/20/21 FINDINGS: Pulmonary arteries: Normal. No pulmonary emboli. Aorta: Unremarkable. No aortic aneurysm. No aortic dissection. Lungs: Unremarkable. No consolidation. No masses. Pleural spaces: Unremarkable. No pneumothorax. No pleural effusions. Heart: Unremarkable. No cardiomegaly. No pericardial effusion. Lymph nodes: Unremarkable. No enlarged lymph nodes. Bones/joints: Unremarkable. No acute fracture. Soft tissues: Unremarkable. IMPRESSION: No acute findings. No filling defects suspicious for pulmonary emboli are seen. There is no CT evidence of aortic dissection nor leakage. No aortic aneurysm is appreciated. Electronically signed by: Nettie Viveros On 01/20/2021 03:44:15 AM
[2021-01-20 05:22] LABS: ACETAMINOPHEN LEVEL < 2.0 UG/ML (10.0-30.0); ETHYL ALCOHOL (ETHANOL) 0.304 % (0.000-0.010); SALICYLATE LEVEL 3.9 MG/DL (5.0-30.0)
[2021-01-20 05:39] VITALS: BP 118/69
[2021-01-20 05:41] LABS: AMPHETAMINES LEVEL URINE NEGATIVE (NEGATIVE); BARBITURATES URINE NEGATIVE (NEGATIVE); BENZODIAZEPINES URINE NEGATIVE (NEGATIVE); CANNABINOIDS URINE POSITIVE (NEGATIVE); COCAINE METABOLITE URINE NEGATIVE (NEGATIVE); METHADONE URINE NEGATIVE (NEGATIVE); OPIATES URINE NEGATIVE (NEGATIVE); PHENCYCLIDINE URINE NEGATIVE (NEGATIVE)
[2021-01-20 10:32] LABS: HEPATITIS B SURFACE ANTIGEN NEGATIVE (NEGATIVE)
[2021-01-20 10:59] LABS: HEPATITIS C VIRUS ABY INDEX 0.1 INDEX (<0.8)
[2021-01-20 11:00] LABS: HEPATITIS B CORE ANTIBODY IGM NEGATIVE (NEGATIVE)
--- NOTE | 2021-01-21 05:43 | ECGEPIP ---
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
== END 2021-01-20 06:42 | disposition home or self-care (01) ==
LOC: M ED 00:19
DX: J06.9 Acute upper respiratory infection, unspecified (principal); R94.5 Abnormal results of liver function studies; I44.0 Atrioventricular block, first degree; F41.9 Anxiety disorder, unspecified; F32.9 Major depressive disorder, single episode, unspecified; F10.10 Alcohol abuse, uncomplicated; F17.200 Nicotine dependence, unspecified, uncomplicated; F19.10 Other psychoactive substance abuse, uncomplicated
CPT/HCPCS: 71045; 71275; 80053; 80143; 80307; 82077; 82550; 82553; 83735; 85025; 85379; 86705; 86709; 86803; 87340; 87631; 93005; 99284; Q9967

== ENCOUNTER → 2021-01-28 | Outpatient (CLI) | payer BC | LOC: M OUTALCOH 07:29 | PROVIDERS: ATTEND Psychiatry & Neurology Psychiatry | DX: Z13.39 Encounter for screening examination for other mental health and behavioral disorders (principal) ==

== ENCOUNTER → 2021-03-09 | Outpatient (RCR) | payer BC | LOC: M OUTALCOH 02-16 11:24 | PROVIDERS: ATTEND Psychiatry & Neurology Psychiatry | DX: F10.20 Alcohol dependence, uncomplicated (principal); F12.20 Cannabis dependence, uncomplicated; F17.200 Nicotine dependence, unspecified, uncomplicated ==

== ENCOUNTER → 2021-10-21 | Outpatient (CLI) | payer BC | LOC: M RAD 15:12 | PROVIDERS: ATTEND Nurse Practitioner Family | DX: M54.2 Cervicalgia (principal); M25.78 Osteophyte, vertebrae; M47.812 Spondylosis without myelopathy or radiculopathy, cervical region ==

== ENCOUNTER → 2021-12-07 | Outpatient (CLI) | payer BC | LOC: M RAD 11:31 | PROVIDERS: ATTEND Nurse Practitioner Family | DX: M79.641 Pain in right hand (principal); M19.041 Primary osteoarthritis, right hand ==

== ENCOUNTER → 2022-01-06 | Outpatient (CLI) | payer BC | LOC: M PLAIMG 09:48 | PROVIDERS: ATTEND Nurse Practitioner Family | DX: M50.21 Other cervical disc displacement, high cervical region (principal); M50.321 Other cervical disc degeneration at C4-C5 level; M50.322 Other cervical disc degeneration at C5-C6 level; M50.323 Other cervical disc degeneration at C6-C7 level; M50.33 Other cervical disc degeneration, cervicothoracic region; M48.02 Spinal stenosis, cervical region ==

== ENCOUNTER 2022-02-23 10:31 | Emergency (ER) | payer BC ==
[~2022-02-23] VITALS: Ht 175.3 cm; Wt 67.2 kg
[2022-02-23] MEDS ORDERED: NS 1,000 ML IV ONE (13:35)
[2022-02-23 14:32] LABS: BASO % 0.5 % (0.0-1.0); EOS # 0.2 10^3/uL (0.0-0.5); EOS % 1.9 % (0.0-3.0); HEMATOCRIT 40.1 % (42.0-52.0); HEMOGLOBIN 14.2 g/dl (13.5-17.5); LYMPH # 1.8 10^3/uL (1.5-5.0); LYMPH % 22.1 % (24.0-44.0); MEAN CORPUSCULAR HEMOGLOBIN 30.6 pg (27.0-33.0); MEAN CORPUSCULAR HGB CONC 35.4 g/dl (32.0-36.5); MEAN CORPUSCULAR VOLUME 86.4 fl (80.0-96.0); MONO # 0.7 10^3/uL (0.0-0.8); NEUTROPHILS # 5.5 10^3/uL (1.5-8.5); NEUTROPHILS % 67.1 % (36.0-66.0); RED BLOOD COUNT 4.64 10^6/uL (4.30-6.10); WHITE BLOOD COUNT 8.3 10^3/uL (4.0-10.0)
[2022-02-23 14:53] LABS: INR 0.93; PROTHROMBIN TIME 12.7 SECONDS (12.5-14.5)
[2022-02-23 17:17] LABS: ETHYL ALCOHOL (ETHANOL) 0.126 % (0.000-0.010); LIPASE 69 U/L (12-53)
[2022-02-23 17:19] LABS: CPK CREATINE PHOSPHOKINASE 612 U/L (46-171)
[2022-02-23] MEDS ORDERED: ISOVUE-370 76% 100ML VIAL As Ordered ONE (17:42)
[2022-02-23 17:46] LABS: ALKALINE PHOSPHATASE 130 U/L (46-116); ALT/SGPT 57 U/L (7.0-40); AST/SGOT 81 U/L (<34); BILIRUBIN,TOTAL 0.4 MG/DL (0.3-1.2); BLOOD UREA NITROGEN 5 MG/DL (9-23); CALCIUM LEVEL 8.1 MG/DL (8.5-10.1); CARBON DIOXIDE LEVEL 28 MMOL/L (20-31); CHLORIDE LEVEL 102 MMOL/L (98-107); CK-MB VALUE MASS 1.5 NG/ML (<3.6); GLOMERULAR FILTRATION RATE > 60.0 (>60); GLUCOSE, FASTING 74 MG/DL (60-100); MB/CK RELATIVE INDEX 0.24 (< OR =4); POTASSIUM SERUM 4.1 MMOL/L (3.5-5.1); SODIUM LEVEL 139 MMOL/L (136-145); TOTAL PROTEIN 7.4 G/DL (5.7-8.2)
[2022-02-23 19:01] VITALS: BP 166/91
== END 2022-02-23 19:07 | disposition home or self-care (01) ==
LOC: M ED 10:31
DX: R06.6 Hiccough (principal); K92.2 Gastrointestinal hemorrhage, unspecified; I44.0 Atrioventricular block, first degree; I45.19 Other right bundle-branch block; I25.2 Old myocardial infarction; F17.200 Nicotine dependence, unspecified, uncomplicated; F12.10 Cannabis abuse, uncomplicated; Z91.018 Allergy to other foods

== ENCOUNTER 2022-04-23 12:52 | Emergency (ER) | payer BC ==
[~2022-04-23] VITALS: Ht 175.3 cm; Wt 68.3 kg
[2022-04-23 12:52] VITALS: BP 147/90
[2022-04-23 16:48] LABS: BASO % 0.7 % (0.0-1.0); EOS # 0.1 10^3/uL (0.0-0.5); EOS % 1.6 % (0.0-3.0); HEMATOCRIT 41.8 % (42.0-52.0); HEMOGLOBIN 14.6 g/dl (13.5-17.5); LYMPH # 2.1 10^3/uL (1.5-5.0); LYMPH % 36.4 % (24.0-44.0); MEAN CORPUSCULAR HEMOGLOBIN 30.4 pg (27.0-33.0); MEAN CORPUSCULAR HGB CONC 34.9 g/dl (32.0-36.5); MEAN CORPUSCULAR VOLUME 86.9 fl (80.0-96.0); MONO # 0.5 10^3/uL (0.0-0.8); MONO % 8.1 % (2.0-8.0); NEUTROPHILS # 3.1 10^3/uL (1.5-8.5); NEUTROPHILS % 52.7 % (36.0-66.0); PLATELET COUNT, AUTOMATED 151 10^3/uL (150-450); RED BLOOD COUNT 4.81 10^6/uL (4.30-6.10); WHITE BLOOD COUNT 5.8 10^3/uL (4.0-10.0)
[2022-04-23 17:12] LABS: LIPASE 53 U/L (12-53)
[2022-04-23 17:40] LABS: ALBUMIN 3.3 G/DL (3.2-5.2); ALKALINE PHOSPHATASE 115 U/L (46-116); ALT/SGPT 47 U/L (7.0-40); AST/SGOT 67 U/L (<34); BILIRUBIN,DIRECT 0.1 MG/DL (<0.4); BILIRUBIN,TOTAL 0.4 MG/DL (0.3-1.2); BLOOD UREA NITROGEN 6 MG/DL (9-23); CALCIUM LEVEL 8.7 MG/DL (8.5-10.1); CARBON DIOXIDE LEVEL 31 MMOL/L (20-31); CHLORIDE LEVEL 103 MMOL/L (98-107); CREATININE FOR GFR 0.73 MG/DL (0.70-1.30); GLOMERULAR FILTRATION RATE > 60.0 (>60); GLUCOSE, FASTING 90 MG/DL (60-100); POTASSIUM SERUM 4.4 MMOL/L (3.5-5.1); SODIUM LEVEL 140 MMOL/L (136-145); TOTAL PROTEIN 7.5 G/DL (5.7-8.2)
[2022-04-23] MEDS ORDERED: CHLO25TA88 PO (17:46)
[2022-04-23] MEDS ORDERED: LIDO5DIS41 TD (17:52)
== END 2022-04-23 18:00 | disposition left against medical advice (07) ==
LOC: M ED 12:52
DX: R10.9 Unspecified abdominal pain (principal); Z53.9 Procedure and treatment not carried out, unspecified reason; F43.10 Post-traumatic stress disorder, unspecified; F41.9 Anxiety disorder, unspecified; F31.30 Bipolar disorder, current episode depressed, mild or moderate severity, unspecified; F17.200 Nicotine dependence, unspecified, uncomplicated; Z91.018 Allergy to other foods

== ENCOUNTER 2022-04-27 18:59 | Inpatient (IN) | payer BC ==
[~2022-04-27 18:59] MED LIST: CHLO25TA88 PO; LIDO5DIS41 TD
[2022-04-27 19:59] LABS: HEMATOCRIT 43.7 % (42.0-52.0); HEMOGLOBIN 15.3 g/dl (13.5-17.5); MEAN CORPUSCULAR HEMOGLOBIN 30.2 pg (27.0-33.0); MEAN CORPUSCULAR VOLUME 86.4 fl (80.0-96.0); RED BLOOD COUNT 5.06 10^6/uL (4.30-6.10)
[2022-04-27 20:17] LABS: ACETAMINOPHEN LEVEL < 2.0 UG/ML (10.0-20.0); ALBUMIN 3.5 G/DL (3.2-5.2); ALKALINE PHOSPHATASE 121 U/L (46-116); ALT/SGPT 50 U/L (7.0-40); AMPHETAMINES LEVEL URINE NEGATIVE (NEGATIVE); AST/SGOT 78 U/L (<34); BARBITURATES URINE NEGATIVE (NEGATIVE); BENZODIAZEPINES URINE NEGATIVE (NEGATIVE); BILIRUBIN,DIRECT < 0.1 MG/DL (<0.4); BILIRUBIN,TOTAL 0.3 MG/DL (0.3-1.2); BLOOD UREA NITROGEN 8 MG/DL (9-23); CALCIUM LEVEL 8.6 MG/DL (8.5-10.1); CANNABINOIDS URINE NEGATIVE (NEGATIVE); CARBON DIOXIDE LEVEL 28 MMOL/L (20-31); CHLORIDE LEVEL 102 MMOL/L (98-107); CREATININE FOR GFR 0.61 MG/DL (0.70-1.30); GLOMERULAR FILTRATION RATE > 60.0 (>60); GLUCOSE, FASTING 99 MG/DL (60-100); PHENCYCLIDINE URINE NEGATIVE (NEGATIVE); SALICYLATE LEVEL < 3.0 MG/DL (<30); SODIUM LEVEL 137 MMOL/L (136-145); TOTAL PROTEIN 8.1 G/DL (5.7-8.2)
[2022-04-27 20:18] LABS: COCAINE METABOLITE URINE NEGATIVE (NEGATIVE); METHADONE URINE NEGATIVE (NEGATIVE); OPIATES URINE NEGATIVE (NEGATIVE)
[2022-04-27 20:19] LABS: THYROID STIMULATING HORMONE 1.017 uIU/ML (0.55-4.78)
[2022-04-27 20:29] LABS: ETHYL ALCOHOL (ETHANOL) 0.403 % (0.000-0.010)
[2022-04-28] MEDS ORDERED: CHLOR25TA PO (09:13)
[2022-04-28] MEDS ORDERED: LIDO5DIS41 TD (09:13)
[2022-04-28] MEDS ORDERED: HOME MED LIST COMPLETE! XX SCH (09:15)
[2022-04-28] MEDS ORDERED: ONDANSETRON 4MG 2ML VIAL IV ONE (09:25)
[2022-04-28] MEDS ORDERED: LORazepam 2 MG/ML 1ML VIAL IV STA (09:25)
[2022-04-28] MEDS ORDERED: MULTIVITAMIN -ADULT INJECTION 10 ML, THIAMINE INJection 100 MG, FOLIC ACID 1 MG in NS 1... IV ONE (09:25)
[2022-04-28] MEDS ORDERED: NS 1,000 ML IV ONE (09:25)
[2022-04-28] MEDS ORDERED: LORazepam 2 MG TAB PO PRN ×2 (10:00→14:30)
[2022-04-28] MEDS ORDERED: ONDANSETRON 4MG ORAL DISINTEGRATING TAB PO ONE (20:25)
[2022-04-28] MEDS ORDERED: THIAMINE 100 MG TAB PO SCH (21:00)
[2022-04-28] MEDS ORDERED: OXAZEPAM 15MG CAP PO ONE (21:30)
[2022-04-29] VITALS (8 sets, daily range): BP systolic 124–176; BP diastolic 61–110
[2022-04-29] MEDS ORDERED: MAALOX 30 ML SUSP *UDC PO PRN (03:45)
[2022-04-29] MEDS ORDERED: MOM 30ML SUSPENSION UDC PO PRN (03:45)
[2022-04-29] MEDS ORDERED: ACETAMINOPHEN TAB 650MG DOSE (2X325MG) PO PRN (03:45)
[2022-04-29] MEDS: LORazepam 2 MG TAB PO PRN ×2 (04:59→21:29)
[2022-04-29] MEDS ORDERED: NICOTINE 14 MG/24 HR TRANSDERMAL TD SCH (09:00)
[2022-04-29] MEDS ORDERED: FOLIC ACID 1MG TAB PO SCH (09:00)
[2022-04-29] MEDS ORDERED: MULTIVITAMINS/MINERALS THERAP 1 TAB PO SCH (09:00)
[2022-04-29] MEDS ORDERED: ONDANSETRON 4MG TAB PO PRN (09:40)
[2022-04-29] MEDS: MULTIVITAMINS/MINERALS THERAP 1 TAB PO SCH (10:01)
[2022-04-29] MEDS: FOLIC ACID 1MG TAB PO SCH (10:01)
[2022-04-29] MEDS: OXAZEPAM 10MG CAP PO SCH ×2 (10:01→21:31)
[2022-04-29] MEDS: THIAMINE 100 MG TAB PO SCH ×2 (10:01→21:31)
[2022-04-29] MEDS: SERTRALINE HCL 25 MG TABLET PO SCH (10:01)
[2022-04-29] MEDS ORDERED: ONDANSETRON 4MG ORAL DISINTEGRATING TAB SL PRN (15:05)
[2022-04-29] MEDS: PANTOPRAZOLE 40MG TAB (PROTONIX) PO SCH ×2 (16:13→21:31)
[2022-04-29] MEDS: SUCRALFATE SUSP 1GM/10ML UD PO SCH (18:58)
[2022-04-29] MEDS: PRAZOSIN 1 MG CAP PO SCH (21:29)
[2022-04-29] MEDS: traZODone 50 MG TAB PO PRN (21:31)
[2022-04-30] MEDS: SUCRALFATE SUSP 1GM/10ML UD PO SCH ×5 (00:04→22:40)
[2022-04-30 06:43] VITALS: BP 135/88
[2022-04-30 06:46] VITALS: BP 135/88
[2022-04-30 07:41] LABS: BASO % 0.5 % (0.0-1.0); EOS # 0.2 10^3/uL (0.0-0.5); EOS % 5.3 % (0.0-3.0); HEMATOCRIT 39.2 % (42.0-52.0); HEMOGLOBIN 13.8 g/dl (13.5-17.5); LYMPH # 1.2 10^3/uL (1.5-5.0); LYMPH % 29.8 % (24.0-44.0); MEAN CORPUSCULAR HEMOGLOBIN 30.7 pg (27.0-33.0); MEAN CORPUSCULAR HGB CONC 35.2 g/dl (32.0-36.5); MEAN CORPUSCULAR VOLUME 87.3 fl (80.0-96.0); MONO # 0.3 10^3/uL (0.0-0.8); MONO % 7.5 % (2.0-8.0); NEUTROPHILS # 2.3 10^3/uL (1.5-8.5); NEUTROPHILS % 56.7 % (36.0-66.0); RED BLOOD COUNT 4.49 10^6/uL (4.30-6.10); WHITE BLOOD COUNT 4.1 10^3/uL (4.0-10.0)
[2022-04-30 07:51] LABS: BLOOD UREA NITROGEN 9 MG/DL (9-23); CALCIUM LEVEL 8.4 MG/DL (8.5-10.1); CARBON DIOXIDE LEVEL 28 MMOL/L (20-31); CHLORIDE LEVEL 103 MMOL/L (98-107); CREATININE FOR GFR 0.74 MG/DL (0.70-1.30); GLOMERULAR FILTRATION RATE > 60.0 (>60); GLUCOSE, FASTING 84 MG/DL (60-100); POTASSIUM SERUM 3.9 MMOL/L (3.5-5.1); SODIUM LEVEL 137 MMOL/L (136-145)
[2022-04-30] MEDS: OXAZEPAM 10MG CAP PO SCH ×2 (09:47→21:46)
[2022-04-30] MEDS: THIAMINE 100 MG TAB PO SCH ×2 (09:48→21:46)
[2022-04-30] MEDS: SERTRALINE HCL 25 MG TABLET PO SCH (09:48)
[2022-04-30] MEDS: PANTOPRAZOLE 40MG TAB (PROTONIX) PO SCH ×2 (09:48→21:46)
[2022-04-30] MEDS: MULTIVITAMINS/MINERALS THERAP 1 TAB PO SCH (09:48)
[2022-04-30] MEDS: FOLIC ACID 1MG TAB PO SCH (09:49)
[2022-04-30 15:00] VITALS: BP 137/82
[2022-04-30 18:11] VITALS: BP 150/82
[2022-04-30 21:40] VITALS: BP 126/72
[2022-04-30] MEDS: PRAZOSIN 1 MG CAP PO SCH (21:46)
[2022-05-01] MEDS: SUCRALFATE SUSP 1GM/10ML UD PO SCH ×4 (05:07→22:22)
[2022-05-01 05:56] VITALS: BP 166/98
[2022-05-01 05:57] VITALS: BP 166/98
[2022-05-01] MEDS: LORazepam 2 MG TAB PO PRN (05:58)
[2022-05-01] MEDS: PANTOPRAZOLE 40MG TAB (PROTONIX) PO SCH ×2 (09:18→21:51)
[2022-05-01] MEDS: FOLIC ACID 1MG TAB PO SCH (09:18)
[2022-05-01] MEDS: MULTIVITAMINS/MINERALS THERAP 1 TAB PO SCH (09:18)
[2022-05-01] MEDS: OXAZEPAM 10MG CAP PO SCH ×2 (09:18→21:52)
[2022-05-01] MEDS: THIAMINE 100 MG TAB PO SCH ×2 (09:18→21:51)
[2022-05-01] MEDS: SERTRALINE HCL 25 MG TABLET PO SCH (09:18)
[2022-05-01 18:16] VITALS: BP 132/85
[2022-05-01] MEDS: PRAZOSIN 1 MG CAP PO SCH (21:52)
[2022-05-02] MEDS: SUCRALFATE SUSP 1GM/10ML UD PO SCH ×4 (05:17→23:08)
[2022-05-02] MEDS: LORazepam 2 MG TAB PO PRN (05:27)
[2022-05-02 06:37] VITALS: BP 152/102
[2022-05-02] MEDS: PANTOPRAZOLE 40MG TAB (PROTONIX) PO SCH ×2 (09:13→21:11)
[2022-05-02] MEDS: FOLIC ACID 1MG TAB PO SCH (09:14)
[2022-05-02] MEDS: OXAZEPAM 10MG CAP PO SCH ×2 (09:14→21:11)
[2022-05-02] MEDS: SERTRALINE HCL 25 MG TABLET PO SCH (09:15)
[2022-05-02] MEDS: MULTIVITAMINS/MINERALS THERAP 1 TAB PO SCH (09:15)
[2022-05-02 18:36] VITALS: BP 140/83
[2022-05-02 21:11] VITALS: BP 138/92
[2022-05-02] MEDS: traZODone 50 MG TAB PO PRN (21:11)
[2022-05-02] MEDS: PRAZOSIN 1 MG CAP PO SCH (21:11)
[2022-05-03] MEDS: SUCRALFATE SUSP 1GM/10ML UD PO SCH ×2 (04:28→12:23)
[2022-05-03 05:30] VITALS: BP 153/80
[2022-05-03 06:29] VITALS: BP 153/80
[2022-05-03] MEDS ORDERED: TRAZ-252 PO (09:33)
[2022-05-03] MEDS ORDERED: SERT25TA21 PO (09:33)
[2022-05-03] MEDS ORDERED: MINI1CAP PO (09:33)
[2022-05-03] MEDS ORDERED: OXAZ10CA3 PO (09:35)
[2022-05-03] MEDS: SERTRALINE HCL 25 MG TABLET PO SCH (09:46)
[2022-05-03] MEDS: FOLIC ACID 1MG TAB PO SCH (09:46)
[2022-05-03] MEDS: OXAZEPAM 10MG CAP PO SCH (09:46)
[2022-05-03] MEDS: PANTOPRAZOLE 40MG TAB (PROTONIX) PO SCH (09:46)
[2022-05-03] MEDS: MULTIVITAMINS/MINERALS THERAP 1 TAB PO SCH (09:46)
[2022-05-03] MEDS ORDERED: SUCR1TA PO (10:47)
[2022-05-03] MEDS ORDERED: PANT40TA29 PO (10:47)
== END 2022-05-03 13:16 | disposition home or self-care (01) | DRG 751 ==
LOC: M ED 18:59 → UNDOADMIN 04-29 03:45 → M ED INP 04-29 03:45 → M PSY 04-29 03:45
PROVIDERS: ADMIT Student in an Organized Health Care Education/Training Program; ATTEND Student in an Organized Health Care Education/Training Program
DX: F33.1 Major depressive disorder, recurrent, moderate (principal); F43.10 Post-traumatic stress disorder, unspecified; F10.230 Alcohol dependence with withdrawal, uncomplicated; F17.210 Nicotine dependence, cigarettes, uncomplicated; Z62.810 Personal history of physical and sexual abuse in childhood; Z91.51 Personal history of suicidal behavior; Z56.0 Unemployment, unspecified; Z79.899 Other long term (current) drug therapy; Z91.018 Allergy to other foods; Z90.49 Acquired absence of other specified parts of digestive tract; K92.0 Hematemesis; Z20.822 Contact with and (suspected) exposure to COVID-19

== ENCOUNTER → 2022-08-16 | Outpatient (CLI) | payer BC ==
[~2022-08-16] MED LIST changes: +CHLOR25TA PO; +MINI1CAP PO; +OXAZ10CA3 PO; +PANT40TA29 PO; +SERT25TA21 PO; +SUCR1TA PO; +TRAZ-252 PO
== END ==
LOC: M OUTALCOH 07:14
PROVIDERS: ATTEND Psychiatry & Neurology Psychiatry
DX: F10.20 Alcohol dependence, uncomplicated (principal); F12.20 Cannabis dependence, uncomplicated; F17.200 Nicotine dependence, unspecified, uncomplicated

== ENCOUNTER → 2022-09-06 | Outpatient (CLI) | payer SELFPAY | LOC: M OUTALCOH 07:21 | PROVIDERS: ATTEND Psychiatry & Neurology Psychiatry | DX: Z03.89 Encounter for observation for other suspected diseases and conditions ruled out (principal) ==

== ENCOUNTER 2022-09-30 14:00 | Outpatient (RCR) | payer SELFPAY | END 2022-10-07 | LOC: M OUTALCOH 14:00 | PROVIDERS: ATTEND Psychiatry & Neurology Psychiatry | DX: F10.20 Alcohol dependence, uncomplicated (principal); F17.200 Nicotine dependence, unspecified, uncomplicated ==

== ENCOUNTER → 2022-12-03 | Outpatient (CLI) | payer BC ==
[~2022-12-03] MED LIST changes: +ACET-897 PO; +CIPR-249 PO; +IBUP80TA PO; +[UNRECOGNIZED DRUG - OTHER]
[2022-12-03 14:27] LABS: ALBUMIN 3.7 G/DL (3.2-5.2); ALKALINE PHOSPHATASE 88 U/L (46-116); ALT/SGPT 13 U/L (7.0-40); AST/SGOT 14 U/L (<34); BILIRUBIN,TOTAL 0.5 MG/DL (0.3-1.2); BLOOD UREA NITROGEN 8 MG/DL (9-23); CALCIUM LEVEL 8.8 MG/DL (8.5-10.1); CARBON DIOXIDE LEVEL 29 MMOL/L (20-31); CHLORIDE LEVEL 104 MMOL/L (98-107); CHOLESTEROL LEVEL 226 MG/DL (<200); CHOLESTEROL RISK RATIO 7.26 (<5); CREATININE FOR GFR 0.93 MG/DL (0.70-1.30); GLOMERULAR FILTRATION RATE > 60.0 (>60); GLUCOSE, FASTING 105 MG/DL (60-100); HDL CHOLESTEROL 31.1 MG/DL (>40); LDL CHOLESTEROL 167.9 MG/DL (<100); NON-HDL-C 194.9 MG/DL; SODIUM LEVEL 140 MMOL/L (136-145); TRIGLYCERIDES LEVEL 135 MG/DL (<150)
[2022-12-03 14:29] LABS: THYROID STIMULATING HORMONE 1.397 uIU/ML (0.55-4.78)
[2022-12-03 14:30] LABS: TOTAL 25(OH) VITAMIN D 12.7 NG/ML (20.0-100.0)
== END ==
LOC: M LAB 13:36
PROVIDERS: ATTEND Nurse Practitioner Family
DX: Z13.228 Encounter for screening for other metabolic disorders (principal)

== ENCOUNTER → 2022-12-06 | Outpatient (CLI) | payer BC | LOC: M SOG 07:51 | PROVIDERS: ATTEND Orthopaedic Surgery | DX: M54.2 Cervicalgia (principal); Z53.9 Procedure and treatment not carried out, unspecified reason ==

== ENCOUNTER → 2022-12-28 | Outpatient (CLI) | payer BC | LOC: M SOG 07:58 | PROVIDERS: ATTEND Orthopaedic Surgery | DX: Z53.9 Procedure and treatment not carried out, unspecified reason (principal) ==

== ENCOUNTER → 2023-01-14 | Outpatient (CLI) | payer BC | LOC: M OUTALCOH 08:01 | PROVIDERS: ATTEND Psychiatry & Neurology Psychiatry | DX: Z13.39 Encounter for screening examination for other mental health and behavioral disorders (principal) ==

== ENCOUNTER → 2023-01-25 | Outpatient (CLI) | payer BC | LOC: M SOG 07:58 | PROVIDERS: ATTEND Orthopaedic Surgery | DX: M54.2 Cervicalgia (principal); Z53.9 Procedure and treatment not carried out, unspecified reason ==

== ENCOUNTER 2023-04-12 15:08 | Emergency (ER) | payer MEDICAID, SELFPAY ==
[~2023-04-12] VITALS: Ht 175.3 cm; Wt 64.6 kg
[2023-04-12 15:10] VITALS: BP 130/89; TEMP 97.7; O2SAT 98
[2023-04-12 16:28] LABS: AMPHETAMINES LEVEL URINE NEGATIVE (NEGATIVE); BARBITURATES URINE NEGATIVE (NEGATIVE); BENZODIAZEPINES URINE NEGATIVE (NEGATIVE); CANNABINOIDS URINE POSITIVE (NEGATIVE); COCAINE METABOLITE URINE NEGATIVE (NEGATIVE); METHADONE URINE NEGATIVE (NEGATIVE); OPIATES URINE NEGATIVE (NEGATIVE); PHENCYCLIDINE URINE NEGATIVE (NEGATIVE)
== END 2023-04-12 16:13 | disposition left against medical advice (07) ==
LOC: M ED 15:08
DX: Z53.21 Procedure and treatment not carried out due to patient leaving prior to being seen by health care provider (principal)

== ENCOUNTER 2023-04-14 16:21 | Emergency (ER) | payer MEDICAID ==
[~2023-04-14] VITALS: Ht 175.3 cm; Wt 63.8 kg
[2023-04-14 16:22] VITALS: BP 147/91; TEMP 96.8; O2SAT 98
[2023-04-14 17:33] LABS: RSV AMPLIFICATION NEGATIVE (NEGATIVE)
[2023-04-14] MEDS ORDERED: ALBU6.7H6 INH (19:21)
[2023-04-14] MEDS ORDERED: BENZ200C70 PO (19:21)
== END 2023-04-14 19:30 | disposition home or self-care (01) ==
LOC: M ED 16:21
DX: J06.9 Acute upper respiratory infection, unspecified (principal); F43.10 Post-traumatic stress disorder, unspecified; F31.9 Bipolar disorder, unspecified; F10.10 Alcohol abuse, uncomplicated; F17.200 Nicotine dependence, unspecified, uncomplicated; Z91.018 Allergy to other foods

== ENCOUNTER 2023-04-24 17:15 | Emergency (ER) | payer BC, MEDICAID ==
[~2023-04-24] VITALS: Ht 175.3 cm; Wt 62.1 kg
[~2023-04-24 17:15] MED LIST changes: +ALBU6.7H6 INH; +BENZ200C70 PO
[2023-04-24 18:22] LABS: BASO % 0.3 % (0.0-1.0); HEMATOCRIT 42.6 % (42.0-52.0); HEMOGLOBIN 15.5 g/dl (13.5-17.5); LYMPH # 1.2 10^3/uL (1.5-5.0); LYMPH % 9.4 % (24.0-44.0); MEAN CORPUSCULAR HEMOGLOBIN 30.6 pg (27.0-33.0); MEAN CORPUSCULAR HGB CONC 36.4 g/dl (32.0-36.5); MEAN CORPUSCULAR VOLUME 84.2 fl (80.0-96.0); MONO # 0.7 10^3/uL (0.0-0.8); MONO % 5.8 % (2.0-8.0); NEUTROPHILS # 10.6 10^3/uL (1.5-8.5); NEUTROPHILS % 83.9 % (36.0-66.0); RED BLOOD COUNT 5.06 10^6/uL (4.30-6.10); WHITE BLOOD COUNT 12.6 10^3/uL (4.0-10.0)
[2023-04-24 18:34] LABS: INR 1.11; PARTIAL THROMBOPLASTIN TIME 33.5 SECONDS (24.8-34.2)
[2023-04-24 18:49] LABS: LIPASE 40 U/L (12-53)
[2023-04-24 18:51] LABS: ALBUMIN 3.7 G/DL (3.2-5.2); ALKALINE PHOSPHATASE 121 U/L (46-116); ALT/SGPT 73 U/L (7.0-40); AST/SGOT 71 U/L (<34); BILIRUBIN,DIRECT 0.3 MG/DL (<0.4); BILIRUBIN,TOTAL 0.9 MG/DL (0.3-1.2); BLOOD UREA NITROGEN 9 MG/DL (9-23); CARBON DIOXIDE LEVEL 31 MMOL/L (20-31); CHLORIDE LEVEL 95 MMOL/L (98-107); CREATININE FOR GFR 0.76 MG/DL (0.70-1.30); GLOMERULAR FILTRATION RATE > 60.0 (>60); GLUCOSE, FASTING 131 MG/DL (60-100); POTASSIUM SERUM 4.1 MMOL/L (3.5-5.1); SODIUM LEVEL 134 MMOL/L (136-145); TOTAL PROTEIN 8.1 G/DL (5.7-8.2)
[2023-04-24] MEDS: NS 1,000 ML IV ONE (19:36)
[2023-04-24] MEDS: ONDANSETRON 4MG 2ML VIAL IV ONE ×2 (19:37→20:58)
[2023-04-24] MEDS: PIPERACILLIN/TAZOBACTAM SOD 3.375 GM in D5W MINI-BAG PLUS 50 ML IV ONE (19:37)
[2023-04-24] MEDS: PANTOPRAZOLE 40MG VIAL IV ONE (19:37)
[2023-04-24 20:13] LABS: HEPATITIS C VIRUS ABY INDEX 0.09 INDEX (<0.8)
[2023-04-24 20:14] LABS: HEPATITIS B CORE ANTIBODY IGM NEGATIVE (NEGATIVE)
[2023-04-24] MEDS ORDERED: ISOVUE-370 76% 100ML VIAL As Ordered ONE (20:19)
[2023-04-24] MEDS: LORazepam 2 MG TAB PO PRN (21:30)
[2023-04-24] MEDS: THIAMINE 100 MG TAB PO SCH (21:30)
[2023-04-24] MEDS: MULTIVITAMINS/MINERALS THERAP 1 TAB PO SCH (22:00)
[2023-04-24] MEDS: FOLIC ACID 1MG TAB PO SCH (22:00)
[2023-04-24] MEDS ORDERED: ONDA4TAB6 PO (22:22)
[2023-04-24 22:26] VITALS: BP 114/73; TEMP 98.3; O2SAT 96
== END 2023-04-24 22:39 | disposition home or self-care (01) ==
LOC: M ED 17:15
DX: F10.239 Alcohol dependence with withdrawal, unspecified (principal); R91.1 Solitary pulmonary nodule; K76.0 Fatty (change of) liver, not elsewhere classified; K76.89 Other specified diseases of liver; F41.9 Anxiety disorder, unspecified; F32.A Depression, unspecified; F43.10 Post-traumatic stress disorder, unspecified; F17.200 Nicotine dependence, unspecified, uncomplicated; Z91.018 Allergy to other foods
CPT/HCPCS: 74177; 76705; 80048; 80074; 80076; 80143; 81001; 83690; 85025; 85610; 85730; 86850; 86900; 86901; 87486; 87581; 87633; 87798; 96365; 96366; 96375; 96376; 99284; C9113; J2405; J2543; Q9967

== ENCOUNTER 2023-09-12 21:08 | Emergency (ER) | payer BC ==
[~2023-09-12] VITALS: Ht 175.3 cm; Wt 65.2 kg
[~2023-09-12 21:08] MED LIST changes: +ONDA-282 PO
[2023-09-12 22:19] LABS: BASO # 0.1 10^3/uL (0.0-0.2); BASO % 0.9 % (0.0-1.0); EOS # 0.2 10^3/uL (0.0-0.5); EOS % 2.8 % (0.0-3.0); HEMATOCRIT 37.3 % (42.0-52.0); HEMOGLOBIN 13.5 g/dl (13.5-17.5); LYMPH # 2.3 10^3/uL (1.5-5.0); LYMPH % 35.3 % (24.0-44.0); MEAN CORPUSCULAR HEMOGLOBIN 31.5 pg (27.0-33.0); MEAN CORPUSCULAR HGB CONC 36.2 g/dl (32.0-36.5); MEAN CORPUSCULAR VOLUME 86.9 fl (80.0-96.0); MONO # 0.8 10^3/uL (0.0-0.8); MONO % 12.5 % (2.0-8.0); NEUTROPHILS # 3.1 10^3/uL (1.5-8.5); NEUTROPHILS % 48.2 % (36.0-66.0); PLATELET COUNT, AUTOMATED 149 10^3/uL (150-450); RED BLOOD COUNT 4.29 10^6/uL (4.30-6.10); WHITE BLOOD COUNT 6.5 10^3/uL (4.0-10.0)
[2023-09-12] MEDS: NS 1,000 ML IV ONE (22:21)
[2023-09-12] MEDS: methylPREDNISolone 125MG 2ML VIAL IV ONE (22:21)
[2023-09-12] MEDS: IPRATROPIUM 0.5MG/ALBUTEROL 2.5MG INH SOL UD 3ML (DUONEB) NEB ONE (22:27)
[2023-09-12 22:49] LABS: AMPHETAMINES LEVEL URINE NEGATIVE (NEGATIVE); BARBITURATES URINE NEGATIVE (NEGATIVE); BENZODIAZEPINES URINE NEGATIVE (NEGATIVE); CANNABINOIDS URINE NEGATIVE (NEGATIVE); COCAINE METABOLITE URINE NEGATIVE (NEGATIVE); METHADONE URINE NEGATIVE (NEGATIVE); OPIATES URINE NEGATIVE (NEGATIVE); PHENCYCLIDINE URINE NEGATIVE (NEGATIVE)
[2023-09-12 22:53] LABS: ALBUMIN 3.3 G/DL (3.2-5.2); ALKALINE PHOSPHATASE 113 U/L (46-116); ALT/SGPT 49 U/L (7.0-40); AST/SGOT 62 U/L (<34); BILIRUBIN,DIRECT < 0.1 MG/DL (<0.4); BILIRUBIN,TOTAL 0.2 MG/DL (0.3-1.2); BLOOD UREA NITROGEN 8 MG/DL (9-23); CALCIUM LEVEL 8.3 MG/DL (8.5-10.1); CARBON DIOXIDE LEVEL 29 MMOL/L (20-31); CHLORIDE LEVEL 100 MMOL/L (98-107); GLOMERULAR FILTRATION RATE > 60.0 (>60); GLUCOSE, FASTING 89 MG/DL (60-100); SALICYLATE LEVEL < 3.0 MG/DL (<30); SODIUM LEVEL 135 MMOL/L (136-145); TOTAL PROTEIN 7.3 G/DL (5.7-8.2)
[2023-09-12 22:55] LABS: THYROID STIMULATING HORMONE 0.991 uIU/ML (0.55-4.78); THYROXINE (T4) 6.5 UG/DL (4.5-10.9)
[2023-09-12 23:04] LABS: PROCALCITONIN 0.06 ng/ml
[2023-09-12 23:51] LABS: ETHYL ALCOHOL (ETHANOL) 0.326 % (0.000-0.010)
[2023-09-13 10:20] VITALS: BP 148/99; TEMP 97.3; O2SAT 100
== END 2023-09-13 10:23 | disposition short-term general hospital (02) ==
LOC: M ED 21:08
DX: F10.20 Alcohol dependence, uncomplicated (principal); F43.10 Post-traumatic stress disorder, unspecified; F31.9 Bipolar disorder, unspecified; F17.200 Nicotine dependence, unspecified, uncomplicated; Z91.018 Allergy to other foods
CPT/HCPCS: 71045; 80048; 80076; 80143; 80307; 82077; 83605; 83880; 84145; 84436; 84443; 85025; 87040; 87486; 87581; 87633; 87798; 93005; 93041; 94640; 94760; 96374; 99285; J2919

== ENCOUNTER → 2023-09-19 | Outpatient (CLI) | payer BC | LOC: M OUTALCOH 11:46 | PROVIDERS: ATTEND Psychiatry & Neurology Psychiatry | DX: F10.20 Alcohol dependence, uncomplicated (principal); F17.200 Nicotine dependence, unspecified, uncomplicated ==

== ENCOUNTER 2023-10-19 08:40 | Outpatient (RCR) | payer BC ==
[2023-11-07] MEDS ORDERED: FOLI1TAB11 PO (11:04)
[2023-11-07] MEDS ORDERED: B-1100TA2 PO (11:04)
[2023-11-07] MEDS ORDERED: LORA-1041 PO (11:04)
== END 2023-11-07 ==
LOC: M OUTALCOH 08:40
PROVIDERS: ATTEND Psychiatry & Neurology Psychiatry
DX: F10.20 Alcohol dependence, uncomplicated (principal); F17.200 Nicotine dependence, unspecified, uncomplicated

== ENCOUNTER 2023-12-12 17:38 | Emergency (ER) | payer BC, MEDICAID ==
[~2023-12-12] VITALS: Ht 175.3 cm; Wt 66.4 kg
[~2023-12-12 17:38] MED LIST changes: +B-1100TA2 PO; +FOLI1TAB11 PO; +LORA-1041 PO
[2023-12-12] MEDS: ACETAMINOPHEN 500 MG TAB PO ONE (18:00)
[2023-12-12 20:28] VITALS: BP 126/68; TEMP 100.1; O2SAT 96
[2023-12-12] MEDS ORDERED: ZITHTAB PO (20:51)
[2023-12-12] MEDS: AZITHROMYCIN 250MG TABLET PO ONE (21:00)
== END 2023-12-12 20:58 | disposition home or self-care (01) ==
LOC: M ED 17:38
DX: J06.9 Acute upper respiratory infection, unspecified (principal); Z11.52 Encounter for screening for COVID-19; F10.10 Alcohol abuse, uncomplicated; F17.200 Nicotine dependence, unspecified, uncomplicated

== ENCOUNTER → 2024-05-29 | Outpatient (REF) | payer BC ==
[~2024-05-29] MED LIST changes: +ZITHTAB PO
[2024-05-29 14:29] LABS: BASO # 0.1 10^3/uL (0.0-0.2); BASO % 0.9 % (0.0-1.0); EOS # 0.1 10^3/uL (0.0-0.5); EOS % 2.1 % (0.0-3.0); HEMATOCRIT 40.1 % (42.0-52.0); HEMOGLOBIN 13.9 g/dl (13.5-17.5); LYMPH # 1.7 10^3/uL (1.5-5.0); LYMPH % 29.8 % (24.0-44.0); MEAN CORPUSCULAR HGB CONC 34.7 g/dl (32.0-36.5); MEAN CORPUSCULAR VOLUME 89.5 fl (80.0-96.0); MONO # 0.5 10^3/uL (0.0-0.8); MONO % 7.9 % (2.0-8.0); NEUTROPHILS # 3.4 10^3/uL (1.5-8.5); NEUTROPHILS % 58.9 % (36.0-66.0); RED BLOOD COUNT 4.48 10^6/uL (4.30-6.10); WHITE BLOOD COUNT 5.7 10^3/uL (4.0-10.0)
[2024-05-29 14:37] LABS: ALBUMIN 3.5 G/DL (3.2-5.2); ALKALINE PHOSPHATASE 98 U/L (40-129); ALT/SGPT 35 U/L (7.0-40); AST/SGOT 59 U/L (<34); BILIRUBIN,TOTAL 0.2 MG/DL (0.3-1.2); BLOOD UREA NITROGEN 9 MG/DL (9-23); CALCIUM LEVEL 8.8 MG/DL (8.5-10.1); CARBON DIOXIDE LEVEL 29 MMOL/L (20-31); CHLORIDE LEVEL 107 MMOL/L (98-107); CHOLESTEROL LEVEL 220 MG/DL (<200); CHOLESTEROL RISK RATIO 4.09 (<5); GLOMERULAR FILTRATION RATE > 90.0 (>60); GLUCOSE, FASTING 83 MG/DL (60-100); HDL CHOLESTEROL 53.7 MG/DL (>40); LDL CHOLESTEROL 140.7 MG/DL (<100); MAGNESIUM LEVEL 1.8 MG/DL (1.8-2.4); NON-HDL-C 166.3 MG/DL; POTASSIUM SERUM 4.1 MMOL/L (3.5-5.1); SODIUM LEVEL 141 MMOL/L (136-145); TOTAL PROTEIN 7.3 G/DL (5.7-8.2); TRIGLYCERIDES LEVEL 128 MG/DL (<150)
[2024-05-29 14:38] LABS: FOLATE 17.6 NG/ML (>5.4); TOTAL 25(OH) VITAMIN D 15.4 NG/ML (20.0-100.0)
[2024-05-29 14:39] LABS: VITAMIN B12 LEVEL 332 PG/ML (211-911)
== END ==
LOC: M LAB REF 13:36
PROVIDERS: ATTEND Nurse Practitioner Family
DX: F10.20 Alcohol dependence, uncomplicated (principal); Z13.220 Encounter for screening for lipoid disorders; E55.9 Vitamin D deficiency, unspecified

== ENCOUNTER 2024-08-20 19:13 | Emergency (ER) | payer BC, SELFPAY ==
[~2024-08-20] VITALS: Ht 175.3 cm; Wt 68.0 kg
[~2024-08-20 19:13] MED LIST changes: +LIDO1ADH93 TD; -LIDO5DIS41 TD; +OMEP40CA4 PO
[2024-08-20 20:02] LABS: PLATELET COUNT, AUTOMATED 296 10^3/uL (150-450)
[2024-08-20 20:22] LABS: AMPHETAMINES LEVEL URINE NEGATIVE (NEGATIVE); BARBITURATES URINE NEGATIVE (NEGATIVE); BENZODIAZEPINES URINE NEGATIVE (NEGATIVE); COCAINE METABOLITE URINE NEGATIVE (NEGATIVE); METHADONE URINE NEGATIVE (NEGATIVE); OPIATES URINE NEGATIVE (NEGATIVE); PHENCYCLIDINE URINE NEGATIVE (NEGATIVE)
[2024-08-20 20:23] LABS: CANNABINOIDS URINE POSITIVE (NEGATIVE)
[2024-08-20 20:24] LABS: ETHYL ALCOHOL (ETHANOL) 0.291 % (0.000-0.010)
[2024-08-20 20:25] LABS: SALICYLATE LEVEL < 3.0 MG/DL (<30)
[2024-08-20 20:26] LABS: ALT/SGPT 19 U/L (7.0-40); AST/SGOT 35 U/L (<34); CALCIUM LEVEL 8.4 MG/DL (8.5-10.1); CARBON DIOXIDE LEVEL 21 MMOL/L (20-31); CHLORIDE LEVEL 105 MMOL/L (98-107); CREATININE FOR GFR 0.83 MG/DL (0.70-1.30); GLOMERULAR FILTRATION RATE > 90.0 (>60); POTASSIUM SERUM 4.0 MMOL/L (3.5-5.1); SODIUM LEVEL 141 MMOL/L (136-145)
[2024-08-21] MEDS ORDERED: HOME MED LIST COMPLETE! XX SCH (08:55)
[2024-08-21 13:44] VITALS: BP 148/78; TEMP 97.3; O2SAT 98
== END 2024-08-21 13:46 | disposition home or self-care (01) ==
LOC: M ED 19:13
DX: F10.14 Alcohol abuse with alcohol-induced mood disorder (principal); Z91.018 Allergy to other foods

== ENCOUNTER 2024-11-16 00:12 | Emergency (ER) | payer BC ==
[~2024-11-16] VITALS: Ht 175.3 cm; Wt 63.0 kg
[2024-11-16 00:15] VITALS: BP 137/91; TEMP 96.2; O2SAT 95
== END 2024-11-16 02:10 | disposition left against medical advice (07) ==
LOC: M ED 00:12
DX: Z53.21 Procedure and treatment not carried out due to patient leaving prior to being seen by health care provider (principal)